=== PATIENT | female | born 1995 | race Caucasian/White ===

== ENCOUNTER 2017-10-11 19:17 | Emergency (ER) | payer OTHER, SELFPAY ==
[2017-10-11] MEDS ORDERED: FENTANYL CITR 100 MCG/2 ML ONE (20:07)
[2017-10-11] MEDS ORDERED: ONDANSETRON 4 MG/2 ML VIAL ONE (20:07)
[2017-10-11 20:23] LABS: Basophils % 0.4 % (0-1.3); Eosinophils % 0.2 % (0-4.4)
[2017-10-11 20:27] LABS: Absolute Lymphocytes (CBC) 1.9 K/uL (0.7-4.9); Absolute Monocytes 1.2 K/uL (0.1-1.3); Absolute Neutrophil 12.8 K/uL (1.8-8.0); Hematocrit 38.1 % (36.0-45.0); MCH 27.5 pg (27.0-35.0); MCV 82.4 fL (80-100); Monocytes % 7.3 % (3.3-12.3); RBC Red Blood Cell Count 4.62 M/uL (3.86-4.86)
--- NOTE | 2017-10-11 20:41 | RAD REPORT ---
EXAM DESCRIPTION: US - Transvaginal Study Probe - 10/11/2017 8:29 pm CLINICAL HISTORY: Vaginal pain, pelvic pain COMPARISON: None. TECHNIQUE: Endovaginal sonography was performed. FINDINGS: Endometrium is 3 mm with no focal endometrial mass, polyp or other suspicious finding. No myometrial mass. Uterus is 6.5 x 3.7 x 5.0 cm. Right ovary is 2.9 x 2.0 x 2.9 cm. Left ovary is 2.7 x 1.7 x 2.0 cm. Small cysts and follicles are seen in each ovary. Doppler evaluation shows normal bloo d flow within the ovarian stroma. No dominant solid or cystic ovarian or adnexal finding. No free flu id or blood in the cul-de-sac. No fallopian tube dilatation. IMPRESSION: Endovaginal ultrasound shows no significant or suspicious finding.
[2017-10-11 21:00] LABS: Albumin 4.1 g/dL (3.4-5.0); Bilirubin Direct 0.1 mg/dL (0-0.2); Bilirubin Total 0.4 mg/dL (0.2-1.0); Potassium 3.9 mmol/L (3.5-5.1); Protein, Total 8.3 g/dL (6.4-8.2)
[2017-10-11 21:31] LABS: Urine Blood NEGATIVE (NEG); Urine Glucose NEGATIVE (NEG); Urine Protein 1+ (NEG); Urine Specific Gravity 1.025 (1.005-1.030)
[2017-10-11] MEDS ORDERED: KETOROLAC 30 MG/ML INJ ONE (21:34)
[2017-10-11 21:39] LABS: Urine Bacteria <20 /HPF (<20); Urine Culture Reflex Order REFLEXED; Urine RBC <5 /HPF (NONE SEEN)
--- NOTE | 2017-10-11 22:12 | RAD REPORT ---
EXAM DESCRIPTION: CT - Abdomen Pelvis W Contrast - 10/11/2017 9:38 pm CLINICAL HISTORY: Vaginal pain, pelvic pain COMPARISON: June 2016 TECHNIQUE: Biphasic, helical CT imaging of the abdomen and pelvis was performed following 100 ml non -ionic IV contrast. Oral contrast was given. All CT scans are performed using dose optimization technique as appropriate and may include automated exposure control or mA/KV adjustment according to patient size. FINDINGS: No suspicious findings in the lung bases. The liver, spleen, and pancreas show no suspicious findings. Gallbladder and biliary tree are also wi thout suspicious finding. Symmetric renal function is seen with no hydronephrosis or suspicious renal mass. No pyelonephritis o r acute renal parenchymal process. Urinary bladder is fully contracted limiting assessment. No suspic ious uterine finding. Ovaries within normal limits. No gastric dilatation or gastric wall thickening. No dilated small bowel loops. Appendix is not clear ly defined. No indirect evidence for appendicitis. Fluid-filled rectum is seen with mild prominence o f the krause. Overall colon krause are mildly prominent. Colon is mostly decompressed and this limits a ssessment. No free air, free fluid or inflammatory stranding. No hernia, mass or bulky lymphadenopathy. No adre nal abnormality. No suspicious bony findings. IMPRESSION: Appendix is not well visualized. No indirect evidence for appendicitis or other surgical ly emergent finding. Suspected mild proctitis/colitis. Correlation is needed with any exam findings. No fallopian tube dilatation or [employer] acute finding seen.
[2017-10-11] MEDS ORDERED: METRONIDAZOLE 500mg IVPB 500 MG/100 ML BAG IV ONE (22:34)
[2017-10-11] MEDS ORDERED: FLUCONAZOLE 100 MG TAB ONE (22:41)
[2017-10-11] MEDS ORDERED: levoFLOXacin 750 MG TAB ONE (22:41)
--- NOTE | 2017-10-11 22:49 | EDPHYS ---
Physician Documentation [facility] Name: Orin Jackman Age: 21 yrs Sex: Female : 1995 Arrival Date: 10/11/2017 Time: 19:21 Bed 27 Private MD: ED Physician Lebron Ordaz HPI: 10/11 19:50 This 21 yrs old Female presents to ER via Wheelchair with complaints of wa Pelvic Pain, Vaginal Pain. 19:50 The patient presents with pelvic pain, that is located in/on the pelvis, the pain does wa not radiate, the pain is described as severe, constant, sharp, urinary symptoms, denies urinary symptoms, denies vag discharge. Onset: The symptoms/episode began/occurred just prior to arrival. Modifying factors: The symptoms are alleviated by nothing, the symptoms are aggravated by nothing. Associated signs and symptoms: Pertinent positives: vomiting, Pertinent negatives: diarrhea, dyspareunia, dysuria, fever, hematuria, urinary frequency, vaginal bleeding, vaginal discharge. Severity of symptoms: At their worst the symptoms were severe, in the emergency department the symptoms are unchanged. The patient has experienced similar episodes in the past, a few times, but not this severe. ovarian cysts were the reason. The patient has not recently seen a physician. 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 - Social history:: Smoking status: Patient uses tobacco products, smokes one-half pack cigarettes per day. - Ebola Screening: : Patient negative for fever greater than or equal to 101.5 degrees Fahrenheit, and additional compatible Ebola Virus Disease symptoms Patient denies exposure to infectious person Patient denies travel to an Ebola-affected area in the 21 days before illness onset No symptoms or risks identified at this time. - Family history:: not pertinent. - Hospitalizations: : No recent hospitalization is reported. ROS: 19:53 Positive for pelvic pain, Negative for urinary symptoms, vaginal bleeding, vaginal wa discharge. 19:53 Constitutional: Negative for fever, chills, and weight loss, Eyes: Negative for injury, pain, redness, and discharge, ENT: Negative for injury, pain, and discharge, Neck: Negative for injury, pain, and swelling, Cardiovascular: Negative for chest pain, palpitations, and edema, Respiratory: Negative for shortness of breath, cough, wheezing, and pleuritic chest pain, Abdomen/GI: Negative for abdominal pain, nausea, vomiting, diarrhea, and constipation, Back: Negative for injury and pain, MS/Extremity: Negative for injury and deformity, Skin: Negative for injury, rash, and discoloration, Neuro: Negative for headache, weakness, numbness, tingling, and seizure, Psych: Negative for depression, anxiety, suicide ideation, homicidal ideation, and hallucinations. 19:53 : Positive for pelvic pain, Negative for urinary symptoms, foul smelling urine, vaginal bleeding, vaginal discharge. Exam: 19:54 Head/Face: Normocephalic, atraumatic. Eyes: Pupils equal round and reactive to light, wa extra-ocular motions intact. Lids and lashes normal. Conjunctiva and sclera are non-icteric and not injected. Cornea within normal limits. Periorbital areas with no swelling, redness, or edema. ENT: Nares patent. No nasal discharge, no septal abnormalities noted. Tympanic membranes are normal and external auditory canals are clear. Oropharynx with no redness, swelling, or masses, exudates, or evidence of obstruction, uvula midline. Mucous membranes moist. Neck: Trachea midline, no thyromegaly or masses palpated, and no cervical lymphadenopathy. Supple, full range of motion without nuchal rigidity, or vertebral point tenderness. No Meningismus. Chest/axilla: Normal chest wall appearance and motion. Nontender with no deformity. No lesions are appreciated. Cardiovascular: Regular rate and rhythm with a normal S1 and S2. No gallops, murmurs, or rubs. Normal PMI, no JVD. No pulse deficits. Respiratory: Lungs have equal breath sounds bilaterally, clear to auscultation and percussion. No rales, rhonchi or wheezes noted. No increased work of breathing, no retractions or nasal flaring. Back: No spinal tenderness. No costovertebral tenderness. Full range of motion. Skin: Warm, dry with normal turgor. Normal color with no rashes, no lesions, and no evidence of cellulitis. MS/ Extremity: Pulses equal, no cyanosis. Neurovascular intact. Full, normal range of motion. Neuro: Awake and alert, GCS 15, oriented to person, place, time, and situation. Cranial nerves II-XII grossly intact. Motor strength 5/5 in all extremities. Sensory grossly intact. Cerebellar exam normal. Normal gait. Psych: Awake, alert, with orientation to person, place and time. Behavior, mood, and affect are within normal limits. 19:54 Constitutional: The patient appears alert, pale. appears in discomfort due to pain. legs curled up 19:54 Abdomen/GI: Exam negative for Inspection: abdomen appears normal, Bowel sounds: normal, Palpation: soft, in all quadrants, moderate abdominal tenderness, in the pelvis. 22:20 : CVA tenderness, is absent, Pelvic Exam: External exam: is normal, Speculum exam: no wa bleeding is noted, os that is closed, no tissue in vagina is seen, bimanual exam reveals no cervical motion tenderness, the nurse was present for the exam, noted yeast-like discharge in vag vault. mild cervicitis noted at os. Vital Signs: 19:36 BP 131 / 88; Pulse 90; Resp 18; Temp 97.6; Pulse Ox 100% on R/A; Weight 49.9 kg; Height aj 5 ft. 3 in. (160.02 cm); 21:06 BP 101 / 60; Pulse 60; Resp 16; Pulse Ox 100% on R/A; kr2 22:24 BP 121 / 68; Pulse 70; Resp 15; Pulse Ox 100% on R/A; kr2 19:36 Body Mass Index 19.49 (49.90 kg, 160.02 cm) MDM: 19:35 Patient medically screened. ne 19:55 Differential diagnosis: ectopic , endometriosis, ovarian cyst, ruptured ne ectopic . 22:45 Data reviewed: vital signs, nurses notes, lab test result(s). Test interpretation: by ne ED physician or midlevel provider: elevated wbc. UA noted for 20-30 wbc's. pelvic US wnl. CT abd/pelvis: proctitis and colitis. Response to treatment: the patient's symptoms have markedly improved after treatment. ED course: on further discussion, pt admits to diarrhea. desired to go home as no one to take care of her kids. will d/c with abx and close GI f/u. . 10/11 19:49 Order name: Basic Metabolic Panel; Complete Time: 21:21 ne 10/11 19:49 Order name: CBC with Diff; Complete Time: 21:21 ne 10/11 19:49 Order name: Hepatic Function; Complete Time: 21:22 ne 10/11 19:49 Order name: Urine Microscopic Only; Complete Time: 22:22 ne 10/11 21:23 Order name: Wet Prep; Complete Time: 22:44 ne 10/11 21:23 Order name: GC (GONORR/CHLAMYDIA) Probe ne 10/11 20:08 Order name: Transvaginal Study Probe; Complete Time: 21:21 [facility] 10/11 20:30 Order name: CT Abd/Pelvis - W/Contrast; Complete Time: 22:22 ne 10/11 21:29 Order name: Urine Dipstick--Ancillary (enter results); Complete Time: 22:22 nc 10/11 21:29 Order name: Urine --Ancillary (enter results); Complete Time: 22:22 nc 10/11 21:40 Order name: Urine Culture [facility] 10/11 19:49 Order name: Urine Test (obtain specimen); Complete Time: 21:41 ne 10/11 19:49 Order name: IV Saline Lock; Complete Time: 21:02 ne 10/11 19:49 Order name: Labs collected and sent; Complete Time: 21:03 ne 10/11 19:49 Order name: Urine Dipstick-Ancillary (obtain specimen); Complete Time: 21:41 ne 10/11 21:22 Order name: Pelvic Exam Setup; Complete Time: 21:41 ne Administered Medications: 20:05 Drug: Zofran 4 mg Route: IVP; Site: right antecubital; kr2 21:09 Follow up: Response: No adverse reaction kr2 20:05 Drug: fentaNYL (PF) 50 mcg Route: IVP; Site: right antecubital; kr2 21:08 Follow up: Response: No adverse reaction; Pain is decreased kr2 21:38 Drug: TORadol 30 mg Route: IVP; Site: right forearm; kr2 22:13 Follow up: Response: No adverse reaction; Pain is decreased kr2 22:28 CANCELLED (Physician Discretion): Zosyn 3.375 grams IVPB once over 60 mins; (mix in NS ne 100 mL) 22:34 Drug: Flagyl 500 mg Volume: 100 ml; Route: IVPB; Rate: 200 ml/hr; Infused Over: 30 mg2 mins; Site: right forearm; 22:43 Drug: DiFLUcan 150 mg Route: PO; mg2 22:44 Drug: LevaQUIN 750 mg Route: PO; mg2 Disposition: 10/11/17 22:48 Discharged to Home. Impression: Acute colitis, Acute proctitis. - Condition is Stable. - Discharge Instructions: Proctitis, Colitis. - Prescriptions for Flagyl 500 mg Oral Tablet - take 1 tablet by ORAL route every 8 hours for 7 days; 21 tablet. Cipro 500 mg Oral Tablet - take 1 tablet by ORAL route every 12 hours for 7 days; 14 tablet. Zofran 4 mg Oral Tablet - take 1 tablet by ORAL route every 12 hours As needed; 20 tablet. Tramadol 50 mg Oral Tablet - take 1 tablet by ORAL route every 8 hours as needed; 12 tablet. - Medication Reconciliation Form, Thank You Letter, Antibiotic Education, Prescription Opioid Use form. - Follow up: Lebron Barcenas MD; When: 1 - 2 days; Reason: Recheck today's complaints. - Problem is new. - Symptoms have improved. - Notes: take antibiotics as prescribed. you need to follow up with the gastro doctor to be checked for inflammatory bowel disease Signatures: Dispatcher [employer] EDMS Valerie Cruz RN RN aj Lebron Ordaz MD MD ne Whit Jensen RN RN kr2 Alirio Sandhu RN RN mg2 Corrections: (The following items were deleted from the chart) 20:29 20:15 Pelvis Complete+US.RAD.BRZ ordered. EDPA EDMS 22:28 22:27 Zosyn 3.375 grams IVPB once over 60 mins; (mix in NS 100 mL) ordered. [facility] 23:06 22:48 10/11/2017 22:48 Discharged to Home. Impression: Acute colitis; Acute proctitis. mg2 Condition is Stable. Forms are Medication Reconciliation Form, Thank You Letter, Antibiotic Education, Prescription Opioid Use. Follow up: Lebron Barcenas; When: 1 - 2 days; Reason: Recheck today's complaints. Problem is new. Symptoms have improved. wa
--- NOTE | 2017-10-11 22:49 | ER ---
Nurse's Notes [facility] Name: Orin Jackman Age: 21 yrs Sex: Female : 1995 Arrival Date: 10/11/2017 Time: 19:21 Bed 27 Private MD: Diagnosis: Acute colitis;Acute proctitis Presentation: 10/11 19:34 Presenting complaint: Patient states: Vaginal and pelvic pain since this AM. Denies aj vaginal bleeding, reports normal period. Denies burning with urination. Transition of care: patient was not received from another setting of care. Onset of symptoms was October 11, 2017. Risk Assessment: Do you want to hurt yourself or someone else? Patient reports no desire to harm self or others. Initial Sepsis Screen: Does the patient meet any 2 criteria? No. Patient's initial sepsis screen is negative. Does the patient have a suspected source of infection? No. Patient's initial sepsis screen is negative. Care prior to arrival: None. 19:34 Method Of Arrival: Wheelchair aj 19:34 Acuity: ROB 3 aj Triage Assessment: 19:36 General: Appears in no apparent distress. uncomfortable, Behavior is calm, cooperative, aj appropriate for age. Pain: Complains of pain in pelvis. Neuro: Level of Consciousness is awake, alert, obeys commands, Oriented to person, place, time, situation, Appropriate for age. Respiratory: Airway is patent Respiratory effort is even, unlabored, Respiratory pattern is regular, symmetrical. Derm: Skin is intact, is healthy with good turgor, Skin is pink, warm \\T\\ dry. normal. 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 - Social history:: Smoking status: Patient uses tobacco products, smokes one-half pack cigarettes per day. - Ebola Screening: : Patient negative for fever greater than or equal to 101.5 degrees Fahrenheit, and additional compatible Ebola Virus Disease symptoms Patient denies exposure to infectious person Patient denies travel to an Ebola-affected area in the 21 days before illness onset No symptoms or risks identified at this time. - Family history:: not pertinent. - Hospitalizations: : No recent hospitalization is reported. Screenin:30 Abuse screen: Denies threats or abuse. Denies injuries from another. Nutritional kr2 screening: No deficits noted. Tuberculosis screening: No symptoms or risk factors identified. Fall Risk None identified. Assessment: 19:30 General: Appears in no apparent distress. uncomfortable, slender, Behavior is kr2 cooperative, anxious, restless. Pain: Complains of pain in pelvis Pain currently is 10 out of 10 on a pain scale. Quality of pain is described as aching, sharp, Is continuous, Alleviated by nothing. Aggravated by increased activity. Neuro: Level of Consciousness is awake, alert, obeys commands, Oriented to person, place, time, situation. Cardiovascular: Capillary refill < 3 seconds in bilateral fingers Patient's skin is warm and dry. Respiratory: Airway is patent Respiratory effort is even, unlabored, Respiratory pattern is regular, symmetrical. GI: Abdomen is flat, non-distended. : Denies burning with urination. EENT: Oral mucosa is dry. Derm: Skin is intact, is healthy with good turgor, Skin is pale, pink. Musculoskeletal: Circulation, motion, and sensation intact. 21:06 Reassessment: Patient appears in no apparent distress at this time. Patient and/or kr2 family updated on plan of care and expected duration. Pain level reassessed. Patient is alert, oriented x 3, equal unlabored respirations, skin warm/dry/pink. Patient states symptoms have improved. 21:30 Reassessment: Patient states she is starting to have pain again, 10/21. Dr. Sushma rivero notified, see MAY. 22:24 Reassessment: Patient appears in no apparent distress at this time. Patient and/or kr2 family updated on plan of care and expected duration. Pain level reassessed. Patient is alert, oriented x 3, equal unlabored respirations, skin warm/dry/pink. Patient states feeling better. Patient states symptoms have improved. Vital Signs: 19:36 BP 131 / 88; Pulse 90; Resp 18; Temp 97.6; Pulse Ox 100% on R/A; Weight 49.9 kg; Height aj 5 ft. 3 in. (160.02 cm); 21:06 BP 101 / 60; Pulse 60; Resp 16; Pulse Ox 100% on R/A; kr2 22:24 BP 121 / 68; Pulse 70; Resp 15; Pulse Ox 100% on R/A; kr2 19:36 Body Mass Index 19.49 (49.90 kg, 160.02 cm) ED Course: 19:21 Patient arrived in ED. es 19:30 Patient has correct armband on for positive identification. Bed in low position. Call kr2 light in reach. Side rails up X 1. Adult w/ patient. Pulse ox on. NIBP on. Door closed. Noise minimized. Warm blanket given. Head of bed elevated. 19:35 Lebron Ordaz MD is Attending Physician. wa 19:35 Triage completed. aj 19:36 Arm band placed on left wrist. aj 19:55 Whit Jensen, RN is Primary Nurse. kr2 20:00 Inserted saline lock: 20 gauge in right antecubital area, using aseptic technique. kr2 Blood collected. 20:30 Transvaginal Study Probe In Process Unspecified. EDMS 20:31 Radiology exam delayed due to lab results not completed at this time. test sj not completed at this time. 21:04 Radiology exam delayed due to test not completed at this time. sj 21:16 Radiology exam delayed due to test not completed at this time. sj 21:[address] nj 21:39 CT completed. Patient tolerated procedure well. Patient moved back from CT. nj 21:39 CT Abd/Pelvis - W/Contrast In Process Unspecified. EDMS 22:10 Assist provider with pelvic exam: Set up pelvic tray. Performed by Lebron Ordaz MD kr2 Specimens sent to lab. Patient tolerated well. 22:47 Lebron Barcenas MD is Referral Physician. wa 23:06 IV discontinued, intact, bleeding controlled, No redness/swelling at site. Pressure mg2 dressing applied. Administered Medications: 20:05 Drug: Zofran 4 mg Route: IVP; Site: right antecubital; kr2 21:09 Follow up: Response: No adverse reaction kr2 20:05 Drug: fentaNYL (PF) 50 mcg Route: IVP; Site: right antecubital; kr2 21:08 Follow up: Response: No adverse reaction; Pain is decreased kr2 21:38 Drug: TORadol 30 mg Route: IVP; Site: right forearm; kr2 22:13 Follow up: Response: No adverse reaction; Pain is decreased kr2 22:28 CANCELLED (Physician Discretion): Zosyn 3.375 grams IVPB once over 60 mins; (mix in NS wa 100 mL) 22:34 Drug: Flagyl 500 mg Volume: 100 ml; Route: IVPB; Rate: 200 ml/hr; Infused Over: 30 mg2 mins; Site: right forearm; 22:43 Drug: DiFLUcan 150 mg Route: PO; mg2 22:44 Drug: LevaQUIN 750 mg Route: PO; mg2 Outcome: 22:48 Discharge ordered by . wa 23:06 Discharged to home ambulatory, with family. mg2 23:06 Condition: stable 23:06 Discharge instructions given to patient, family, Instructed on discharge instructions, follow up and referral plans. medication usage, Demonstrated understanding of instructions, follow-up care, medications, Prescriptions given X 4. 23:06 Patient left the ED. mg2 Signatures: Dispatcher [employer] Valerie Blanco, RN RN Marcella Almeida Susan sj Jordan, Nathan nj Appiah, William, MD MD wa Reaves, Karey, RN RN kr2 Alirio Sandhu RN RN mg2
[2017-10-11 23:12] VITALS: TEMP 97.6; O2SAT 100
[2017-10-11 23:14] VITALS: BP 121/68
[2017-10-12] MEDS ORDERED: NA CHLORIDE 0.9% 1,000 ML ONE (18:58)
[2017-10-12] MEDS ORDERED: PROMETHAZINE 25 MG TABLET ONE (19:21)
[2017-10-12] MEDS ORDERED: DICYCLOMINE HCL 10 MG CAP ONE (20:02)
[2017-10-12] MEDS ORDERED: DEXAMETHASONE 4 MG TAB ONE (20:02)
[2017-10-14 09:30] LABS: C.trachomatis RNA,TMA Not Detected (Not Detected)
== END 2017-10-11 23:06 | disposition home or self-care (01) ==
LOC: ER 19:17
DX: K52.89 Other specified noninfective gastroenteritis and colitis (principal); F17.210 Nicotine dependence, cigarettes, uncomplicated; K62.89 Other specified diseases of anus and rectum
CPT/HCPCS: 36415; 74177; 76830; 80048; 80076; 81003; 81015; 81025; 85025; 87086; 87088; 87210; 87490; 87590; 99285; J2405; J3010; J7030; Q9967

== ENCOUNTER 2017-10-12 18:14 | Emergency (ER) | payer SELFPAY ==
[2017-10-12 19:12] LABS: Absolute Lymphocytes (CBC) 2.7 K/uL (0.7-4.9); Absolute Monocytes 0.7 K/uL (0.1-1.3); Absolute Neutrophil 7.4 K/uL (1.8-8.0); Basophils % 0.5 % (0-1.3); Eosinophils % 0.2 % (0-4.4); Hematocrit 36.3 % (36.0-45.0); Lymphocytes % 25.2 % (15.3-44.8); MCH 27.2 pg (27.0-35.0); MPV 7.6 fL (7.6-11.3); Monocytes % 6.7 % (3.3-12.3); RBC Red Blood Cell Count 4.43 M/uL (3.86-4.86)
[2017-10-12 19:30] LABS: Albumin 3.8 g/dL (3.4-5.0); Bilirubin Direct 0.2 mg/dL (0-0.2); Bilirubin Total 0.5 mg/dL (0.2-1.0); Potassium 3.9 mmol/L (3.5-5.1); Protein, Total 8.1 g/dL (6.4-8.2)
[2017-10-12 19:37] LABS: Urine Blood NEGATIVE (NEG); Urine Glucose NEGATIVE (NEG); Urine Protein 1+ (NEG); Urine Specific Gravity 1.025 (1.005-1.030)
--- NOTE | 2017-10-12 19:45 | ER ---
Nurse's Notes [facility] Name: Orin Jackman Age: 21 yrs Sex: Female : 1995 Arrival Date: 10/12/2017 Time: 18:17 Bed 25 Private MD: None, None Diagnosis: Other and unspecified noninfective gastroenteritis and colitis Presentation: 10/12 18:42 Presenting complaint: Patient states: I was seen here last night and tests were done, sg dc to home with medications, today i have had blood in my stool since about 0600 this morning, its just been getting worse all day, i have not been able to get in to the hospital d/t not having childcare for my son today. reports taking a tramadol but no relief in the pain, abd cramping that is sharp and intermittent, upper and lower abd, reports blood in stool that is bright red. Transition of care: patient was not received from another setting of care. Onset of symptoms was October 12, 2017. Risk Assessment: Do you want to hurt yourself or someone else? Patient reports no desire to harm self or others. Initial Sepsis Screen: Does the patient meet any 2 criteria? No. Patient's initial sepsis screen is negative. Does the patient have a suspected source of infection? No. Patient's initial sepsis screen is negative. Care prior to arrival: None. 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 - Social history:: Smoking status: Patient/guardian denies using tobacco. - Ebola Screening: : Patient negative for fever greater than or equal to 101.5 degrees Fahrenheit, and additional compatible Ebola Virus Disease symptoms Patient denies exposure to infectious person Patient denies travel to an Ebola-affected area in the 21 days before illness onset No symptoms or risks identified at this time. Screenin:44 Abuse screen: Denies threats or abuse. Nutritional screening: No deficits noted. tw2 Tuberculosis screening: No symptoms or risk factors identified. Fall Risk None identified. Assessment: 18:49 General: Appears in no apparent distress. slender, well groomed, Behavior is calm, tw2 cooperative, appropriate for age. Pain: Denies pain. Neuro: Level of Consciousness is awake, alert, obeys commands, Oriented to person, place, time, situation. Cardiovascular: Denies chest pain, shortness of breath, Heart tones S1 S2 Capillary refill < 3 seconds. Respiratory: Airway is patent Respiratory effort is even, unlabored, Respiratory pattern is regular, symmetrical, Breath sounds are clear bilaterally. GI: Abdomen is flat, Bowel sounds present X 4 quads. Reports bloody stool. GI: Reports bloody stool, "noticed it this morning". : No signs and/or symptoms were reported regarding the genitourinary system. EENT: No signs and/or symptoms were reported regarding the EENT system. Derm: Skin is intact, is healthy with good turgor, Skin is pale, Skin temperature is warm. Musculoskeletal: No signs and/or symptoms reported regarding the musculoskeletal system. Range of motion: intact in all extremities. 19:30 Reassessment: Patient appears in no apparent distress at this time. Patient is alert, lp1 oriented x 3, equal unlabored respirations, skin warm/dry/pink. Vital Signs: 18:44 BP 134 / 88; Pulse 75; Resp 16 S; Temp 97.7; Pulse Ox 100% on R/A; Weight 48.53 kg (R); sg Pain 10/10; 19:10 BP 115 / 80 Supine; Pulse 91; tw2 19:10 BP 126 / 90 Sitting; Pulse 87; tw2 19:10 BP 120 / 81 Standing; Pulse 89; tw2 19:45 BP 121 / 75; Pulse 77; Resp 16; Pulse Ox 100% on R/A; lp1 ED Course: 18:17 Patient arrived in ED. sb2 18:17 None, None is Private Physician. sb2 18:27 Arm band placed on. sg 18:41 [facility]-C [facility]. snw 18:41 Norbert Cobb MD is Attending Physician. snw 18:44 Triage completed. sg 18:45 Bed in low position. Call light in reach. Pulse ox on. NIBP on. tw2 18:45 Urine collected: clean catch specimen, clear, ritesh colored. jp3 19:00 Report given to Jamila<RN. tw2 19:00 Missed attempt(s): 22 gauge in left antecubital area. blood collected and sent, pt tw2 requests to wait 15 minutes prior to another stick, CELIO Marino notified.. 19:53 Jamila Quezada, RN is Primary Nurse. lp1 20:12 No provider procedures requiring assistance completed. Patient did not have IV access lp1 during this emergency room visit. Administered Medications: 19:19 Drug: Phenergan 25 mg Route: PO; tw2 20:11 Follow up: Response: No adverse reaction; Nausea is decreased lp1 20:00 Drug: Decadron 8 mg Route: PO; lp1 20:11 Follow up: Response: Medication administered at discharge. lp1 20:00 Drug: Bentyl 20 mg Route: PO; lp1 20:11 Follow up: Response: Medication administered at discharge. lp1 20:11 Not Given (Patient refused IV access, Provider aware): NS 0.9% 1000 ml IV at 125 ml/hr lp1 continuous Outcome: 19:45 Discharge ordered by MD. snw 20:12 Discharged to home ambulatory. lp1 20:12 Condition: good 20:12 Discharge instructions given to patient, Instructed on discharge instructions, follow up and referral plans. medication usage, Demonstrated understanding of instructions, follow-up care, medications, Prescriptions given X 2. 20:13 Patient left the ED. lp1 Signatures: Sridhar Gray, RN CELIO sg Arianna Arenas, TECHNICAL PROPOSAL WRITER-C TECHNICAL PROPOSAL WRITER-Csnw Jamila Quezada RN RN lp1 Sandy Bella RN RN tw2 Dariela Mishra Jacob jp3
--- NOTE | 2017-10-12 19:45 | EDPHYS ---
Physician Documentation [facility] Name: Orin Jackman Age: 21 yrs Sex: Female : 1995 Arrival Date: 10/12/2017 Time: 18:17 Bed 25 Private MD: None, None ED Physician Norbert Cobb HPI: 10/12 20:02 This 21 yrs old Female presents to ER via Ambulatory with complaints of snw Bloody Stools. 20:02 The patient presents with abdominal pain crampy, wave like abdominal pain with snw gelatinous, bloody stools. Onset: The symptoms/episode began/occurred suddenly, 4 month(s) ago, and became persistent. The symptoms do not radiate. Associated signs and symptoms: none. The symptoms are described as crampy. Severity of pain: At its worst the pain was moderate. The patient has experienced similar episodes in the past, multiple times, with the last episode occurring last night. The patient has been recently seen at the [facility] Emergency Department, yesterday, for similar complaints labs were performed, an ultrasound was performed, CT scan was performed, was given IV fluids, was given a prescription for antibiotics, was given a prescription for pain medications, was given a prescription for an antiemetic. 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 - Social history:: Smoking status: Patient/guardian denies using tobacco. - Ebola Screening: : Patient negative for fever greater than or equal to 101.5 degrees Fahrenheit, and additional compatible Ebola Virus Disease symptoms Patient denies exposure to infectious person Patient denies travel to an Ebola-affected area in the 21 days before illness onset No symptoms or risks identified at this time. ROS: 19:58 Constitutional: Negative for fever, chills, and weight loss, Eyes: Negative for injury, snw pain, redness, and discharge, ENT: Negative for injury, pain, and discharge, Neck: Negative for injury, pain, and swelling, Cardiovascular: Negative for chest pain, palpitations, and edema, Respiratory: Negative for shortness of breath, cough, wheezing, and pleuritic chest pain, Back: Negative for injury and pain, : Negative for injury, bleeding, discharge, and swelling, MS/Extremity: Negative for injury and deformity, Skin: Negative for injury, rash, and discoloration, Neuro: Negative for headache, weakness, numbness, tingling, and seizure. 19:58 Abdomen/GI: Positive for abdominal pain, abdominal cramps, rectal bleeding, gelatinous stool with blood. Exam: 19:58 Constitutional: This is a well developed, well nourished patient who is awake, alert, snw and in no acute distress. Head/Face: Normocephalic, atraumatic. Eyes: Pupils equal round and reactive to light, extra-ocular motions intact. Lids and lashes normal. Conjunctiva and sclera are non-icteric and not injected. Cornea within normal limits. Periorbital areas with no swelling, redness, or edema. ENT: Nares patent. No nasal discharge, no septal abnormalities noted. Tympanic membranes are normal and external auditory canals are clear. Oropharynx with no redness, swelling, or masses, exudates, or evidence of obstruction, uvula midline. Mucous membranes moist. Neck: Trachea midline, no thyromegaly or masses palpated, and no cervical lymphadenopathy. Supple, full range of motion without nuchal rigidity, or vertebral point tenderness. No Meningismus. Chest/axilla: Normal chest wall appearance and motion. Nontender with no deformity. No lesions are appreciated. Cardiovascular: Regular rate and rhythm with a normal S1 and S2. No gallops, murmurs, or rubs. Normal PMI, no JVD. No pulse deficits. Respiratory: Lungs have equal breath sounds bilaterally, clear to auscultation and percussion. No rales, rhonchi or wheezes noted. No increased work of breathing, no retractions or nasal flaring. Abdomen/GI: Soft, non-tender, with normal bowel sounds. No distension or tympany. No guarding or rebound. No evidence of tenderness throughout. Back: No spinal tenderness. No costovertebral tenderness. Full range of motion. MS/ Extremity: Pulses equal, no cyanosis. Neurovascular intact. Full, normal range of motion. Neuro: Awake and alert, GCS 15, oriented to person, place, time, and situation. Cranial nerves II-XII grossly intact. Motor strength 5/5 in all extremities. Sensory grossly intact. Cerebellar exam normal. Normal gait. 19:58 Skin: Appearance: Color: pale. 19:58 Abdomen/GI: stool gelatinous, guaiac +. snw Vital Signs: 18:44 BP 134 / 88; Pulse 75; Resp 16 S; Temp 97.7; Pulse Ox 100% on R/A; Weight 48.53 kg (R); sg Pain 10/10; 19:10 BP 115 / 80 Supine; Pulse 91; tw2 19:10 BP 126 / 90 Sitting; Pulse 87; tw2 19:10 BP 120 / 81 Standing; Pulse 89; tw2 19:45 BP 121 / 75; Pulse 77; Resp 16; Pulse Ox 100% on R/A; lp1 MDM: 18:41 Patient medically screened. snw 20:00 Data reviewed: vital signs, nurses notes. Data interpreted: Pulse oximetry: on room air snw is 100 %. Interpretation: normal. Counseling: I had a detailed discussion with the patient and/or guardian regarding: the historical points, exam findings, and any diagnostic results supporting the discharge/admit diagnosis, the presence of at least one elevated blood pressure reading (>120/80) during this emergency department visit, lab results, the need for outpatient follow up, to return to the emergency department if symptoms worsen or persist or if there are any questions or concerns that arise at home. Special discussion: Based on the patient's Hx, exam, and Dx evaluation, there is no indication for emergent surgery or inpatient Tx. It is understood by the patient/guardian that if the Sx's persist or worsen they need to return immediately for re-evaluation. I have referred the patient to see his PCP for further evaluation of high blood pressure. Based on the history and exam findings, there is no indication for further emergent testing or inpatient evaluation. 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 I discussed with the patient/guardian the need to see the primary care provider for further evaluation of the symptoms. 10/12 18:50 Order name: Basic Metabolic Panel; Complete Time: 19:41 snw 10/12 18:50 Order name: CBC with Diff; Complete Time: 19:41 snw 10/12 18:50 Order name: Creatinine for Radiology; Complete Time: 19:41 snw 10/12 18:50 Order name: Hepatic Function; Complete Time: 19:41 snw 10/12 18:50 Order name: Lipase; Complete Time: 19:41 snw 10/12 19:15 Order name: Urine Dipstick--Ancillary (enter results); Complete Time: 19:41 eb 10/12 18:50 Order name: Labs collected and sent; Complete Time: 19:13 snw 10/12 18:50 Order name: Urine Dipstick-Ancillary (obtain specimen); Complete Time: 18:52 snw 10/12 19:15 Order name: Urine --Ancillary (enter results); Complete Time: 19:41 eb 10/12 18:50 Order name: Orthostatics; Complete Time: 19:13 snw Administered Medications: 19:19 Drug: Phenergan 25 mg Route: PO; tw2 20:11 Follow up: Response: No adverse reaction; Nausea is decreased lp1 20:00 Drug: Decadron 8 mg Route: PO; lp1 20:11 Follow up: Response: Medication administered at discharge. lp1 20:00 Drug: Bentyl 20 mg Route: PO; lp1 20:11 Follow up: Response: Medication administered at discharge. lp1 20:11 Not Given (Patient refused IV access, Provider aware): NS 0.9% 1000 ml IV at 125 ml/hr lp1 continuous Disposition: 10/13 06:50 Co-signature as Attending Physician, Norbert Cobb MD I agree with the assessment and gavino plan of care. Disposition: 10/12/17 19:45 Discharged to Home. Impression: Other and unspecified noninfective gastroenteritis and colitis. - Condition is Stable. - Discharge Instructions: Crohn Disease, Clear Liquid Diet, Adult, Diet for Lactose Intolerance, Adult, Colitis. - Prescriptions for Bentyl 20 mg Oral Tablet - take 1 tablet by ORAL route every 6 hours As needed; 20 tablet. promethazine 25 mg Oral Tablet - take 1 tablet by ORAL route every 6 hours As needed; 20 tablet. - Medication Reconciliation Form, Thank You Letter, Antibiotic Education, Prescription Opioid Use form. - Follow up: Private Physician; When: 1 - 2 days; Reason: Recheck today's complaints, Continuance of care, Re-evaluation by your physician. Signatures: Dispatcher [employer] Sridhar Thomas, RN RN Norbert Callejas MD MD cha Therrien, Shelly, IUSS ANALYST-C IUSS ANALYST-Csnw Jamila Quezada, RN RN lp1 Sandy Bella RN RN tw2 Corrections: (The following items were deleted from the chart) 10/12 20:10 18:50 IV Saline Lock ordered. snw lp1 20:13 19:45 10/12/2017 19:45 Discharged to Home. Impression: Other and unspecified lp1 noninfective gastroenteritis and colitis. Condition is Stable. Forms are Medication Reconciliation Form, Thank You Letter, Antibiotic Education, Prescription Opioid Use. Follow up: Private Physician; When: 1 - 2 days; Reason: Recheck today's complaints, Continuance of care, Re-evaluation by your physician. vlad
[2017-10-12 20:32] VITALS: TEMP 97.7; O2SAT 100
[2017-10-12 20:34] VITALS: BP 121/75
== END 2017-10-12 20:13 | disposition home or self-care (01) ==
LOC: ER 18:14
DX: K52.89 Other specified noninfective gastroenteritis and colitis (principal)
CPT/HCPCS: 36415; 80048; 80076; 81003; 81025; 83690; 85025; 99284

== ENCOUNTER 2019-01-19 21:49 | Emergency (ER) | payer SELFPAY ==
[2019-01-19] MEDS ORDERED: IPRATROPIUM BROM 0.5MG/2.5ML ONE (23:10)
[2019-01-19] MEDS ORDERED: ALBUTEROL 2.5 MG/3 ML NEB SOL ONE (23:10)
[2019-01-19] MEDS ORDERED: BENZONATATE 100 MG CAP PO ONE (23:10)
[2019-01-19] MEDS ORDERED: ACETAMINOPHEN 500 MG TAB ONE (23:39)
[2019-01-20 00:11] LABS: Urine Blood NEGATIVE (NEG); Urine Glucose NEGATIVE (NEG); Urine Protein NEGATIVE (NEG); Urine pH 8.5 (5.0-7.0)
--- NOTE | 2019-01-20 00:23 | EDPHYS ---
Physician Documentation [facility] Name: Orin Jackman Age: 23 yrs Sex: Female : 1995 Arrival Date: 01/19/2019 Time: 22:03 Bed 8 Private MD: ED Physician Lebron Ordaz HPI: 01/19 22:15 This 23 yrs old Female presents to ER via Ambulatory with complaints of cp Contusion, Feels faint. 22:15 The patient or guardian reports cough, that is intermittent, with productive sputum, cp that is yellow. Onset: The symptoms/episode began/occurred 1 week(s) ago. Associated signs and symptoms: Pertinent positives: sore throat, Pertinent negatives: chest pain, diarrhea, fever, vomiting. Severity of symptoms: in the emergency department the symptoms are unchanged despite home interventions. Patient reports having to leave work today because she felt confused and lightheaded. 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 - Social history:: Smoking status: Patient/guardian denies using tobacco, Patient uses vapes. - Ebola Screening: : No symptoms or risks identified at this time. ROS: 22:20 Constitutional: Negative for body aches, chills, fever, poor PO intake. cp 22:20 Eyes: Negative for injury, pain, redness, and discharge. cp 22:20 ENT: Positive for sore throat, Negative for drainage from ear(s), ear pain, difficulty cp swallowing, difficulty handling secretions. 22:20 Neck: Negative for pain with movement, pain at rest, stiffness, swollen nodes, bony tenderness. 22:20 Cardiovascular: Negative for chest pain, edema, palpitations. 22:20 Respiratory: Positive for cough, Negative for shortness of breath, wheezing. 22:20 Abdomen/GI: Negative for abdominal pain, nausea, vomiting, and diarrhea. 22:20 Skin: Negative for rash. 22:20 Neuro: Positive for lightheaded, Negative for altered mental status, headache, syncope, weakness. 22:20 All other systems are negative. Exam: 22:30 Constitutional: The patient appears in no acute distress, alert, awake, non-toxic, well cp developed, well nourished. 22:30 Head/Face: Normocephalic, atraumatic. cp 22:30 Eyes: Periorbital structures: appear normal, Conjunctiva: normal, no exudate, no injection, Lids and lashes: appear normal, bilaterally. 22:30 ENT: External ear(s): are unremarkable, Ear canal(s): are normal, clear, TM's: bulging, is not appreciated, bilaterally, dullness, bilaterally, erythema, is not appreciated, bilaterally, Nose: is normal, Mouth: Lips: moist, Oral mucosa: moist, Posterior pharynx: Airway: no evidence of obstruction, patent, Tonsils: no enlargement, no exudate, swelling, is not appreciated, erythema, that is mild, exudate, is not appreciated. 22:30 Neck: ROM/movement: is normal, is supple, without pain, no range of motions limitations, no meningismus, no nuchal rigidity. 22:30 Chest/axilla: Inspection: normal, Palpation: is normal, no crepitus, no tenderness. 22:30 Cardiovascular: Rate: normal, Rhythm: regular, Edema: is not appreciated, JVD: is not appreciated. 22:30 Respiratory: the patient does not display signs of respiratory distress, Respirations: normal, no use of accessory muscles, no retractions, no splinting, no tachypnea, labored breathing, is not present, Breath sounds: bronchial sounds, that are mild, are heard diffusely, decreased breath sounds, are not appreciated, stridor, is not appreciated, wheezing: is not appreciated. 22:30 Abdomen/GI: Inspection: abdomen appears normal, Bowel sounds: active, all quadrants, Palpation: abdomen is soft and non-tender, in all quadrants. 22:30 Back: pain, is absent, ROM is normal. 22:30 Skin: no rash present. 22:30 Neuro: Orientation: to person, place \\T\\ time. Mentation: is normal, Cerebellar function: is grossly normal, Motor: moves all fours, strength is normal, Sensation: is normal, Gait: is steady. Vital Signs: 22:18 BP 117 / 78; Pulse 81; Resp 16 S; Temp 98.8(O); Pulse Ox 97% on R/A; Weight 49.9 kg bb (R); Height 5 ft. 3 in. (160.02 cm) (R); Pain 2/10; 22:52 BP 108 / 62 Supine; Pulse 72; oe 22:54 BP 99 / 66 Sitting; Pulse 69; oe 22:56 BP 88 / 68 Standing; Pulse 69; oe 23:16 BP 105 / 69; Pulse 64; Resp 16; Pulse Ox 100% on R/A; aa1 01/20 00:14 BP 103 / 56; Pulse 67; Resp 16; Temp 98.5; Pulse Ox 99% on R/A; Pain 0/10; aa1 01/19 22:18 Body Mass Index 19.49 (49.90 kg, 160.02 cm) bb MDM: 01/19 22:24 Patient medically screened. cp 23:00 Differential diagnosis: bronchitis, flu, URI, pneumonia, strep throat. cp 01/20 00:21 Data reviewed: vital signs, nurses notes, lab test result(s), radiologic studies, plain cp films. 00:21 Antibiotic administration: Not indicated, the patient does not have an appreciated cp infiltrate. Test interpretation: by ED physician or midlevel provider: plain radiologic studies, chest xray negative for infiltrates. Counseling: I had a detailed discussion with the patient and/or guardian regarding: the historical points, exam findings, and any diagnostic results supporting the discharge/admit diagnosis, lab results, radiology results, the need for outpatient follow up, a family practitioner, to return to the emergency department if symptoms worsen or persist or if there are any questions or concerns that arise at home. 00:21 Response to treatment: the patient's symptoms have mildly improved after treatment, and cp as a result, I will discharge patient. 01/19 22:25 Order name: Influenza Screen (a \\T\\ B); Complete Time: 23:57 cp 01/19 22:38 Order name: Strep; Complete Time: 23:57 cp 01/19 23:57 Interpretation: Reviewed. cp 01/19 23:50 Order name: Throat Culture EDIA 01/19 23:55 Order name: Urine Dipstick--Ancillary (enter results); Complete Time: 00:23 ar5 01/19 22:10 Order name: Orthostatics; Complete Time: 23:15 cp 01/19 22:10 Order name: Urine Dipstick-Ancillary (obtain specimen); Complete Time: 23:51 cp 01/19 22:28 Order name: XRAY Chest Pa And Lat (2 Views) cp 01/19 22:10 Order name: Urine Test (obtain specimen); Complete Time: 23:51 cp Administered Medications: 01/19 23:15 Drug: Albuterol 2.5 mg Route: Inhalation; aa1 23:15 Drug: AtroVENT Aerosol 0.5 mg Route: Inhalation; aa1 23:50 Drug: Tessalon Perle 200 mg Route: PO; aa1 23:50 Drug: Tylenol 1000 mg Route: PO; aa1 01/20 00:13 CANCELLED (Patient Refused): NS 0.9% 1000 ml IV at 1 bolus Per protocol; 1000 mL bolus aa1 Disposition: 01/20/19 00:22 Discharged to Home. Impression: Acute bronchitis. - Condition is Stable. - Discharge Instructions: Acute Bronchitis, Adult. - Prescriptions for Ibuprofen 600 mg Oral Tablet - take 1 tablet by ORAL route every 6 hours As needed take with food; 30 tablet. Tessalon Perles 100 mg Oral Capsule - take 2 capsule by ORAL route every 8 hours As needed; 30 capsule. Albuterol Sulfate 90 mcg/actuation - inhale 1-2 puff by INHALATION route every 4-6 hours; 1 Inhaler. - Medication Reconciliation Form, Thank You Letter, Antibiotic Education, Prescription Opioid Use form. - Work release form (01/20/19 00:42). ar5 - Follow up: Private Physician; When: 2 - 3 days; Reason: Worsening of condition. - Problem is new. - Symptoms have improved. Signatures: Dispatcher [employer] EDIA Nicole Pack RN RN aa1 Willow Matthews RN RN Norbert Giron PA PA cp Robles, Autumn ar5 Corrections: (The following items were deleted from the chart) 00:13 01/19 23:59 NS 0.9% 1000 ml IV at 1 bolus Per protocol; 1000 mL bolus ordered. cp aa1 01/20 00:13 00:00 IV Saline Lock ordered. cp aa1 00:26 01/19 23:59 CBC+H.LAB.BRZ ordered. EDMS EDMS 01/20 00:26 01/19 23:59 BASIC METABOLIC PANEL+C.LAB.BRZ ordered. EDMS EDMS 01/20 00:41 00:22 01/20/2019 00:22 Discharged to Home. Impression: Acute bronchitis. Condition is aa1 Stable. Forms are Medication Reconciliation Form, Thank You Letter, Antibiotic Education, Prescription Opioid Use. Follow up: Private Physician; When: 2 - 3 days; Reason: Worsening of condition. Problem is new. Symptoms have improved. cp
--- NOTE | 2019-01-20 00:23 | ER ---
Nurse's Notes [facility] Name: Orin Jackman Age: 23 yrs Sex: Female : 1995 Arrival Date: 01/19/2019 Time: 22:03 Bed 8 Private MD: Diagnosis: Acute bronchitis Presentation: 01/19 22:15 Presenting complaint: Patient states: she has been feeling ill for approx one week has bb a cough and congestion states several family members at home have bronchitis pt states she was sent home from work today because she was confused, she has a headache, and a sore throat with some neck pain as well. Transition of care: patient was not received from another setting of care. Onset of symptoms was January 13, 2019. Risk Assessment: Do you want to hurt yourself or someone else? Patient reports no desire to harm self or others. Initial Sepsis Screen: Does the patient meet any 2 criteria? No. Patient's initial sepsis screen is negative. Does the patient have a suspected source of infection? No. Patient's initial sepsis screen is negative. Care prior to arrival: None. 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 - Social history:: Smoking status: Patient/guardian denies using tobacco, Patient uses vapes. - Ebola Screening: : No symptoms or risks identified at this time. Screenin:30 Abuse screen: Denies threats or abuse. Denies injuries from another. Nutritional aa1 screening: No deficits noted. Tuberculosis screening: No symptoms or risk factors identified. Fall Risk None identified. Assessment: 23:30 General: Appears in no apparent distress. comfortable, Behavior is calm, cooperative, aa1 appropriate for age. Pain: Denies pain. Neuro: Level of Consciousness is awake, alert, obeys commands, Oriented to person, place, time, situation, Moves all extremities. Full function Speech is normal. Cardiovascular: Heart tones S1 S2 present Rhythm is regular. Cardiovascular: Reports fatigue. Respiratory: Reports cough that is Airway is patent Respiratory effort is even, unlabored, Respiratory pattern is regular, symmetrical. GI: No signs and/or symptoms were reported involving the gastrointestinal system. : No signs and/or symptoms were reported regarding the genitourinary system. EENT: Reports nasal congestion. Derm: Skin is intact, is healthy with good turgor, Skin is pink, warm \\T\\ dry. Musculoskeletal: Circulation, motion, and sensation intact. Capillary refill < 3 seconds. 01/20 00:14 Reassessment: Patient appears in no apparent distress at this time. Patient and/or aa1 family updated on plan of care and expected duration. Pain level reassessed. Patient is alert, oriented x 3, equal unlabored respirations, skin warm/dry/pink. PA at bedside discussing results with pt. Recommended IVF bolus and blood work but pt states she does not wish to have that done. 00:39 Reassessment: Patient appears in no apparent distress at this time. Patient is alert, aa1 oriented x 3, equal unlabored respirations, skin warm/dry/pink. Discussed d/c 7 f/u instructions with pt; denies questions or concerns at this time. Ambulatory to lobby with steady gait Patient denies pain at this time. Patient states feeling better. Vital Signs: 01/19 22:18 BP 117 / 78; Pulse 81; Resp 16 S; Temp 98.8(O); Pulse Ox 97% on R/A; Weight 49.9 kg bb (R); Height 5 ft. 3 in. (160.02 cm) (R); Pain 2/10; 22:52 BP 108 / 62 Supine; Pulse 72; oe 22:54 BP 99 / 66 Sitting; Pulse 69; oe 22:56 BP 88 / 68 Standing; Pulse 69; oe 23:16 BP 105 / 69; Pulse 64; Resp 16; Pulse Ox 100% on R/A; aa1 01/20 00:14 BP 103 / 56; Pulse 67; Resp 16; Temp 98.5; Pulse Ox 99% on R/A; Pain 0/10; aa1 01/19 22:18 Body Mass Index 19.49 (49.90 kg, 160.02 cm) bb ED Course: 01/19 22:03 Patient arrived in ED. cf2 22:09 Norbert Talavera PA is PHCP. cp 22:09 Lebron Ordaz MD is Attending Physician. cp 22:17 Triage completed. bb 22:17 Ryan Rodriguez, RN is Primary Nurse. jb4 22:18 Arm band placed on Patient placed in an exam room, on a stretcher, on pulse oximetry. bb Family accompanied patient. 22:48 XRAY Chest Pa And Lat (2 Views) In Process Unspecified. EDMS 23:30 Patient has correct armband on for positive identification. Bed in low position. Call aa1 light in reach. Pulse ox on. NIBP on. 01/20 00:39 No provider procedures requiring assistance completed. Patient did not have IV access aa1 during this emergency room visit. Administered Medications: 01/19 23:15 Drug: Albuterol 2.5 mg Route: Inhalation; aa1 23:15 Drug: AtroVENT Aerosol 0.5 mg Route: Inhalation; aa1 23:50 Drug: Tessalon Perle 200 mg Route: PO; aa1 23:50 Drug: Tylenol 1000 mg Route: PO; aa1 01/20 00:13 CANCELLED (Patient Refused): NS 0.9% 1000 ml IV at 1 bolus Per protocol; 1000 mL bolus aa1 Outcome: 00:22 Discharge ordered by MD. cp 00:39 Discharged to home ambulatory, with significant other. aa1 00:39 Condition: good 00:39 Discharge instructions given to patient, significant other, Instructed on discharge instructions, follow up and referral plans. medication usage, Demonstrated understanding of instructions, follow-up care, medications, Prescriptions given X 3. 00:41 Patient left the ED. aa1 Signatures: Dispatcher [employer] EDMD Nicole Pack, RN RN aa1 Willow Matthews, RN RN Norbert Giron PA PA cp Bryson, James, RN RN jb4 Joseph Ponce Celesta cf2
[2019-01-20 00:53] VITALS: BP 103/56; TEMP 98.5; O2SAT 99
--- NOTE | 2019-01-20 08:58 | RAD REPORT ---
EXAM DESCRIPTION: RAD - Chest Pa And Lat (2 Views) - 01/19/2019 10:51 pm CLINICAL HISTORY: COUGH COMPARISON: May 2014 single-view chest TECHNIQUE: PA and lateral views of the chest were obtained. FINDINGS: The lungs are clear. Heart size is normal and central vasculature is within normal limit s. No pleural effusion or pneumothorax seen. No acute bony finding noted. No aortic abnormality. No significant change comparison. IMPRESSION: No acute cardiopulmonary process.
== END 2019-01-20 00:41 | disposition home or self-care (01) ==
LOC: ER 21:49
DX: J20.9 Acute bronchitis, unspecified (principal); F17.290 Nicotine dependence, other tobacco product, uncomplicated
CPT/HCPCS: 71046; 81003; 87070; 87081; 87804; 99284

== ENCOUNTER 2019-06-06 03:14 | Emergency (ER) | payer SELFPAY ==
[2019-06-06] MEDS ORDERED: IBUPROFEN 400 MG TAB ONE (03:45)
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
[2019-06-06 04:35] VITALS: BP 113/70; TEMP 98.7; O2SAT 100
--- NOTE | 2019-06-06 06:15 | RAD REPORT ---
EXAM DESCRIPTION: RAD - Hand Right 3 View - 06/06/2019 3:40 am CLINICAL HISTORY: Right hand pain status post injury FINDINGS: A mildly displaced fracture involves the proximal diaphysis of the fifth metacarpal with a ngulation at the fracture site. No dislocation
== END 2019-06-06 04:24 | disposition home or self-care (01) ==
LOC: ER 03:14
PROC: 2W3JX1Z Immobilization of Right Finger using Splint (ICD-10-PCS; principal; 2019-06-06)
DX: S62.336A Displaced fracture of neck of fifth metacarpal bone, right hand, initial encounter for closed fracture (principal); W22.8XXA Striking against or struck by other objects, initial encounter; Y93.89 Activity, other specified; Y92.009 Unspecified place in unspecified non-institutional (private) residence as the place of occurrence of the external cause; F17.210 Nicotine dependence, cigarettes, uncomplicated
CPT/HCPCS: 99284

== ENCOUNTER 2019-06-19 11:46 | Inpatient (IN) | payer SELFPAY ==
[2019-06-19] MEDS ORDERED: MORPHINE 2 MG/ML SYR ONE ×2 (12:38→14:40)
[2019-06-19] MEDS ORDERED: ONDANSETRON 4 MG/2 ML VIAL ONE ×2 (12:38→14:40)
[2019-06-19 12:55] LABS: Basophils % 0.6 % (0-1.3); Hematocrit 37.6 % (36.0-45.0); Lymphocytes % 51.2 % (15.3-44.8); MPV 7.6 fL (7.6-11.3); RBC Red Blood Cell Count 4.68 M/uL (3.86-4.86)
[2019-06-19 13:16] LABS: BUN Blood Urea Nitrogen 6 mg/dL (7-18); Bicarbonate 27 mmol/L (21-32); Glucose Level 96 mg/dL (74-106); Potassium 3.7 mmol/L (3.5-5.1); Sodium Level 140 mmol/L (136-145)
[2019-06-19 13:17] LABS: ALT/SGPT 230 U/L (12-78); AST/SGOT 143 U/L (15-37); Alkaline Phosphatase 107 U/L (45-117); Bilirubin Direct 0.2 mg/dL (0-0.2); Bilirubin Total 0.6 mg/dL (0.2-1.0); Lipase 63 U/L (73-393); Protein, Total 7.7 g/dL (6.4-8.2)
[2019-06-19 13:19] LABS: Blood Morphology Comment NOT SEEN (NOT SEEN); Platelet Estimate ADEQ; Urine White Blood Cell Casts OK
[2019-06-19] MEDS ORDERED: NA CHLORIDE 0.9% 2,000 ML ONE (14:04)
--- NOTE | 2019-06-19 14:47 | RAD REPORT ---
EXAM DESCRIPTION: US - Abdomen Exam Limited - 06/19/2019 2:33 pm CLINICAL HISTORY: Abdominal pain. COMPARISON: None. FINDINGS: The gallbladder wall is not thickened. A gallstone is not seen. The biliary tree is normal caliber. IMPRESSION: Unremarkable gallbladder ultrasound.
--- NOTE | 2019-06-19 15:14 | RAD REPORT ---
EXAM DESCRIPTION: CT - Abdomen Pelvis W Contrast - 06/19/2019 3:00 pm CLINICAL HISTORY: Abdominal pain. COMPARISON: 2017 TECHNIQUE: Computed axial tomography of the abdomen and pelvis was obtained. 100 cc Isovue-300 is ad ministered intravenously. Oral contrast was given. All CT scans are performed using dose optimization technique as appropriate and may include automated exposure control or mA/KV adjustment according to patient size. FINDINGS: The liver, pancreas, adrenals and left kidney appear unremarkable. A 25 millimeter right renal cyst . Borderline enlargement of the spleen There is no evidence of diverticulitis 4.5 centimeter left ovarian cyst with a small amount of free fluid The appendix is borderline enlarged containing fluid. No stranding within adjacent fat seen. The appe ndix extends posteriorly and inferiorly from the cecum. It lies within the lower right pelvis IMPRESSION: 4.5 centimeter left ovarian cyst with a small amount of free fluid Borderline enlargement of the appendix is equivocal for early appendicitis
--- NOTE | 2019-06-19 16:24 | ER ---
Nurse's Notes [facility] Name: Orin Jackman Age: 23 yrs Sex: Female : 1995 Arrival Date: 06/19/2019 Time: 11:49 Bed 13 Private MD: Diagnosis: Abdominal tenderness-borderline dilated appendix ;Vomiting;Urinary tract infection, site not specified;Unspecified ovarian cysts Presentation: 06/18 11:50 Chief complaint: Lower abdominal pain and N/V x 3 days. Tolerating fluids. Last BM was hb yesterday. Coronavirus screen: Proceed with normal triage. Ebola Screen: No symptoms or risks identified at this time. Initial Sepsis Screen: Does the patient meet any 2 criteria? HR > 90 bpm. No. Patient's initial sepsis screen is negative. Does the patient have a suspected source of infection? No. Patient's initial sepsis screen is negative. Risk Assessment: Do you want to hurt yourself or someone else? Patient reports no desire to harm self or others. Onset of symptoms was June 15, 2019. 11:50 Method Of Arrival: Ambulatory 11:50 Acuity: ROB 3 hb Triage Assessment: 18:51 General: Appears uncomfortable, Behavior is calm, cooperative. 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 - Social history:: Smoking status: Patient reports the use of cigarette tobacco products, smokes one-half pack cigarettes per day. - Family history:: not pertinent. Screenin:51 Abuse screen: Denies threats or abuse. Nutritional screening: No deficits noted. Tuberculosis screening: No symptoms or risk factors identified. Fall Risk None identified. Assessment: 12:30 General: Appears uncomfortable, Behavior is calm, cooperative, appropriate for age. Pain: Complains of pain in right lower quadrant and left lower quadrant Pain does not radiate. Pain currently is 7 out of 10 on a pain scale. Quality of pain is described as tender, gnawing, Pain began gradually. Neuro: Level of Consciousness is awake, alert, Oriented to person, place, time. Cardiovascular: Heart tones S1 S2 Capillary refill < 3 seconds Patient's skin is warm and dry. Respiratory: Breath sounds are clear bilaterally. GI: Abdomen is distended, Last BM was June 18, 2019. Bowel sounds present X 4 quads. Abdomen is tender to palpation in right lower quadrant and left lower quadrant Guarding noted Reports constipation, nausea, vomiting, since 3 days. : No signs and/or symptoms were reported regarding the genitourinary system. EENT: No signs and/or symptoms were reported regarding the EENT system. Derm: No signs and/or symptoms reported regarding the dermatologic system. Musculoskeletal: Reports fracture to right wrist/arm. Arm is splinted. She states that she has not been able to get an appt with an ortho MD yet at this time. 13:30 Reassessment: Patient appears in no apparent distress at this time. Patient and/or family updated on plan of care and expected duration. Pain level reassessed. Patient is alert, oriented x 3, equal unlabored respirations, skin warm/dry/pink. Patient states symptoms have improved. 14:40 Reassessment: Pt with c/o pain and nausea at this time. MD notified and received order to repeat prior medication. administered Morphine and zofran. No other needs voiced at this time. 15:40 Reassessment: Medication effective. Pt resting at this time. No needs voiced. 17:00 Reassessment: Pt states that she is having increased nausea. Notfied MD and received order for phenergan. Phenergan administered IVP. Pt tolerated well. No other needs voiced. 18:00 Reassessment: Patient and/or family updated on plan of care and expected duration. Pain ah level reassessed. Phenergan effective. Pt states that nausea has subsided and she is able to rest at this time. Awaiting room assignment. 19:37 Reassessment: Attempted to call report to 2nd floor. 19:54 Reassessment: Report called to [facility] on 2nd floor. Vital Signs: 11:50 BP 132 / 95; Pulse 119; Resp 16; Temp 98.1; Pulse Ox 100% on R/A; Weight 49.9 kg; hb Height 5 ft. 3 in. (160.02 cm); Pain 7/10; 11:50 Body Mass Index 19.49 (49.90 kg, 160.02 cm) hb ED Course: 11:49 Patient arrived in ED. as 11:51 Triage completed. hb 11:52 Arm band placed on. hb 11:56 Norbert Cobb MD is Attending Physician. gavino 12:02 Cara Stout, RN is Primary Nurse. ah 12:30 Inserted saline lock: 20 gauge in left antecubital area, using aseptic technique. ah 14:17 pt cousins phone number when pt needs a ride home. [phone]. bd 14:18 Abdomen In Process Unspecified. EDMS 14:34 US Abdomen Limited In Process Unspecified. EDMS 16:21 Zhane Smith MD is Hospitalizing Provider. gavino 18:57 Patient has correct armband on for positive identification. Placed in gown. Bed in low ah position. Call light in reach. Side rails up X 1. 20:00 Initial lab(s) drawn, by me, sent to lab. a SST and Green top have been sent to lab sg prior to admission as ordered. 20:00 No provider procedures requiring assistance completed. Patient admitted, IV remains in ah place. Administered Medications: 12:51 Drug: morphine 2 mg Route: IVP; Site: left antecubital; ah 13:51 Follow up: Response: No adverse reaction ah 12:51 Drug: Zofran (Ondansetron) 4 mg Route: IVP; Site: left antecubital; ah 13:51 Follow up: Response: No adverse reaction ah 14:30 Drug: NS 0.9% 1000 ml Route: IV; Rate: 1 bolus; Site: left antecubital; ah 14:40 Drug: Zofran (Ondansetron) 4 mg Route: IVP; Site: left antecubital; ah 15:40 Follow up: Response: No adverse reaction; Nausea is decreased ah 14:40 Drug: morphine 2 mg Route: IVP; Site: left antecubital; ah 15:45 Follow up: Response: No adverse reaction ah 16:45 Drug: NS 0.9% 1000 ml Route: IV; Rate: 125 ml/hr; Site: left antecubital; ah 16:50 Drug: Flagyl 500 mg Volume: 100 ml; Route: IVPB; Rate: 200 ml/hr; Infused Over: 30 ah mins; Site: left antecubital; 17:20 Follow up: Response: No adverse reaction; IV Status: Completed infusion 17:00 Drug: Phenergan 12.5 mg Route: IVP; Site: left antecubital; 18:00 Follow up: Response: No adverse reaction; Nausea is decreased 18:04 Drug: Cipro 400 mg Volume: 200 ml; Route: IVPB; Infused Over: 60 mins; Site: left antecubital; Outcome: 16:24 Decision to Hospitalize by Provider. [facility] 20:00 Admitted to Med/surg accompanied by [facility], via wheelchair, room 229, with chart, Report called to [facility] on 2nd floor 20:00 Condition: stable 20:00 Discharge instructions given to patient, Instructed on the need for admit, Demonstrated understanding of instructions. 20:18 Patient left the ED. sg Signatures: Dispatcher [employer] EDMS Elvira Marshall Steven, RN RN sg Anderson, Corey, MD MD cha Martinez, Amelia as Baxter, Heather, RN RN Cara Stout RN RN Baljinder Thomas RN RN ll1 Corrections: (The following items were deleted from the chart) 12:41 12:35 BP 125 / 82; Pulse 61bpm; Resp 17bpm; Pulse Ox 97%; Pain 7/10; ll1 ll1 12:41 12:10 General: Appears uncomfortable, Behavior is calm, cooperative, ll1 ll1 12:41 12:10 Pain: Complains of pain in Upper abdomen Pain currently is 9 out of 10 on a pain ll1 scale. Quality of pain is described as aching, ll1 12:41 12:10 Neuro: No deficits noted. ll1 ll1 12:41 12:10 Cardiovascular: No deficits noted. ll1 ll1 12:41 12:10 Respiratory: No deficits noted. ll1 ll1 12:41 12:10 GI: Abdomen is flat, Bowel sounds present X 4 quads. Abd is soft Abdomen is ll1 tender to palpation in right upper quadrant and left upper quadrant Reports upper abdominal pain, nausea, vomiting, ll1 12:41 12:37 Abuse screen: Denies threats or abuse. ll1 ll1 12:41 12:37 Nutritional screening: No deficits noted. ll1 ll1 12:41 12:37 Tuberculosis screening: No symptoms or risk factors identified. ll1 ll1 12:41 12:37 Fall Risk IV access (20 points). Ambulatory Aid- None/Bed Rest/Nurse Assist (0 ll1 pts). Gait- Weak (10 pts.). Total Aragon Fall Scale indicates High Risk Score (45 or more points). Fall prevention measures have been instituted. Side Rails Up X 2 Frequent Obs/Assessments Occuring As available patient and family educated on Fall Prevention Program and Strategies. [facility] 12:42 12:10 Patient has correct armband on for positive identification. Bed in low position. [facility] Call light in reach. Side rails up X 1. [facility] 12:42 12:38 No provider procedures requiring assistance completed. [place] [id number] 12:42 12:38 Patient admitted, IV remains in place. [place] [id number] 12:42 12:38 Discharged to day surgery [place] [id number] 12:42 12:38 Condition: stable [place] [id number] 12:42 12:38 Instructed on the need for admit, [place] [id number] 22:05 12:30 Musculoskeletal: No signs and/or symptoms reported regarding the musculoskeletal ah system. 22:09 14:00 Reassessment: Patient appears in no apparent distress at this time. Patient ah and/or family updated on plan of care and expected duration. Pain level reassessed. Patient is alert, oriented x 3, equal unlabored respirations, skin warm/dry/pink. Patient states symptoms have improved.
--- NOTE | 2019-06-19 16:24 | EDPHYS ---
Physician Documentation [facility] Name: Orin Jackman Age: 23 yrs Sex: Female : 1995 Arrival Date: 06/19/2019 Time: 11:49 Bed 13 Private MD: ED Physician Norbert Cobb HPI: 06/18 12:22 This 23 yrs old Female presents to ER via Ambulatory with complaints of gavino Constipation, Vomiting. 12:22 The patient presents to the emergency department with nausea, vomiting, diarrhea, gavino abdominal pain, of the right lower quadrant and left lower quadrant. Onset: The symptoms/episode began/occurred 3 day(s) ago. Possible causes: unknown. The symptoms are aggravated by nothing. The symptoms are alleviated by nothing. Associated signs and symptoms: The patient has no apparent associated signs or symptoms. Severity of symptoms: At their worst the symptoms were moderate in the emergency department the symptoms are unchanged. The patient has not experienced similar symptoms in the past. 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 - Social history:: Smoking status: Patient reports the use of cigarette tobacco products, smokes one-half pack cigarettes per day. - Family history:: not pertinent. ROS: 12:22 Constitutional: Negative for fever, chills, and weight loss, Eyes: Negative for injury, gavino pain, redness, and discharge, ENT: Negative for injury, pain, and discharge, Neck: Negative for injury, pain, and swelling, Cardiovascular: Negative for chest pain, palpitations, and edema, Respiratory: Negative for shortness of breath, cough, wheezing, and pleuritic chest pain, Back: Negative for injury and pain, : Negative for injury, bleeding, discharge, and swelling, MS/Extremity: Negative for injury and deformity, Skin: Negative for injury, rash, and discoloration, Neuro: Negative for headache, weakness, numbness, tingling, and seizure, Psych: Negative for depression, anxiety, suicide ideation, homicidal ideation, and hallucinations, Allergy/Immunology: Negative for hives, rash, and allergies, Endocrine: Negative for neck swelling, polydipsia, polyuria, polyphagia, and marked weight changes, Hematologic/Lymphatic: Negative for swollen nodes, abnormal bleeding, and unusual bruising. 12:22 Abdomen/GI: Positive for abdominal pain, of the right lower quadrant and left lower quadrant. Exam: 12:22 Constitutional: This is a well developed, well nourished patient who is awake, alert, gavino and in no acute distress. Head/Face: Normocephalic, atraumatic. Eyes: Pupils equal round and reactive to light, extra-ocular motions intact. Lids and lashes normal. Conjunctiva and sclera are non-icteric and not injected. Cornea within normal limits. Periorbital areas with no swelling, redness, or edema. ENT: Nares patent. No nasal discharge, no septal abnormalities noted. Tympanic membranes are normal and external auditory canals are clear. Oropharynx with no redness, swelling, or masses, exudates, or evidence of obstruction, uvula midline. Mucous membranes moist. Neck: Trachea midline, no thyromegaly or masses palpated, and no cervical lymphadenopathy. Supple, full range of motion without nuchal rigidity, or vertebral point tenderness. No Meningismus. Chest/axilla: Normal chest wall appearance and motion. Nontender with no deformity. No lesions are appreciated. Cardiovascular: Regular rate and rhythm with a normal S1 and S2. No gallops, murmurs, or rubs. Normal PMI, no JVD. No pulse deficits. Respiratory: Lungs have equal breath sounds bilaterally, clear to auscultation and percussion. No rales, rhonchi or wheezes noted. No increased work of breathing, no retractions or nasal flaring. Back: No spinal tenderness. No costovertebral tenderness. Full range of motion. Female : Normal external genitalia. Skin: Warm, dry with normal turgor. Normal color with no rashes, no lesions, and no evidence of cellulitis. MS/ Extremity: Pulses equal, no cyanosis. Neurovascular intact. Full, normal range of motion. Neuro: Awake and alert, GCS 15, oriented to person, place, time, and situation. Cranial nerves II-XII grossly intact. Motor strength 5/5 in all extremities. Sensory grossly intact. Cerebellar exam normal. Normal gait. Psych: Awake, alert, with orientation to person, place and time. Behavior, mood, and affect are within normal limits. 12:22 Abdomen/GI: Inspection: abdomen appears normal, Bowel sounds: normal, Palpation: moderate abdominal tenderness, in the right lower quadrant and left lower quadrant, Liver: no appreciated palpable abnormalities, Hernia: not appreciated. Vital Signs: 11:50 BP 132 / 95; Pulse 119; Resp 16; Temp 98.1; Pulse Ox 100% on R/A; Weight 49.9 kg; hb Height 5 ft. 3 in. (160.02 cm); Pain 7/10; 11:50 Body Mass Index 19.49 (49.90 kg, 160.02 cm) hb MDM: 11:56 Patient medically screened. [facility] 13:10 Data reviewed: vital signs, nurses notes, lab test result(s), radiologic studies, CT gavino scan. 06/18 12:21 Order name: Basic Metabolic Panel; Complete Time: 13:55 [facility] 06/18 12:21 Order name: CBC with Diff; Complete Time: 13:55 [facility] 06/18 12:21 Order name: Creatinine for Radiology; Complete Time: 13:55 [facility] 06/18 12:21 Order name: Hepatic Function; Complete Time: 13:55 [facility] 06/18 12:21 Order name: Lipase; Complete Time: 13:55 [facility] 06/18 12:57 Order name: CBC Smear Scan; Complete Time: 13:55 [facility] 06/18 16:24 Order name: Urine Dipstick--Ancillary (enter results) 06/18 16:25 Order name: Test, Serum [facility] 06/18 16:25 Order name: Urine Culture [facility] 06/18 17:42 Order name: CBC with Automated Diff [facility] 06/18 17:42 Order name: Comprehensive Metabolic Panel [facility] 06/18 17:42 Order name: Comprehensive Metabolic Panel [facility] 06/18 17:42 Order name: Magnesium [facility] 06/18 17:42 Order name: Magnesium [facility] 06/18 13:53 Order name: Abdomen ; Complete Time: 16:18 [facility] 06/18 13:56 Order name: US Abdomen Limited; Complete Time: 16:18 [facility] 06/18 15:18 Order name: EKG Electrocardiogram; Complete Time: 17:38 [facility] 06/18 17:42 Order name: Magnesium [facility] 06/18 17:42 Order name: Magnesium [facility] 06/18 12:21 Order name: IV Saline Lock; Complete Time: 17:38 [facility] 06/18 12:21 Order name: Labs collected and sent; Complete Time: 17:38 [facility] 06/18 12:21 Order name: Urine Dipstick-Ancillary (obtain specimen); Complete Time: 17:38 [facility] 06/18 12:21 Order name: Urine Test (obtain specimen); Complete Time: 22:14 [facility] 06/18 17:42 Order name: CONS Pharmacy Consult [facility] 06/18 17:42 Order name: CONS Physician Consult [facility] 06/18 17:42 Order name: NPO [facility] Administered Medications: 12:51 Drug: morphine 2 mg Route: IVP; Site: left antecubital; 13:51 Follow up: Response: No adverse reaction ah 12:51 Drug: Zofran (Ondansetron) 4 mg Route: IVP; Site: left antecubital; 13:51 Follow up: Response: No adverse reaction ah 14:30 Drug: NS 0.9% 1000 ml Route: IV; Rate: 1 bolus; Site: left antecubital; ah 14:40 Drug: Zofran (Ondansetron) 4 mg Route: IVP; Site: left antecubital; ah 15:40 Follow up: Response: No adverse reaction; Nausea is decreased ah 14:40 Drug: morphine 2 mg Route: IVP; Site: left antecubital; ah 15:45 Follow up: Response: No adverse reaction ah 16:45 Drug: NS 0.9% 1000 ml Route: IV; Rate: 125 ml/hr; Site: left antecubital; ah 16:50 Drug: Flagyl 500 mg Volume: 100 ml; Route: IVPB; Rate: 200 ml/hr; Infused Over: 30 ah mins; Site: left antecubital; 17:20 Follow up: Response: No adverse reaction; IV Status: Completed infusion ah 17:00 Drug: Phenergan 12.5 mg Route: IVP; Site: left antecubital; 18:00 Follow up: Response: No adverse reaction; Nausea is decreased 18:04 Drug: Cipro 400 mg Volume: 200 ml; Route: IVPB; Infused Over: 60 mins; Site: left ah antecubital; Disposition: 06/19/19 16:24 Hospitalization ordered by Zhane Smith for Observation. Preliminary diagnosis are Abdominal tenderness - borderline dilated appendix , Vomiting, Urinary tract infection, site not specified, Unspecified ovarian cysts. - Bed requested for Telemetry/MedSurg (observation). - Status is Observation. sg - Condition is Stable. - Problem is new. - Symptoms have improved. Signatures: Dispatcher [employer] EDMS Elvira Marshall bd Sridhar Gray RN RN Norbert Callejas MD MD cha Baxter, Heather, CELIO PICKENS Cara Stout RN RN Corrections: (The following items were deleted from the chart) 13:52 12:22 Abdomen Pelvis W Con+CT.RAD.BRZ ordered. EDMS EDMS 13:53 13:53 Abdomen ordered. [facility] EDMS 19:02 16:24 Hospitalization Ordered by Zhane Smith MD for Observation. Preliminary bd diagnosis is Abdominal tenderness - borderline dilated appendix ; Vomiting; Urinary tract infection, site not specified; Unspecified ovarian cysts. Bed requested for Telemetry/MedSurg (observation). Status is Observation. Condition is Stable. Problem is new. Symptoms have improved. [facility] 20:18 19:02 06/19/2019 16:24 Hospitalization Ordered by Zhane Smith MD for Observation. sg Preliminary diagnosis is Abdominal tenderness - borderline dilated appendix ; Vomiting; Urinary tract infection, site not specified; Unspecified ovarian cysts. Bed requested for Telemetry/MedSurg (observation). Status is Observation. Condition is Stable. Problem is new. Symptoms have improved. bd
[2019-06-19] MEDS ORDERED: CIPROFLOXACIN 400mg IV 400 MG/200 ML BAG IV ONE (16:40)
[2019-06-19] MEDS ORDERED: METRONIDAZOLE 500mg IVPB 500 MG/100 ML BAG IV ONE (16:40)
[2019-06-19] MEDS ORDERED: PROMETHAZINE INJ 25 MG/ML AMP ONE (16:58)
[2019-06-19] MEDS ORDERED: HYDRALAZINE HCL 20 MG/ML VIAL IV PRN (17:36)
[2019-06-19] MEDS: PIPER/TAZO/NS 3.375gm 3.375 GM/100 ML BAG IVPB SCH (18:00)
[2019-06-19] MEDS: ENOXAPARIN 40 MG/0.4 ML SQ SCH (18:30)
[2019-06-19] MEDS: MORPHINE 2 MG/ML SYR IV PRN (20:39)
[2019-06-19] MEDS: ONDANSETRON 4 MG/2 ML VIAL IV PRN (20:40)
[2019-06-19] MEDS: FAMOTIDINE 20 MG/2 ML VIAL IV SCH (20:41)
[2019-06-19] MEDS: D5 0.9 NS 1,000 ML with POTASSIUM CL 10 MEQ IV SCH ×2 (20:42)
[2019-06-19 21:00] LABS: Urine Blood NEGATIVE (NEG); Urine Glucose NEGATIVE (NEG); Urine Protein NEGATIVE (NEG); Urine Specific Gravity <1.005 (1.005-1.030); Urine pH 5.5 (5.0-7.0)
--- NOTE | 2019-06-19 21:27 | HP ---
Date of Admission: 06/19/2019 Presenting Complaint: Low abdominal pain, nausea and vomiting. History Of Present Illness: rody Ozuna 23-year-old female with past medical histo ry of recurrent lower abdominal cramps, she states she be told she may have vessels, irrit able bowel syndrome. Patient has not been able to see GI. She has been having recurrent lower abdom inal cramps since the last 1 year. She describes a family history of irritable bowel disease in the father and grandparents. She presented today because of recurrent symptoms since the last 1 week, bu t worse in the last 3 days, became associated with nausea and vomiting. She takes an jukf-kls-rovvyh r anti-inflammatory medication from her step-mom, which did not relieve the symptoms. She states she had a bowel movement yesterday, but denies any diarrhea. Today, she developed onset of nausea. She denies any fever or chills. She denies any dysuria or flank pain or nocturia. Her pain is more in the lower abdominal quadrant, and nonradiating. She rates pain at about 8 to 10/10. Past Medical History: Significant for chronic lower abdominal pain of unworked up etiology. Home Medications: None, but occasional [id number] tramadol and [id number]-jww-[id number] anti-inflammat ory medication, she is unsure of name. Allergies: NO KNOWN DRUG ALLERGY. Family History: Significant for irritable bowel disease in the father, maternal, her mom young from a motor vehicle accident. She denies any family history of abdominal cancer or ulcerative colit is. Social History: Patient resides in the community. She is unemployed, . Admits to tobVibeSec o use. Smokes about a pack per day. Denies any alcohol or illicit drug use. Review of Systems: All systems reviewed x14 were negative except as mentioned above. Physical Examination: Current vitals: Blood pressure of 132/95, pulse of 119, improved down to 96, respiratory rate of 17, temperature 98.1, O2 saturation 100 on room air. General: Small built young female, not in any distress. HEENT: Head is atraumatic, normocephalic. Pupils equal, reactive to light. Anicteric. [place] conjun ctivae. Moist oral mucosa. Neck: No JVD. No carotid bruit. Respiratory: Good air entry. No crepitation. Cardiovascular: S1, S2. Rate and rhythm regular. GI: Abdomen full, soft. Bowel sounds positive in all 4 quadrants. Tenderness over the suprapubic, extending to the left lower quadrant with equivocal rebound on the left lower quadrant, but no tender ness or rebound on the right lower quadrant. No suprapubic distention. RECTAL: Deferred. EXTREMITIES: No pedal edema. No calf tenderness. NEURO: Patient is alert, oriented. Cranial nerves 2 through 12 grossly intact. Laboratory Data: WBC 5.8, platelets 228, neutrophils 36. Sodium 140, potassium 3.7, bicarb 27, crea tinine 0.7, T-bilirubin of 0.6, alkaline phosphatase 107, AST/ALT elevated at 143/220. Serum pregnan cy pending. Lipase 63. Urinalysis is pending. Abdominal ultrasound shows unremarkable gallbladder. CT of the abdomen and pelvis is consistent with 4.5 cm left ovarian cyst with small amount of free fluid, borderline enlargement of the appendix, equivocal for early appendicitis. Impression: 1.Possible early appendicitis. 2.Unclear lower abdominal pain. Plan: We will admit patient to observation. We will start patient on empirical antibiotics with Zos yn and Flagyl. Present area of abdominal pain does not seem to be consistent with appendicitis, but we will consult Surgery, who has been consulted by the ED to come and evaluate the patient. We do p. r.n. pain medication for now. We will start patient on gentle IV fluid hydration and follow. If pat ient's symptoms improving in a.m., then we will consider a plan for discharge. We will obtain urinal ysis and follow for possible rule out urinary tract infection, which seems more consistent with patie nt's pain. We will do subcutaneous heparin for DVT prophylaxis. Disposition: Possible hospital stay for 24-48 hours. We will keep the patient n.p.o. for now. EO/MODL Voice ID: [id number]
[2019-06-19 22:12] VITALS: BMI 18.3
[2019-06-19] MEDS ORDERED: PIPERACIL/TAZO 3.375 GM VIAL IV ONE (22:43)
[2019-06-19] MEDS ORDERED: NA CHLORIDE 0.9% 200 ML ONE (23:48)
[2019-06-20] MEDS: MORPHINE 2 MG/ML SYR IV PRN ×2 (00:49→06:25)
[2019-06-20 05:59] LABS: Bilirubin Total 0.7 mg/dL (0.2-1.0); Potassium 3.5 mmol/L (3.5-5.1); Protein, Total 5.7 g/dL (6.4-8.2)
[2019-06-20] MEDS: PIPER/TAZO/NS 3.375gm 3.375 GM/100 ML BAG IVPB SCH ×4 (06:00→18:02)
[2019-06-20 06:03] LABS: Absolute Lymphocytes (CBC) 3.6 K/uL (0.7-4.9); Basophils % 0.4 % (0-1.3); Hematocrit 28.9 % (36.0-45.0); Lymphocytes % 60.5 % (15.3-44.8); MPV 7.6 fL (7.6-11.3); RBC Red Blood Cell Count 3.58 M/uL (3.86-4.86)
[2019-06-20] MEDS: D5 0.9 NS 1,000 ML with POTASSIUM CL 10 MEQ IV SCH ×4 (08:24→16:05)
[2019-06-20 08:26] LABS: Blood Morphology Comment NOT SEEN (NOT SEEN); Platelet Estimate ADEQ
[2019-06-20] MEDS: ENOXAPARIN 40 MG/0.4 ML SQ SCH (08:50)
[2019-06-20] MEDS ORDERED: INFLUENZA VACCINE (for 3y+) 0.5 ML DOSE IMVAC ONE (09:00)
[2019-06-20] MEDS: NICOTINE 21 MG/PAT TD SCH (09:00)
[2019-06-20] MEDS: FAMOTIDINE 20 MG/2 ML VIAL IV SCH ×2 (09:07→20:17)
[2019-06-20] MEDS ORDERED: MORPHINE 4 MG/ML SYR IV PRN (10:35)
--- NOTE | 2019-06-20 11:28 | PREOPCON ---
Date of Consultation: 06/19/2019 Reason For Consultation: Abdominal pain. History Of Present Illness: Patient is a 23-year-old female who comes in with diffuse abdominal rosmery n mostly in the lower abdomen worsening over the last 3 days. She has had this pain off and on for a long time but she states that the pain is both in the right lower quadrant and the left lower quadra nt. She has some issue of constipation but occasional bright red blood secondary to hemorrhoids. No dysuria or hematuria. No sore throat, runny nose, cough, headaches, or dizziness. Menstrual cycle i s within normal limits. No fever or chills. Does have some anorexia. Review of Systems: Otherwise unremarkable. Past Medical History: Possible history of IBS and broken coccyx. Surgical History: Negative. Allergies: NO ALLERGIES. Social History: She does smoke. Occasional alcohol. Physical Examination: Vital Signs: Stable. She is afebrile. She is awake, alert, oriented x3. Head and Neck: Cranial nerves 2 through 12 are grossly within normal limits. No neck masses. No JV D. Throat clear. Neck is supple. Chest: Clear. Heart: S1 and S2. Abdomen: Soft, nondistended. Positive bowel sounds. Positive Rovsing sign. There is tenderness pr esent with rebound in the right lower quadrant. There is tenderness in the left lower quadrant as we ll. Extremities: Adequately perfused. Nontender. Neuro: Nonfocal. Laboratory Data: White count is reviewed and essentially within normal limits. H and H were 12.4 an d 37.6 yesterday, this morning are 9.7 and 28.9. Chemistry reviewed. Her AST and ALT are elevated a t 143 and 230 yesterday, today are [address] of the abdomen and pelvis and ultrasound reviewed with the radiologist. Ultrasound is unremarkable. There is no gallstone. CT of the abdomen and pel vis showed a 4.5 cm left ovarian cyst with a small amount of free fluid and borderline enlargement of the appendix is equivocal for early appendicitis. However, I have seen the radiologist morning, he feels that most likely it is early appendicitis. Assessment: Early acute appendicitis and left ovarian cyst, symptomatic. Recommendations: We will proceed with diagnostic laparoscopy, lap appy, possible left ovarian cystec gildardo. Patient understands the risks, benefits, and alternatives and agrees to procedure. Discussed the case with Dr. Robin who will be consulted to assist regarding the ovarian cyst issues, she purnima l be on IV antibiotics. Patient understands the risks, benefits, and alternatives and agrees to proc edure. Plan of care discussed with Dr. Lazar. CARMEN/LAMONT Voice ID: [id number] Report ID: [id number]
[2019-06-20] MEDS ORDERED: Ringers Lactate 1,000 ML IV ONE (12:21)
[2019-06-20] MEDS ORDERED: ONDANSETRON 4 MG/2 ML VIAL ONE ×2 (12:32→13:20)
--- NOTE | 2019-06-20 12:44 | CON ---
Patient is scheduled to have an appendectomy today. She also is noted to have a left ovarian cyst ab out 4 cm. She has not used any control so it is probably a hemorrhagic corpus luteum cyst or s imple cyst. We discussed that when Dr. Brownlee does her appendectomy I will be there advising him and if the ovary on the left, the cyst looks like it is on the way to draining itself, we would just leav e it alone otherwise we will probably make a small fenestration and drain the cyst. She knows that i f there was any bleeding though that became unmanageable we would have to remove the ovary and russ ervin she would rather not have her ovary removed but I told her that the chance for that even if we ma ke a small fenestration in the cyst wall, is very unlikely. We will not do anything major such as vince ahmadi the major window, would just make the smallest aperture possible to drain the cyst since she is actually having more discomfort on her left side where the cyst is and on the right where the appendi x is. Full discussion. HARLEY/LAMONT Voice ID: [id number] Report ID: [id number]
--- NOTE | 2019-06-20 12:45 | P.PN ---
Subjective Date of Service: 06/20/19 Patient is complaining of persistent lower abdominal pain. She has not vomited. She has been afebrile. She denies diarrhea. Physical Examination - Vital Signs Temperature: 98.5 F Blood Pressure: 100/58 Pulse: 61 Respirations: 16 Pulse Ox (%): 97 - Physical Exam General: Alert, In no apparent distress, Oriented x3 HEENT: Mucous membr. moist/pink Neck: Supple Respiratory: Clear to auscultation bilaterally, Normal air movement Cardiovascular: No edema, Normal S1 S2 Gastrointestinal: Normal bowel sounds, Non-distended, Tenderness (Moderate tenderness in the lower abdomen.) Musculoskeletal: No swelling Integumentary: No rashes - Studies Laboratory Data (last 24 hrs) 06/19/19 12:40: Creatinine 0.77 06/19/19 12:40: WBC 5.8, Hgb 12.4, Hct 37.6, Plt Count 228 06/19/19 12:40: Sodium 140, Potassium 3.7, BUN 6 L, Creatinine 0.77, Glucose 96, Total Bilirubin 0.6, AST 143 H, ALT 230 H, Alkaline Phosphatase 107, Lipase 63 L Assessment And Plan - Current Problems (Diagnosis) (1) Abdominal pain Current Visit: Yes Status: Acute (2) Ovarian cyst Current Visit: Yes Status: Acute (3) Elevated LFTs Current Visit: Yes Status: Acute (4) Anemia Current Visit: Yes Status: Acute - Plan Patient seen by surgery-Dr. Brownlee. Dr. Brownlee is planning diagnostic laparoscopy and appendectomy based on findings . Gynecology -Dr. Robin to be involved for recommendation regarding the ovarian cyst. Continue IV antibiotics NPO Pain management and supportive care as needed. IV hydration. Screen for hepatitis. Cause of anemia is unknown. This could be dilutional given accompanying decrease in platelet count, total protein and albumin. Monitor CBC and LFT.
[2019-06-20] MEDS ORDERED: MIDAZOLAM HCL 2 MG/2 ML INJ ONE (12:59)
[2019-06-20] MEDS ORDERED: FENTANYL CITR 100 MCG/2 ML ONE ×2 (13:19→13:55)
[2019-06-20] MEDS ORDERED: dexAMETHasone 10 MG/ML VIAL ONE (13:20)
[2019-06-20] MEDS ORDERED: propofoL 200 MG/20 ML VIAL IV ONE (13:20)
[2019-06-20] MEDS ORDERED: ROCURONIUM 50 MG/5 ML VIAL IV ONE (13:20)
[2019-06-20] MEDS ORDERED: LIDOCAINE 2% MPF 5 ML VIAL ONE (13:20)
[2019-06-20] MEDS ORDERED: GLYCOPYRROLATE 0.2 MG/ML SYR ONE (14:19)
[2019-06-20] MEDS ORDERED: NEOSTIGMINE 1 MG/ML -5 ML ONE (14:19)
[2019-06-20] MEDS ORDERED: KETOROLAC 30 MG/ML INJ ONE (14:19)
--- NOTE | 2019-06-20 14:19 | P.OP ---
Hydraulic Riveter: Dr. Tamela Soto Preoperative diagnosis: Acute Appy, Abdominal pain, Left ovarian cyst Postoperative diagnosis: same Primary procedure: Diag Lap, Lap Appy, Left Ovarian Cyst Aspiration (DR. Rapp) Anesthesia: General Estimated blood loss: min Specimen: Appy Findings: as above Complications: None Transferred to: Recovery Room Condition: Good
[2019-06-20] MEDS ORDERED: HYDROMORPHONE HCL 1 MG/ML INJ IV PRN (14:52)
[2019-06-20] MEDS: HYDROMORPHONE HCL 2 MG/ML inj ONE ×4 (15:00→15:20)
[2019-06-20] MEDS: HYDROMORPHONE HCL 1 MG/ML INJ ONE ×2 (15:25→15:30)
--- NOTE | 2019-06-20 15:54 | EKG ---
Test Date: 2019-06-19 Test Time: 13:05:38 [place] Floor: JADEN MEASUREMENT RESULTS: Intervals: Rate: 83 IA: 124 QRSD: 72 QT: 366 QTc: 430 Callaway: P: 47 IA: 124 QRS: 73 T: 43 INTERPRETIVE STATEMENTS: Normal sinus rhythm Normal ECG No previous ECG available for comparison Electronically Signed On 06-20-19 15:50:41 CDT by Angel Green
[2019-06-20] MEDS: ONDANSETRON 4 MG/2 ML VIAL IV PRN ×2 (16:23→21:15)
[2019-06-20] MEDS: HYDROCODONE/APAP 7.5/325 MG TAB PO PRN (20:17)
--- NOTE | 2019-06-20 21:39 | OP ---
Surgeon: Tyrone Rapp MD Patient had appendectomy by Dr. Brownlee, I was called for surgical consultation. She had what appeared to be a hemorrhagic corpus luteum cyst on the left, was intact, very thin wall, a small thin-walled nonvascular area was selected and a small window was created at that point. Serosanguineous fluid wa s evacuated. No bleeding was seen. I think that is all that needs to be done. We will put her on b irth control in the future to try to reduce the chance for ovulation and cyst formation. She was nahed re of this before surgery. She wanted minimal intervention on this ovarian cyst and I think that a s mall little window that was created should be enough to resolve this current situation. HARLEY/LAMONT Voice ID: [id number] Report ID: [id number]
--- NOTE | 2019-06-20 23:24 | OP ---
Date of Procedure: 06/20/2019 Surgeon: Harsh Brownlee MD Photograph Enlarger: LUDA Galloway. Preoperative Diagnoses: Abdominal pain, acute appendicitis, left ovarian cyst. Postoperative Diagnoses: Abdominal pain, acute appendicitis, left ovarian cyst. Procedure: Diagnostic laparoscopy, laparoscopic appendectomy by me, and cyst aspiration of the left ovary by Dr. Rapp. Co-surgeon: Tyrone Rapp M.D. Estimated Blood Loss: Minimal. Specimen: Appendix. Findings: As above. Anesthesia: General. Complications: None. Disposition: Patient tolerated the procedure in stable condition, taken to Recovery in good general condition. Procedure In Detail: Patient was brought to the OR and placed in supine position. General anesthesi a was begun. Patient was prepped and draped in usual sterile fashion. Marcaine 0.5% was infiltrated locally. A #15 blade was used to make a 1 cm infraumbilical midline incision. Subcutaneous tissue was divided. Fascia was identified and divided. A #1 Vicryl stay suture was placed. Peritoneal cav ity was entered with sharp and blunt dissection. 12 mm trocar was placed into the peritoneal cavity under direct vision. Pneumoperitoneum was established and two 5 trocars were placed, 1 in the suprap ubic region and 1 in the left lower quadrant. Laparoscopy revealed a very long appendix of the dista l half of it dilated and injected consistent with early acute appendicitis. Base of the appendix and mesoappendix were clearly identified. Endo-VANESSA stapling device was used to divide and retrieved via EndoCatch bag through the umbilicus and pneumoperitoneum reestablished and diagnostic laparoscopy re vealed normal right ovary and tube and normal uterus; normal intestine; normal liver, gallbladder and peritoneal surface. The left ovary however was enlarged. Dr. Rapp aspirated this cyst fluid and t his was suctioned out and there was no evidence of bleeding or bowel injury was seen. Subsequently, all trocars were removed under direct vision. Stay sutures were tied to each other across the fascia l defect. Subcutaneous wounds were irrigated. Bleeding controlled with cautery. 3-0 chromic was us ed to approximate the subcutaneous tissue and close the skin. Sterile dressing was applied. Patient was awakened and taken to Recovery in good general condition. /MODL Voice ID: [id number] Report ID: [id number]
[2019-06-21] MEDS: PIPER/TAZO/NS 3.375gm 3.375 GM/100 ML BAG IVPB SCH ×2 (01:02→09:25)
[2019-06-21] MEDS: HYDROCODONE/APAP 7.5/325 MG TAB PO PRN ×2 (01:21→09:20)
[2019-06-21] MEDS: ONDANSETRON 4 MG/2 ML VIAL IV PRN ×2 (02:26→10:15)
[2019-06-21 05:11] LABS: Absolute Lymphocytes (CBC) 2.4 K/uL (0.7-4.9); Basophils % 0.2 % (0-1.3); Hematocrit 28.6 % (36.0-45.0); MPV 7.8 fL (7.6-11.3); RBC Red Blood Cell Count 3.55 M/uL (3.86-4.86)
[2019-06-21 05:12] LABS: Lymphocytes % 34.9 % (15.3-44.8)
[2019-06-21 05:24] LABS: ALT/SGPT 124 U/L (12-78); AST/SGOT 52 U/L (15-37); Alkaline Phosphatase 76 U/L (45-117); BUN Blood Urea Nitrogen 6 mg/dL (7-18); Bicarbonate 24 mmol/L (21-32); Bilirubin Total 0.5 mg/dL (0.2-1.0); Glucose Level 185 mg/dL (74-106); Magnesium 2.1 mg/dL (1.8-2.4); Protein, Total 6.2 g/dL (6.4-8.2); Sodium Level 141 mmol/L (136-145)
[2019-06-21 08:43] VITALS: O2SAT 95
--- NOTE | 2019-06-21 08:47 | PN ---
Eating breakfast this morning. Says she feels good. Discussion about the cyst on her left ovary, pr obably hemorrhagic corpus luteum. In any event, she feels much better. She wants to start on vagina l ring for contraception. She knows this was should help prevent ovulation and therefore possibly pr event cyst formation in the future, although that is not a certainty. She will call the office in a week or so. We will wait until she has good week or more postop, before we begin any hormonal control that could cause increased chance for blood clots in the legs. Full discussion with the mason ent. HARLEY/LAMONT Voice ID: [id number] Report ID: [id number]
[2019-06-21] MEDS: FAMOTIDINE 20 MG/2 ML VIAL IV SCH (09:21)
[2019-06-21] MEDS: NICOTINE 21 MG/PAT TD SCH (09:21)
--- NOTE | 2019-06-21 09:50 | PN ---
Date of Progress Note: 06/21/2019 Subjective: Patient is awake, alert, no complaint. Objective: Vital Signs: Stable, afebrile. Abdomen: Benign. Laboratory Data: Reviewed. Assessment: Status post diagnostic laparoscopy, laparoscopic appendectomy, and drainage of left ovar shaan cyst. Recommendation: Cleared by Surgery for discharge. Discharge instructions given. Follow up in my of [facility] in 1 week. /MODL Voice ID: [id number] Report ID: [id number]
[2019-06-21 10:26] VITALS: BP 100/62
[2019-06-21 10:30] VITALS: TEMP 97.8
--- NOTE | 2019-06-21 19:05 | P.DS ---
Admission Date: 06/19/19 Discharge Date: 06/21/19 Disposition: ROUTINE DISCHARGE Discharge Condition: GOOD Reason for Admission: Abdominal pain Consultations: General Surgery Dr. Brownlee Gynecology-Dr. Rapp - Problems (1) Abdominal pain Status: Acute (2) Ovarian cyst Status: Acute (3) Elevated LFTs Status: Acute (4) Anemia Status: Acute Brief History of Present Illness: 23-year-old woman with a history of recurrent abdominal pain in the past presented to the ED with a complaint of another episode of abdominal pain of severe intensity. CT abdomen and pelvis done in the ED report possible early appendicitis and left ovarian cyst. General surgery was consult and patient admitted for further management. Hospital Course: Patient admitted to the medical floor and started on empiric IV antibiotics. She was seen and evaluated by Dr. Brownlee. Patient underwent diagnostic laparoscopy and found to have evidence of early appendicitis and left ovarian cysts. Appendectomy was performed. Gynecology-Dr. Rapp also aspirated fluid from the ovarian cyst. Patient was monitored overnight with no event. Noted elevated LFT which trended down during the hospital stay. CT abdomen and pelvis reported unremarkable liver. Hepatitis profile has been obtained and the result is pending to be followed. Patient is deemed clinically stable for discharge today by Surgery. Her hepatitis profile need to be followed. Vital Signs/Physical Exam: Temp Pulse Resp BP Pulse Ox 97.8 F 66 15 100/62 98 06/21/19 08:00 06/21/19 09:18 06/21/19 09:20 06/21/19 09:18 06/21/19 09:20 Laboratory Data at Discharge: WBC 6.9 K/uL (4.3-10.9) D 06/21/19 04:50 Hgb 9.5 g/dL (12.0-15.0) L 06/21/19 04:50 Hct 28.6 % (36.0-45.0) L 06/21/19 04:50 Plt Count 193 K/uL (152-406) 06/21/19 04:50 Sodium 141 mmol/L (136-145) 06/21/19 04:50 Potassium 4.0 mmol/L (3.5-5.1) 06/21/19 04:50 BUN 6 mg/dL (7-18) L 06/21/19 04:50 Creatinine 0.72 mg/dL (0.55-1.3) 06/21/19 04:50 Glucose 185 mg/dL (74-106) H 06/21/19 04:50 Magnesium Cancelled 06/21/19 17:45 Total Bilirubin 0.5 mg/dL (0.2-1.0) 06/21/19 04:50 AST 52 U/L (15-37) H 06/21/19 04:50 ALT 124 U/L (12-78) H 06/21/19 04:50 Alkaline Phosphatase 76 U/L (45-117) 06/21/19 04:50 Lipase 63 U/L (73-393) L 06/19/19 12:40 Home Medications: NK [No Home Meds] 06/19/19 Patient Discharge Instructions: Remove outer dressing in am and shower. Keep steri-strips on at all times Diet: Regular Activity: No lifting more than 10 lbs Followup: Oj Rapp MD [ACTIVE - CAN ADMIT] - 1-2 Weeks (Please call to make an appointment. ) Harsh Brownlee MD [ACTIVE - CAN ADMIT] - 1 Week (Please call to make an appointment. ) Time spent managing pt's care (in minutes): 35
[2019-06-24 20:34] LABS: HBsAG Nonreactive (Nonreactive)
== END 2019-06-21 10:59 | disposition home or self-care (01) | DRG 343 ==
LOC: ER 11:46 → ERHOLD 17:40 → OBSVTOIN 17:40 → 2ND 20:00
PROVIDERS: ADMIT Internal Medicine; ATTEND Internal Medicine
PROC: 0DTJ4ZZ Resection of Appendix, Percutaneous Endoscopic Approach (ICD-10-PCS; principal; 2019-06-20 10:30)
PROC: 0U914ZX Drainage of Left Ovary, Percutaneous Endoscopic Approach, Diagnostic (ICD-10-PCS; 2019-06-20 10:30)
DX: K35.80 Unspecified acute appendicitis (principal); D64.9 Anemia, unspecified; F17.200 Nicotine dependence, unspecified, uncomplicated; N83.202 Unspecified ovarian cyst, left side; R79.89 Other specified abnormal findings of blood chemistry; Z56.0 Unemployment, unspecified
CPT/HCPCS: 36415; 74177; 76705; 80048; 80053; 80074; 80076; 81003; 83690; 83735; 84703; 85025; 86706; 87086; 87088; 88304; 93005; 96365; 96375; 99285; J0744; J1100; J1170; J2250; J2270; J2405; J2543; J2550; J2704; J2710; J3010; J7030; J7042; J7120; Q9967

== ENCOUNTER 2019-09-11 03:32 | Emergency (ER) | payer OTHER, SELFPAY ==
[2019-09-11 04:21] LABS: Protime INR 1.03
[2019-09-11 04:33] LABS: Absolute Lymphocytes (CBC) 2.2 K/uL (0.7-4.9); Basophils % 0.5 % (0-1.3); Hematocrit 34.5 % (36.0-45.0); Lymphocytes % 42.5 % (15.3-44.8); MPV 7.8 fL (7.6-11.3); RBC Red Blood Cell Count 4.19 M/uL (3.86-4.86)
[2019-09-11 04:38] LABS: ALT/SGPT 18 U/L (12-78); AST/SGOT 18 U/L (15-37); Albumin 3.8 g/dL (3.4-5.0); Alkaline Phosphatase 49 U/L (45-117); BUN Blood Urea Nitrogen 5 mg/dL (7-18); Bicarbonate 23 mmol/L (21-32); Bilirubin Direct < 0.1 mg/dL (0-0.2); Bilirubin Total 0.2 mg/dL (0.2-1.0); Glucose Level 95 mg/dL (74-106); Potassium 3.4 mmol/L (3.5-5.1); Protein, Total 7.1 g/dL (6.4-8.2); Sodium Level 144 mmol/L (136-145)
[2019-09-11 05:53] LABS: Urine Blood NEGATIVE (NEG); Urine Glucose NEGATIVE (NEG); Urine Protein NEGATIVE (NEG); Urine Specific Gravity 1.025 (1.005-1.030)
[2019-09-11 06:03] LABS: Barbiturates NEGATIVE (NEGATIVE); Benzodiazepines NEGATIVE (NEGATIVE); Cocaine NEGATIVE (NEGATIVE); METHAMPHETAM NEGATIVE (NEGATIVE); Methadone NEGATIVE (NEGATIVE); Opiates NEGATIVE (NEGATIVE); Phencyclidine NEGATIVE (NEGATIVE); THC Cannibis NEGATIVE (NEGATIVE)
--- NOTE | 2019-09-11 06:52 | EDPHYS ---
Physician Documentation [facility] Name: Orin Jackman Age: 23 yrs Sex: Female : 1995 Arrival Date: 09/11/2019 Time: 03:33 Bed 15 Private MD: ED Physician Lawrence Cannon HPI: 09/10 03:57 This 23 yrs old Female presents to ER via EMS with complaints of Suicidal mh7 Ideation. 03:57 The patient presents to the emergency department with depression, over unknown mh7 circumstances. Onset: The symptoms/episode began/occurred last night. Past psychiatric history: Prior diagnosis: depression, Psychiatric medications include: none, Primary psychiatric physician: the patient does not have a primary psychiatric physician, the patient has not had a prior suicide gesture, the patient does not have a previous inpatient psychiatric history, the patient's last psychiatric treatment was 6 year(s) ago. Associated signs and symptoms: Pertinent negatives: abdominal pain, anxiety, chest pain, chills, delusions, fever, hallucinations, headache, homicidal ideation, nausea, night sweats, palpitations, paranoia, shortness of breath, substance abuse, suicide ideation, tremor, vomiting. Patient states that she has been feeling depressed. States that she called a hot line today then police came to her home and she was brought to the ED. She states that she took Ecstasy and Suboxone tonight. She denies any suicidal or homicidal ideation, auditory or visual hallucinations.. CLEAT FEEDER: 03:48 LMP 08/21/2019 lp1 Historical: - Allergies: 03:47 No Known Allergies; lp1 - Home Meds: 03:47 None [Active]; lp1 - PMHx: 03:47 "Family HX of IBS"; broken coccyx; Depression; lp1 - PSHx: 03:47 Appendectomy; lp1 - Immunization history:: Adult Immunizations up to date. - Social history:: Smoking status: Patient reports the use of cigarette tobacco products, smokes one-half pack cigarettes per day, Patient uses street drugs, methylenedioxymethamphetamine. ROS: 03:57 Constitutional: Negative for fever, chills, and weight loss, Eyes: Negative for injury, mh7 pain, redness, and discharge, ENT: Negative for injury, pain, and discharge, Neck: Negative for injury, pain, and swelling, Cardiovascular: Negative for chest pain, palpitations, and edema, Respiratory: Negative for shortness of breath, cough, wheezing, and pleuritic chest pain, Abdomen/GI: Negative for abdominal pain, nausea, vomiting, diarrhea, and constipation, Back: Negative for injury and pain, : Negative for injury, bleeding, discharge, and swelling, MS/Extremity: Negative for injury and deformity, Skin: Negative for injury, rash, and discoloration, Neuro: Negative for headache, weakness, numbness, tingling, and seizure, Allergy/Immunology: Negative for hives, rash, and allergies, Endocrine: Negative for neck swelling, polydipsia, polyuria, polyphagia, and marked weight changes, Hematologic/Lymphatic: Negative for swollen nodes, abnormal bleeding, and unusual bruising. Exam: 03:57 Constitutional: This is a well developed, well nourished patient who is awake, alert, mh7 and in no acute distress. Head/Face: Normocephalic, atraumatic. Eyes: Pupils equal round and reactive to light, extra-ocular motions intact. Lids and lashes normal. Conjunctiva and sclera are non-icteric and not injected. Cornea within normal limits. Periorbital areas with no swelling, redness, or edema. Neck: Trachea midline, no thyromegaly or masses palpated, and no cervical lymphadenopathy. Supple, full range of motion without nuchal rigidity, or vertebral point tenderness. No Meningismus. Chest/axilla: Normal chest wall appearance and motion. Nontender with no deformity. No lesions are appreciated. Cardiovascular: Regular rate and rhythm with a normal S1 and S2. No gallops, murmurs, or rubs. Normal PMI, no JVD. No pulse deficits. Respiratory: Lungs have equal breath sounds bilaterally, clear to auscultation and percussion. No rales, rhonchi or wheezes noted. No increased work of breathing, no retractions or nasal flaring. Abdomen/GI: Soft, non-tender, with normal bowel sounds. No distension or tympany. No guarding or rebound. No evidence of tenderness throughout. Back: No spinal tenderness. No costovertebral tenderness. Full range of motion. Skin: Warm, dry with normal turgor. Normal color with no rashes, no lesions, and no evidence of cellulitis. MS/ Extremity: Pulses equal, no cyanosis. Neurovascular intact. Full, normal range of motion. Neuro: Awake and alert, GCS 15, oriented to person, place, time, and situation. Cranial nerves II-XII grossly intact. Motor strength 5/5 in all extremities. Sensory grossly intact. Cerebellar exam normal. Normal gait. 03:57 Psych: Behavior/mood is depressed, Affect is flat, Oriented to person, place, time, Patient has no thoughts/intents to harm self or others. Judgement / Insight is normal. Memory is normal. Delusions/hallucinations are not present. 05:01 ECG was reviewed by the Attending Physician. [facility] Vital Signs: 03:45 BP 127 / 79; Pulse 93; Resp 16; Temp 98.5(O); Pulse Ox 100% on R/A; Weight 47.63 kg lp1 (R); Height 5 ft. 3 in. (160.02 cm); Pain 0/10; 08:34 BP 117 / 74; Pulse 62; Resp 15; Temp 97.9(O); Pulse Ox 100% on R/A; mh5 03:45 Body Mass Index 18.60 (47.63 kg, 160.02 cm) lp1 MDM: 03:56 Patient medically screened. [facility] 06:37 Differential diagnosis: drug withdrawal. depression, Suicidal ideation. Data reviewed: [facility] vital signs, nurses notes, EMS record, lab test result(s), CBC, drug level(s), electrolytes, urinalysis, urine drug screen, UPT: EKG. Data interpreted: field producer: rate is 90 beats/min, rhythm is normal sinus rhythm, regular, Interpretation: normal rate, normal rhythm, Pulse oximetry: on room air is 100 %. Interpretation: normal. Counseling: I had a detailed discussion with the patient and/or guardian regarding:. 09/10 03:42 Order name: Acetaminophen; Complete Time: 09/10 03:42 Order name: Basic Metabolic Panel; Complete Time: 09/10 03:42 Order name: CBC with Diff; Complete Time: 09/10 03:42 Order name: ETOH Level; Complete Time: 09/10 03:42 Order name: Hepatic Function; Complete Time: 09/10 03:42 Order name: PT-INR; Complete Time: wh 09/10 03:42 Order name: Ptt, Activated; Complete Time: wh 09/10 03:42 Order name: Salicylate; Complete Time: 09/10 03:42 Order name: Urine Drug Screen; Complete Time: 06:24 wh 09/10 03:42 Order name: EKG; Complete Time: 03:43 09/10 03:42 Order name: EKG - Nurse/Tech; Complete Time: :50 wh 09/10 05:47 Order name: Urine --Ancillary (enter results); Complete Time: 06:24 tt3 09/10 05:47 Order name: Urine Dipstick--Ancillary (enter results); Complete Time: 06:24 tt3 09/10 07:26 Order name: Diet Finger Food; Complete Time: 07:27 mh5 09/10 03:42 Order name: IV Saline Lock; Complete Time: :09/10 03:42 Order name: Labs collected and sent; Complete Time: 09/10 03:42 Order name: Urine Dipstick-Ancillary (obtain specimen); Complete Time: 05:37 wh 09/10 05:23 Order name: Urine Test (obtain specimen); Complete Time: 05:37 mh7 EC:01 Rate is 90 beats/min. Rhythm is regular, Normal Sinus Rhythm. QRS [place] is Normal. [place] mh7 interval is normal. QRS interval is normal. QT interval is normal. No Q waves. T waves are Normal. No ST changes noted. Clinical impression: Normal ECG. Administered Medications: No medications were administered Disposition: 09/11/19 06:52 Transfer ordered to [facility]. Diagnosis are Depression, Suicidal Ideation. - Reason for transfer: Higher level of care. - Accepting physician is Dr. Freed. - Condition is Stable. - Problem is an acute exacerbation. - Symptoms are unchanged. Signatures: Dispatcher [employer] EDDE Lawrence Cannon MD MD kdr Pena, Laura, RN RN lp1 Gabe Alfaro Brian, RN RN bp Beto Matt MD MD 7 Corrections: (The following items were deleted from the chart) 09:59 06:52 09/11/2019 06:52 Transfer ordered to [facility]. Diagnosis is Depression; kdr Suicidal Ideation. Reason for transfer: Higher level of care. Accepting physician is Psychiatry. Condition is Stable. Problem is an acute exacerbation. Symptoms are unchanged. mh7 11:14 09:59 09/11/2019 06:52 Transfer ordered to [facility]. Diagnosis is Depression; bp Suicidal Ideation. Reason for transfer: Higher level of care. Accepting physician is Dr. Freed. Condition is Stable. Problem is an acute exacerbation. Symptoms are unchanged. kdr
--- NOTE | 2019-09-11 06:52 | ER ---
Nurse's Notes [facility] Name: Orin Jackman Age: 23 yrs Sex: Female : 1995 Arrival Date: 09/11/2019 Time: 03:33 Bed 15 Private MD: Diagnosis: Depression;Suicidal Ideation Presentation: 09/10 03:45 Chief complaint: EMS states: Called for patient with suicidal ideations; patient lp1 reports taking Ecstasy x1 pill, Suboxone x1 pill, and drinking whiskey tonight;. Coronavirus screen: Proceed with normal triage. Ebola Screen: No symptoms or risks identified at this time. Initial Sepsis Screen: Does the patient meet any 2 criteria? No. Patient's initial sepsis screen is negative. Does the patient have a suspected source of infection? No. Patient's initial sepsis screen is negative. Risk Assessment: Do you want to hurt yourself or someone else? Patient reports desire/thoughts of hurting themselves or someone else. Provider notified. Onset of symptoms was September 11, 2019. Care prior to arrival: Medication(s) given: Normal saline infusion, 250 ml IV initiated. 20 GA, in the right antecubital area. 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 - Social history:: Smoking status: Patient reports the use of cigarette tobacco products, smokes one-half pack cigarettes per day, Patient uses street drugs, methylenedioxymethamphetamine. Screenin:48 Abuse screen: Denies threats or abuse. Denies injuries from another. Nutritional lp1 screening: No deficits noted. Tuberculosis screening: No symptoms or risk factors identified. 04:00 Fall Risk None identified. wh Assessment: 04:00 General: Appears in no apparent distress. Behavior is calm, cooperative. Pain: Denies wh pain. Neuro: Level of Consciousness is awake, alert, obeys commands, Oriented to person, place, time, situation, Appropriate for age. Cardiovascular: Rhythm is regular. Respiratory: Airway is patent Respiratory effort is even, unlabored, Respiratory pattern is regular, symmetrical. GI: Abdomen is flat, non-distended. : No signs and/or symptoms were reported regarding the genitourinary system. EENT: No signs and/or symptoms were reported regarding the EENT system. Derm: Skin is intact, is healthy with good turgor, Skin is pink, warm \\T\\ dry. normal. Musculoskeletal: Circulation, motion, and sensation intact. 05:35 Reassessment: Patient appears in no apparent distress at this time. No changes from wh previously documented assessment. Patient and/or family updated on plan of care and expected duration. Pain level reassessed. Patient is alert, oriented x 3, equal unlabored respirations, skin warm/dry/pink. Pt talking to [facility] for assessment. 05:39 Reassessment: Patient using [employer] to talk with Joel [facility]. lp1 07:00 Reassessment: RECD REPORT FROM GABE PICKENS. 23YO CALLED 911 WITH SI AND SUICIDAL bp GESTURE. PT INGESTED ETOH, SUBOXONE AND MDMA SUICIDAL GESTURE. [facility] C/S COMPLETED, INPATIENT RECOMMENDED. TRANSFER INITIATED, BUT NO PLACEMENT AVAILABLE AT THIS TIME. 10:40 Reassessment: REPORT TO OTILIA PICKENS FOR [facility]. bp 11:00 Reassessment: [facility] TRANSFER SIGNED AND WITNESSED. bp 11:12 Reassessment: EMS AT B/S FOR TRANSPORT. BELONGINGS SENT WITH PT. bp Psych: 03:45 Subjective: Patient's mood is sad, Delusions are denied, Hallucinations are denied lp1 Having thoughts of suicide. Objective: Patient is using poor eye contact, Speech is normal, Affect is appropriate. Interventions: Removed personal items and placed in bag. Patient placed in hospital gown. Searched person for dangerous items. Suicide Risk Assessment: Sad Person Scale: Sex of patient: Female: Score 0 points. Age of patient: Score 1 point if patient 15-34. Depression: Score 1 point if signs of depression are present. Previous Attempt: Score 0 point if patient has not previously attempted suicide. Substance Abuse: Score 1 point if patient abuses alcohol or drugs. Rational Thinking: Score 1 point if patient is lacking rational thinking. Social Support: Score 1 point if social support is lacking and/or unavailable. Organized Plan: Score 0 if patient did not have an organized plan in place. Relationship: Score 1 point if patient is , , , or for a single male Chronic Sickness: Score 0 point if patient does not have a chronic illness, debilitating, or severe disorder. TOTAL POINTS: If total points are 5-6, proposed clinical action is to strongly consider hospitalization, depending upon confidence in the follow-up arrangement. Implement suicide precautions. Safety Checks: Personal items have been removed. Door is open. No visitors are present at this time. 03:45 Patient uses of Whiskey. lp1 04:00 Commitment: Patient will be a voluntary commitment. Vital Signs: 03:45 BP 127 / 79; Pulse 93; Resp 16; Temp 98.5(O); Pulse Ox 100% on R/A; Weight 47.63 kg lp1 (R); Height 5 ft. 3 in. (160.02 cm); Pain 0/10; 08:34 BP 117 / 74; Pulse 62; Resp 15; Temp 97.9(O); Pulse Ox 100% on R/A; mh5 03:45 Body Mass Index 18.60 (47.63 kg, 160.02 cm) lp1 ED Course: 03:33 Patient arrived in ED. cl3 03:35 Beto Matt MD is Attending Physician. mh7 03:42 Gabe Alfaro is Primary Nurse. 03:45 Patient has correct armband on for positive identification. Placed in gown. Valuables lp1 inventory done. Locked in safe. See valuables checklist. Sitter at bedside. 03:47 Triage completed. lp1 03:47 Arm band placed on right wrist. lp1 04:00 Maintain EMS IV. Dressing intact. Good blood return noted. Site clean \\T\\ dry. wh 04:[address] [facility] regarding patients case. Spoke with Yoel and he stated he would tt3 pass the information on to the screener. 05:29 Joel from [facility] called regarding pt case. tt3 05:36 Joel from [facility] was connected via iPad to talk to the patient. Jamila Quezada RN, tt3 connected the call and walked over to the patients room. 06:36 Face sheet and patient chart was faxed to [facility] per Joel' directions using fax tt3 number . Joel spoke with Dr. Matt as well after speaking with the patient. 07:11 Attending Physician role handed off by Beto Matt MD [facility] 07:11 Lawrence Cannon MD is Attending Physician. kdr 08:35 Diet: Patient given a regular meal tray. [facility] 08:36 Primary Nurse role handed off by Gabe Alfaro bp 08:36 Juancarlos Rojas, RN is Primary Nurse. bp 11:08 IV discontinued, Pressure dressing applied. mh5 11:14 No provider procedures requiring assistance completed. bp Administered Medications: No medications were administered Outcome: 06:52 ER care complete, transfer ordered by MD. [facility] 11:13 Transferred by ground EMS to [facility], Transfer form completed. bp 11:13 Condition: stable 11:13 Instructed on the need for transfer. 11:14 Patient left the ED. bp Signatures: Lawrence Cannon MD MD [facility] Jamila Quezada RN RN lp1 Cleopatra Wiggins 5 Gabe Alfaro Juancarlos Rojas, RN RN Lavelle Thomas cl3 Beto Matt MD MD [facility] Jono Campos tt3
[2019-09-11 11:21] VITALS: O2SAT 100
[2019-09-11 11:22] VITALS: BP 117/74; TEMP 97.9
--- NOTE | 2019-09-12 07:19 | EKG ---
Test Date: 2019-09-11 Test Time: 03:46:30 Invoice Classification Clerk: PHILL MEASUREMENT RESULTS: Intervals: Rate: 90 AL: 130 QRSD: 74 QT: 358 QTc: 437 Crawford: P: 51 AL: 130 QRS: 68 T: 38 INTERPRETIVE STATEMENTS: Normal sinus rhythm Normal ECG Compared to ECG 06/19/2019 13:05:38 No significant changes Electronically Signed On 09-12-19 07:15:57 CDT by Angel Green
== END 2019-09-11 11:14 | disposition short-term general hospital (02) ==
LOC: ER 03:32
DX: R45.851 Suicidal ideations (principal); F17.210 Nicotine dependence, cigarettes, uncomplicated
CPT/HCPCS: 36415; 80048; 80076; 80307; 80320; 80329; 81003; 81025; 85025; 85610; 85730; 93005; 99285

== ENCOUNTER 2021-03-15 05:33 | Emergency (ER) | payer OTHER ==
--- OUTSIDE RECORDS SUMMARY | 2021-03-15 05:36 | XMS REPORT | Continuity of Care Document ---
:1995 Author Organization [facility] t Address [address] [place] [address] Care Team Providers Name Role Phone Marciano Rodriguez Primary Care Physician Jhoana Regalado MD Attending Clinician Marciano DUKE Attending Clinician Unavailable Jhoana REGALADO Attending Clinician Unavailable Moshe Sumner Attending Clinician Unavailable Visit, Nurse Attending Clinician Unavailable Marciano Rodriguez Attending Clinician Marciano CARY Attending Clinician Unavailable Lab, Fam Pob I Attending Clinician Unavailable Brandi Arevalo Attending Clinician Doctor Unassigned, Name Attending Clinician Unavailable LAURY Attending Clinician Unavailable DO TAYLOR Attending Clinician Unavailable Physician, Primary or Family Admitting Clinician Unavailcris VAZQUEZ Admitting Clinician Unavailable MD JUAN C ZUNIGA Admitting Clinician Unavailable KAYLA Admitting Clinician Unavailable Payers Payer Name Policy Type Policy Number Effective Date Expiration Date S fabien W-[id number] 2020 00:00:00 [place] [id number] 2016 00:00:00 Advance Directives Directive Decision Effective Termination Comments Source Date Date Healthcare Agents on N/A Univ ersity FileNameRelationshipHealthcare of [place] Agent Medical RelationshipCommunicationBeach[facility] StakitGrandparentHealth Care [phone] (Mobile)Jessica ChildressFirst Alternate Health Care [phone] (Mobile) Problems Condition Condition Condition Status Onset Resolution Last Treating Co mments Source Name Details Category Date Date Treatment Clinician Date Screen for Screen for Disease Active 2019-03 U nivers STD STD 1-10 ity of ([place]ually [place] transmit[place] 00 Me dical d disease) d disease) Br anch Maternal Maternal Disease Active Unive rs varicella, varicella, 7-13 [place] [address] [place] [address] Tobacco Tobacco Disease Active Univers use in use in 7-12 [place]y of , , [place] antepartum antepartum 00 Me dical , first , first Branch trimester trimester Disease Active Uni vers with with 7-12 ity of history of history of [place] , , 00 Medi bharati unspecifie unspecifie Br anch d d trimester trimester High risk High risk Disease Active Uni vers , , 7-12 it y of ante[place] History of History of Disease Active U nivers marijuana marijuana 7-12 ity of use use 00:00: [address] Allergies, Adverse Reactions, Alerts Allergy Allergy Status Severity Reaction(s) Onset Inactive Treating Comm ents Source Name Type Date Date Clinician No Known DA Active U 2020-03 [facility]ie 04-05 [place] [facility] NO KNOWN Drug Active Univers ALLERGIE Class ity of S [facility] Social History Social Habit Start Date Stop Date Quantity Comments Source History SDOH University o f Alcohol Comment [place] Med ical Branch Exposure to Not sure University of SARS-CoV-2 (event) [facility] Alcohol intake 2020-02-05 2020-02-05 .57 /d University of 00:00:00 00:00:00 [facility] Tobacco use and 2020-01-22 2020-01-22 Never used Universit y of exposure 00:00:00 00:00:00 [facility] Cigarettes smoked 2020-01-22 2020-01-22 Univers ity of current (pack per 00:00:00 00:00:00 [facility] day) - Reported Branch Cigarette 2020-01-22 2020-01-22 University of pack-years 00:00:00 00:00:00 [facility] Branch History SDOH 2020-01-22 2020-01-22 4 University o f Alcohol [facility] 2020-01-22 2020-01-22 2 University o f Alcohol Std Drinks 00:00:00 00:00:00 [facility] Branch History SDOH 2020-01-22 2020-01-22 99 University o f Alcohol Binge 00:00:00 00:00:00 [facility] [place] Branch Tobacco Comment 2016-09-22 2016-09-22 pack per day Univers ity of 00:00:00 00:00:00 [facility] History of tobacco 2013-09-08 2016-09-08 Cigarette Smoker University of use 00:00:00 00:00:00 [facility] Sex Ass[birth year] At [birth year] Universit y of 00:00:00 00:00:00 [facility] Smoking Status Start Date Stop Date Source Current every day 2020-01-22 00:00:00 [facility] smoker [facility] Former smoker 2018-08-13 00:00:00 2018-08-13 00:00:00 [facility] Medications Ordered Filled Start Stop Current Ordering Indication Dosage Frequency Signature Comments Components Source Medication Medication Date Date Medication? Clinician (SIG) Name Name medroxyPROG 2019-03- No [id number] 150mg Univers ESTERone 03-24 ity of (DEPO-PROVE 06:00: 04:59 [place] RA) 00 :00 Medical injection Branch 150 mg medroxyPROG 2019-2020- No [id number] 150mg Univers ESTERone 03-24- ity of (DEPO-PROVE 06:00: 04:59 [place] RA) 00 :00 Medical injection Branch 150 mg medroxyPROG 2019-2020- No [id number] 150mg Univers ESTERone 03-24- ity of (DEPO-PROVE 06:00: 04:59 [place] RA) 00 :00 Medical injection Branch 150 mg medroxyPROG 2019-03- No [id number] 150mg Univers ESTERone - 10-13 ity of (DEPO-PROVE 06:00: 04:59 [place] RA) 00 :00 Medical injection Branch 150 mg medroxyPROG 2019-03- No [id number] 150mg 150 mg, Univers ESTERone - 10-13 Intramuscu ity of (DEPO-PROVE 06:00: 04:59 lar, [place] RA) 00 :00 [id number], Medical injection 4 doses, Branch 150 mg First dose on Tue01/23/20 at 0000, Last dose on Tue10/01/20 at 0000, Routine medroxyPROG 2019-03- No [id number] 150mg Univers ESTERone -01 21-13 ity of (DEPO-PROVE 06:00: 04:59 [place] RA) 00 :00 Medical injection Branch 150 mg medroxyPROG 2019-03- No [id number] 150mg Univers ESTERone - 10-13 ity of (DEPO-PROVE 06:00: 04:59 [place] RA) 00 :00 Medical injection Branch 150 mg medroxyPROG 2019-03- No [id number] 150mg Univers ESTERone - 10-13 ity of (DEPO-PROVE 06:00: 04:59 [place] RA) 00 :00 Medical injection Branch 150 mg medroxyPROG 2019-03- No [id number] 150mg 150 mg, Univers ESTERone - 10-13 Intramuscu ity of (DEPO-PROVE 06:00: 04:59 [place], [place] RA) 00 :00 [id number], Medical injection 4 doses, Branch 150 mg First dose on Tue01/23/20 at 0000, Last dose on Tue10/01/20 at 0000, Routine ONDANSETRON 2019-03 Yes Take by Un ashley HCL (ZOFRAN 1-10 mouth. ity of ORAL) 16:47: [place] [address] Medical Branch ONDANSETRON 2019- Yes Take by Un ashley HCL (ZOFRAN 1-10 mouth. ity of ORAL) 16:47: [place] [address] Medical Branch ONDANSETRON 2019- Yes Take by Un ashley HCL (ZOFRAN 1-10 mouth. ity of ORAL) 16:47: [address] ONDANSETRON 2019- Yes Take by Un ashley HCL (ZOFRAN 1-10 mouth. ity of ORAL) 16:47: [address] ONDANSETRON 2019- Yes Take by Un ashley HCL (ZOFRAN 1-10 mouth. ity of ORAL) 16:47: [address] ONDANSETRON 2019-03 Yes Take by Un ashley HCL (ZOFRAN 1-10 mouth. ity of ORAL) 16:47: [address] ONDANSETRON 2019- Yes Take by Un ashley HCL (ZOFRAN 1-10 mouth. ity of ORAL) 16:47: [address] ONDANSETRON 2019- Yes Take by Un ashley HCL (ZOFRAN 1-10 mouth. ity of ORAL) 10:47: [address] ONDANSETRON 2017-0 Yes Take by Un ashley HCL (ZOFRAN 7-12 mouth. ity of ORAL) 20:24: [address] Vital Signs Vital Name Observation Time Observation Value Comments Source Body temperature 2020-05-08 20:34:00 36.56 Bernice [facility] Respiratory rate 2020-05-08 20:34:00 16 /min [facility] Body height 2020-05-08 20:34:00 160 cm [facility] Body weight 2020-05-08 20:34:00 42.547 kg [facility] BMI 2020-05-08 20:34:00 16.62 kg/m2 [facility] Systolic blood 2020-05-08 20:34:00 117 mm[Hg] Univer sity of pressure [facility] Diastolic blood 2020-05-08 20:34:00 79 mm[Hg] Unive rsity of pressure [facility] Heart rate 2020-05-08 20:34:00 87 /min [facility] Systolic blood 2020-02-05 21:08:00 101 mm[Hg] Univer sity of pressure [facility] Diastolic blood 2020-02-05 21:08:00 84 mm[Hg] Unive rsity of pressure [facility] Heart rate 2020-02-05 21:08:00 64 /min Universi ty of [facility] Body temperature 2020-02-05 21:08:00 36.17 Bernice [facility] ersity [facility] Respiratory rate 2020-02-05 21:08:00 16 /min [facility] ersity of [facility] Body height 2020-02-05 21:08:00 160 cm Universi ty of [facility] Body weight 2020-02-05 21:08:00 48.223 kg Universi ty of [facility] BMI 2020-02-05 21:08:00 18.83 kg/m2 Universi ty of [facility] Systolic blood 2020-01-22 16:39:00 104 mm[facility]Hg] [facility] Diastolic blood 2020-01-22 16:39:00 71 mm[Hg] Unive rsity of [facility] Heart rate 2020-01-22 16:39:00 83 /min Universi ty of [facility] Body temperature 2020-01-22 16:39:00 36.56 Bernice [facility] 2020-01-22 16:39:00 16 /min [facility] ersity [facility] Body height 2020-01-22 16:39:00 160 cm Universi ty of [facility] Body weight 2020-01-22 16:39:00 49.442 kg Universi ty of [facility] BMI 2020-01-22 16:39:00 19.31 kg/m2 Universi ty of [facility] Procedures Procedure Date / Time Performed Performing Clinician Sourmaria g e POCT TEST 2020-02-05 21:11:00 Maxine Cadet [facility] ASSIGNMENT OF BENEFITS 2020-01-22 16:15:55 Doctor Unassigned, No [facility] Encounters Start End Encounter Admission Attending Care Care Encounter Source Date/Time Date/Time Type Type Clinicians Facility Department ID 2021-02-05 2021-02-05 [place] [id number] [facility] 09:45:00 23:59:00 Encounter Juan C CORREIA'S [id number] ity MEDICAL [id number] [facility] [id number] [place] [address] Branch 2021-02-03 2021-02-05 Emergency E JESSICA DUKE [id number] [facility] 12:58:00 03:53:00 [place] 2021-02-05 2021-02-05 Outpatient R JUAN LUIS [facility] NUT [id number] Univers 00:00:00 00:00:00 JUAN C [facility] 2021-02-03 2021-02-03 Emergency EM Taisha, HCAKW MOISES [id number] [facility] 00:21:00 09:51:00 Camron [id number] [facility] 2021-02-03 2021-02-03 Emergency EM Taisha, HCAKW HCAKW [id number] [facility] 00:21:00 00:21:00 Camron 44 [facility] 2020-08-13 2020-08-13 Outpatient R [facility] [id number] Univers 08:00:00 08:00:00 [id number] [facility] 2020-07-31 2020-07-31 Outpatient R [facility] [id number] Univers 10:30:00 10:30:00 [id number] [facility] 2020-07-31 2020-07-31 Outpatient R [facility] [id number] Univers 10:30:00 10:30:00 [facility] 2020-06-18 2020-06-18 Outpatient R [facility] [id number] Univers 15:30:00 15:30:00 [id number] [facility] 2020-05-08 2020-05-08 Nurse Visit, Ang-Rmchp Nurse [facility] [id number] Univers 14:23:44 14:44:19 Visit Aundrea Cary [employer] GENERAL[id number] [id number] David as MATERNAL [id number] Med ical & CHILD [address] [place] [address] 2020-05-08 2020-05-08 Outpatient R [facility] [id number] Univers 14:30:00 14:30:00 [id number] [facility] 2020-05-08 2020-05-08 Outpatient [facility] [id number] Univers 14:30:00 14:30:00 ROSHUNDA ity o f [facility] 2020-05-06 2020-05-06 Outpatient R [facility] [id number] Univers 13:30:00 13:30:00 [id number] ity of [facility] 2020-05-06 2020-05-06 Outpatient R [facility] [id number] Univers 13:30:00 13:30:00 ity of [facility] 2020-04-29 2020-04-29 Outpatient R [facility] [id number] Univers 13:00:00 13:00:00 [id number] ity of [facility] 2020-04-29 2020-04-29 Outpatient R [facility] [id number] Univers 13:00:00 13:00:00 ity [facility] 2020-04-19 2020-04-19 Outpatient R [facility] [id number] Univers 17:20:00 17:20:00 [id number] ity [facility] 2020-04-19 2020-04-19 Outpatient R [facility] [id number] Univers 17:20:00 17:20:00 ity [facility] 2020-03-19 2020-03-19 Laboratory Lab, Adc Fam Pob I [facility] [id number]. [id number] Univers 09:20:08 09:40:08 Only Mira Eugene [facility] [id number] ity [facility] [id number] David as Professio [id number] Id dical [facility] [address] 2020-03-19 2020-03-19 Outpatient R [facility] [id number] Univers 09:15:00 09:15:00 ity of [facility] 2020-03-19 2020-03-19 Outpatient R HRASHA [facility] [id number] Univers 08:30:00 08:30:00 ROSSAGRARIONDA ity o f [facility] 2020-03-19 2020-03-19 Outpatient [facility] [id number] Univers 08:00:00 08:00:00 [id number] ity [facility] 2020-03-19 2020-03-19 Letter Doctor HOLGUIN [id number] Univers 00:00:00 00:00:00 (Out) Unassigned, ITA [id number] ity of [facility] [id number] David as [id number] [address] 2020-02-05 2020-02-05 Nurse Visit, Kirill-Rmchp Nurse [facility] [id number] .[id number] Univers 14:53:03 15:32:51 Visit CaryAundrea R [employer] GENERALIST [id number] ity of [facility] [id number] David as MATERNAL [id number] [facility] ical & CHILD [address] [place] [address] 2020-02-05 2020-02-05 Outpatient R [facility] [id number] Univers 15:00:00 15:00:00 [id number] ity [facility] 2020-02-05 2020-02-05 Outpatient R [facility] [id number] Univers 15:00:00 15:00:00 ity of [facility] 2020-01-22 2020-01-22 [facility] [id number] Univers 10:21:10 11:37:03 Visit Kerriedmond Tariq [employer] CH[employer] GENERALIST [id number] ity of [facility] [id number] David as MATERNAL [id number] [facility] & CHILD [address] [place] [address] 2020-01-22 2020-01-22 Outpatient [facility] [id number] Univers 10:15:00 10:15:00 AUNDREA ity o f [facility] 2020-01-22 2020-01-22 Outpatient [facility] [id number] Univers 10:15:00 10:15:00 KERRIHUNDA ity o f [facility] 2020-01-22 2020-01-22 Orders Doctor HOLGUIN [id number] Univers 00:00:00 00:00:00 Only Unassigned, ITA [id number] ity of [facility] [id number] David as [id number] [facility] 009 Branch 2019-09-20 2019-09-24 Inpatient [facility] [id number] [place] 00:00:00 00:00:00 REGINE [address] 2019-09-19 2019-09-19 Outpatient [facility] [id number] [place] 00:00:00 00:00:[address] 2019-09-11 2019-09-15 Inpatient [facility] [id number] [place] 00:00:00 00:00:00 REG[facility] [address] Results Test Description Test Time Test Comments Results Result Comments Source DRUGS OF ABUSE SCREEN 2021-02-03 01:37:00 Test Item Value Reference Range Interpretation Comme nts UR COCAINE (test code = COCAU) NEGATIVE NEGATIVE CUTOFF >/= 300 NG/ML UR THC CANABINOIDS QL SQN (test POSITIVE NEGATIVE A CUTOFF >/= 20 NG/ML code = CANU) UR AMPHETAMINE QL SQN (test code = POSITIVE NEGATIVE A CUTOFF >/= 500 NG/ML AMPHU) UR BARBITURATE QUAL (test code = NEGATIVE NEGATIVE CUTOFF >/= 200 NG/ML BARBQLU) UR BENZODIAZEPINE (test code = NEGATIVE NEGATIVE CUTOFF >/= 200 NG/ML BENZU) UR OPIATES QUAL (test code = NEGATIVE NEGATIVE CUTOFF >/= 300 NG/ML OPIAQLU) UR PHENCYCLIDINE (PCP) (test code NEGATIVE NEGATIVE CUTOFF >/= 25 NG/ML A Positive = PHENCU) drug screen res ult provides only a "Prelimi naryPositive" test result.If a confirmation of positive res ult is necessary, a mo respecific confirmatory te st must be ordered by the physician. Drug screens are per formed for medical (i.e. treatment)purpo ses only. Unconfirmed scr eening results must not beused for non-medical purposes (e.g e mployment testing). URINALYSIS [id number] 01:22:00 Test Item Value Reference Range Interpretation Comments UA COLOR (test code Colorless Yellow = COLU) UA APPEARANCE (test HAZY Clear code = APPU) UA GLUCOSE DIPSTICK Negative MG/DL Negative (test code = DGLUU) UA BILIRUBIN Negative Negative DIPSTICK (test code = BILU) UA KETONE DIPSTICK Negative mg/dL Negative (test code = KETU) UA SPECIFIC GRAVITY 1.001 <1.030 (test code = SGU) UA BLOOD DIPSTICK Negative Negative (test code = ZACH) UA PH DIPSTICK (test 7.0 5.0-8.0 code = DOM) UA PROTEIN DIPSTICK NEGATIVE mg/dL Negative (test code = PROU) UA UROBILINOGEN Negative mg/dL Negative [Automate d DIPSTICK (test code message] The = URO) system which generated this result transmit rocky reference range : <=1.0. The reference range was not used to interpret this result as normal/abnormal . UA NITRITE DIPSTICK Negative Negative (test code = DUTCH) UA LEUKOCYTE NEGATIVE Negative ESTERASE DIPSTICK (test code = LEUU) UA WBC (test code = 0-3 /HPF See_Comment [Automa rocky WBCU) message] The system which generated this result transmit rocky reference range : <4-5. The reference range was not used to interpret this result as normal/abnormal . UA RBC (test code = 0-3 /HPF See_Comment [Automa rocky RBCU) message] The system which generated this result transmit rocky reference range : <4-5. The reference range was not used to interpret this result as normal/abnormal . UA BACTERIA (test None /HPF None-Rare code = BACU) UA SQUAMOUS CELLS 0-5 (RARE) /HPF See_Comment [Autom ated (test code = SQU) message] T he system which generated this result transmit rocky reference range : 0-5 (RARE). The reference range was not used to interpret this result as normal/abnormal . UR HCG [id number] 01:22:00 Test Item Value Reference Range Interpretation Comments UR HCG QUAL (test code = HCGQLU) NEGATIVE NEGATIVE [id number] 01:21:00 Test Item Value Reference Range Interpretation Comments ALCOHOL (test code = 76 mg/dL <10 H ALC) ~~~~~~~~~~~~~~~ ~~~~~~~~ ~~~~~~~~~~~~~~~ ~~~~~~~~ ~~~~ RESULT S ARE TO BE USED FOR MED ICAL PURPOSES ONLY.F OR LEGAL PURPOSES THE SP ECIMEN MUST BE COLLECT ED BY A CHAINOF CUSTODY . LEGAL TESTING IS NOT PERFORMED BY [facility]. ~~~~~~~~~~~~~~~ ~~~~~~~~ ~~~~~~~~~~~~~~~ ~~~~~~~~ ~~~~ BASIC METABOLIC [id number] 01:21:00 Test Item Value Reference Range Interpretation Comments SODIUM (test code = 143 mmol/L 137-145 N NA) POTASSIUM (test code 3.6 mmol/L 3.4-5.0 N = K) CHLORIDE (test code = 104 mmol/L 98-107 N CL) CARBON DIOXIDE (test 29 mmol/L 22-30 N code = CO2) GLUCOSE (test code = 53 mg/dL 74-106 L GLU) BLOOD UREA NITROGEN 5 mg/dL 7-17 L (test code = BUN) GLOMERULAR FILTRATION 108 >60 The es timated RATE (test code = glomerular filtration GFR) rate is compute d usingpatient ra ce, age (>18), sex, and serum creatinine. If anyof the needed data elements are mi ssing the Laboratory cannot compute an mahesh mation of the glomerul ar filtration rate . CREATININE (test code 0.7 mg/dL 0.5-1.0 N = CREAT) CALCIUM (test code = 9.7 mg/dL 8.4-10.2 N CA) LIVER FUNCTION [id number] 01:21:00 Test Item Value Reference Range Interpretation Comments TOTAL PROTEIN (test 8.2 g/dL 6.3-8.2 N code = PROT) "A positive bias may occur for patients taking Eltrombopag(a b one marrow stimulan t used to treat thrombocy topenia andaplastic anemia)." ALBUMIN (test code = 4.7 g/dL 3.5-5.0 N ALB) BILIRUBIN TOTAL 0.3 mg/dL 0.2-1.3 N "A positive bias may (test code = BILT) occur for patients taking Eltrombo pag(a bone marrow sti mulant used to treat thrombocytopeni a andaplastic ane doroteo)." BILIRUBIN CONJUGATED 0 mg/dL 0-0.3 N "A posi tive bias may (test code = BILCON) occur f or patients taking Eltrombo pag(a bone marrow sti mulant used to treat thrombocytopeni a andaplastic ane doroteo)." CON JUGATED BILIRUBIN IS TH E REPLACEMENT ASS AY FOR DIRECTBILIRUBIN . BILIRUBIN 0 mg/dL 0-1.1 N UNCONJUGATED (test code = BILUNC) SGOT/AST (test code 32 U/L 15-46 N = AST) SGPT/ALT (test code 15 U/L 0-34 N = ALT) ALKALINE PHOSPHATASE 70 U/L 38-126 N (test code = ALKP) CBC W/AUTO [id number] 01:08:00 Test Item Value Reference Range Interpretation Comments WHITE BLOOD CELL (test code = 7.3 x10 3/uL 5.0-12.0 N WBC) RED BLOOD CELL (test code = 4.88 x10 6/uL 4.20-5.40 N RBC) HEMOGLOBIN (test code = HGB) 12.9 g/dL 12.0-16.0 N HEMATOCRIT (test code = HCT) 40.4 % 36.0-46.0 N MEAN CELL VOLUME (test code = 83 fL 81-99 N MCV) MEAN CELL HGB (test code = MCH) 26.4 pg 27-31 L MEAN CELL HGB CONCENTRATION 31.9 g/dL 33-37 L (test code = MCHC) RED CELL DISTRIBUTION WIDTH 14.3 % 11.5-15.5 N (test code = RDW) PLATELET COUNT (test code = 476 x10 3/uL 130-400 H PLT) MEAN PLATELET VOLUME (test code 8.6 fL 9.4-16.4 L = MPV) NEUTROPHIL % (test code = NT%) 46.3 % 43-65 N IMMATURE GRANULOCYTE % (test 0.3 % 0.0-2.0 N code = IG%) LYMPHOCYTE % (test code = LY%) 41.8 % 20.5-45.5 N MONOCYTE % (test code = MO%) 9.0 % 5.5-11.7 N EOSINOPHIL % (test code = EO%) 1.9 % 0.9-2.9 N BASOPHIL % (test code = BA%) 0.7 % 0.2-1.0 N NUCLEATED RBC % (test code = 0.0 % 0-1.0 N NRBC%) NEUTROPHIL # (test code = NT#) 3.38 x10 3/uL 2.2-4.8 N IMMATURE GRANULOCYTE # (test 0.02 x10 3/uL 0-0.03 N code = IG#) LYMPHOCYTE # (test code = LY#) 3.05 x10 3/uL 1.3-2.9 H MONOCYTE # (test code = MO#) 0.66 x10 3/uL 0.3-0.8 N EOSINOPHIL # (test code = EO#) 0.14 x10 3/uL 0.0-0.2 N BASOPHIL # (test code = BA#) 0.05 x10 3/uL 0.0-0.1 N POCT [id number] 21:11:00 Test Item Value Reference Range Interpretation Comments POCT PREG (test code = 1605) Negative On board controls acceptable with C Yes Line (test code = 3574) POCT PREG LOT # (test code = 3575) POCT PREG TEST DATE (test code = 3576) [facility] [Presence] in Respiratory specimen by CANDI with probe [id number] 02:01:53 Test Item Value Reference Range Interpretation Comments SARS-CoV-2 (COVID-19) RNA Not detected Not-Detected [Presence] in Respiratory specimen by CANDI with probe detection (test code = 34681-5)
--- NOTE | 2021-03-15 06:58 | ER ---
Nurse's Notes [facility] Name: Orin Jackman Age: 25 yrs Sex: Female : 1995 Arrival Date: 03/15/2021 Time: 05:35 Bed Waiting Private MD: Diagnosis: Presentation: 03/15 06:11 Chief complaint: Patient states: she started having severe lower left abdominal pain at bb approx 0430 denies vomiting or diarrhea has had an appy and ovarian cystectomy. Coronavirus screen: At this time, the client does not indicate any symptoms associated with coronavirus-19. Ebola Screen: No symptoms or risks identified at this time. Initial Sepsis Screen: Does the patient meet any 2 criteria? No. Patient's initial sepsis screen is negative. Does the patient have a suspected source of infection? No. Patient's initial sepsis screen is negative. Risk Assessment: Do you want to hurt yourself or someone else? Patient reports no desire to harm self or others. Onset of symptoms was March 15, 2021. 06:11 Method Of Arrival: EMS: [facility] 06:11 Acuity: ROB 3 06:57 Note notified by registration that pt left the ED. Triage Assessment: 06:13 General: Appears uncomfortable, slender, Behavior is cooperative, listless. Pain: bb Complains of pain in abdomen Pain currently is 6 out of 10 on a pain scale. Neuro: Level of Consciousness is awake, obeys commands, Oriented to person, place, time, situation. Cardiovascular: Capillary refill < 3 seconds Patient's skin is warm and dry. Respiratory: Respiratory effort is even, unlabored, Respiratory pattern is regular. GI: Reports lower abdominal pain, Patient currently denies diarrhea, vomiting. Derm: Skin is pink, warm \\T\\ dry. Musculoskeletal: Circulation, motion, and sensation intact. [employer] TENDER: 06:13 does not know bb Historical: - Allergies: 06:13 No Known Allergies; bb - Home Meds: 06:13 gabapentin oral [Active]; Atarax Oral [Active]; bb - PMHx: 06:13 broken coccyx; Depression; Crohn's disease; Anxiety; bb - PSHx: 06:13 Appendectomy; ovarian cystectomy; bb - Immunization history:: Client reports having NOT received the Covid vaccine. - Social history:: Smoking status: Patient reports the use of cigarette tobacco products, smokes one-half pack cigarettes per day. Vital Signs: 06:11 BP 106 / 76; Pulse 62; Resp 18 S; Temp 97.5(O); Pulse Ox 100% on R/A; Weight 47.63 kg bb (R); Height 5 ft. 3 in. (160.02 cm) (R); Pain 6/10; 06:11 Body Mass Index 18.60 (47.63 kg, 160.02 cm) hilario ED Course: 05:35 Patient arrived in ED. wm 06:13 Triage completed. bb 06:13 Arm band placed on Patient placed in waiting room, Patient notified of wait time. bb Administered Medications: No medications were administered Outcome: 06:58 Patient left the ED. hilario Signatures: Willow Matthews RN RN Amber Barlow Corrections: (The following items were deleted from the chart) 06:14 06:13 PMHx: "Family HX of IBS"; hilario rich
[2021-03-15 07:02] VITALS: BP 106/76; TEMP 97.5; O2SAT 100
== END 2021-03-15 06:58 | disposition left against medical advice (07) ==
LOC: ER 05:33
DX: Z53.21 Procedure and treatment not carried out due to patient leaving prior to being seen by health care provider (principal)
CPT/HCPCS: 99282

== ENCOUNTER 2022-04-29 02:03 | Emergency (ER) | payer OTHER ==
--- OUTSIDE RECORDS SUMMARY | 2022-04-29 02:11 | XMS REPORT | Continuity of Care Document ---
:1995 Author Organization [facility] [place] t Address [address] [place] [address] Care Team Providers Name Role Phone KWAKU SANCHES Primary Care Physician Unavailable EZIO AGUILAR Attending Clinician Unavailable KWAKU SANCHES Attending Clinician Unavailable Kwaku Costa Attending Clinician [phone] Willow Yoder CNM Attending Clinician WILLOW YODER Attending Clinician Unavailable Provider, Rachelle Temp Attending Clinician Unavailable Doctor Unassigned, [place] Attending Clinician Unavailable Ashtyn Lynch Attending Clinician Unavailable MASOOD RIZZO Attending Clinician Unavailable AUNDREA MCLEOD Attending Clinician Unavailable Aundrea Rodriguez Attending Clinician EVELIO FATIMA Attending Clinician Unavailable [facility]ician Unavailable Juan C Regalado MD Attending Clinician Ever Duke Attending Clinician EVER DUKE Attending Clinician Unavailable JUAN C REGALADO Attending Clinician Unavailable Camron Sumner Attending Clinician Unavailable Odilon Robbins Attending Clinician [phone] Lab, Adc Fam Pob I Attending Clinician Unavailable Mira Arevalo Attending Clinician REGINE SCHAEFFER Attending Clinician Unavailable DO BERNADINE VAZQUEZ Attending Clinician Unavailable Physician, No Primary or Family Admitting Clinician Unavaila BERNADINE Tolliver Admitting Clinician Unavailable MD VJ ZUNIGA Admitting Clinician Unavailable BILLIE GARZA Admitting Clinician Unavailable Payers Payer Name Policy Type Policy Number Effective Date Expiration Date [facility] [id number] 2021 [facility] 00:00:00 [place]ID [place] [id number] 2016 00:00:00 Problems Condition Condition Condition Status Onset Resolution Last Treating Co mments Source Name Details Category Date Date Treatment Clinician Date Tobacco Tobacco Disease Active [facility] use [place] use [place] 2[place]09 [place] Rubella Rubella Disease Active Univers non-immune non-immune 04-10 it y of status, status, 00:00: [place] antepartum antepartum 00 Me dical Branch Anemia of Anemia of Disease Active Uni vers mother in mother in 1-27 [place] , , [place] ante[place] antepartum 00 Me dical Branch GBS (group GBS (group Disease Active 2021-03 Overview : Univers B B 03-14 Formattin ity of streptococ streptococ 00:00: g of this [place] cus) UTI cus) UTI 00 note Medica l complicati complicati might be Branch ng ng different from the original. Still positive Insufficie Insufficie Disease Active 2021-03 U nivers nt nt 0-29 ity of 00:00: [facility] care 00 Medical Branch Decline Decline Disease Active 2021-03 Univers flu flu 0-29 ity of vaccine vaccine 00:00: [place] Medical Branch Family Family Disease Active 2021-03 Overview: Univer s history of history of 0-29 Formattin ity of autism autism 00:00: g of this [place] 00 note Medical might be Branch different from the original. mother Mass of Mass of Disease Active 2021-03 Univers lower lower 0-29 ity of outer outer 00:00: [place] quadrant quadrant 00 Medica l of right of right Branch breast breast Maternal Maternal Disease Active 2021-03 Unive rs Crohn's Crohn's 0-29 ity of disease disease 00:00: [place] affecting affecting 00 Medi bharati Bran ch PSYCH PSYCH Diagnosis Active 2020-032021-02-11 Mem oria ISSUES ISSUES -23 21:51:00 l Active 00:00: Aditya 02/03/2021 00 [facility] EVALUATION EVALUATIO Diagnosis Active 2020-032020-12-21 Memoria N Active 0- 17:12:00 l 12/21/2020 00:00: [place] thompson 00 [facility] Screen for Screen for Disease Active 2019-03 U nivers STD STD 1-10 ity of (sexually ([place] transmitte transmitte 00 Me dical d disease) d disease) Br anch Adult BMI Adult BMI Disease Recurre Me thodi <19 kg/sq <19 kg/sq nce 7-16 st m m 00:00: Hospita 00 l Alcohol Alcohol Disease Recurre Method i use use nce [address] st disorder, disorder, 00:00: Hosp pita moderate, moderate, 00 l dependence dependence Cluster B Cluster B Disease Recurre Me thodi personalit personalit nce [address] st y disorder y disorder 00:00: Ho spita in adult in adult 00 l Unspecifie Unspecifie Disease Active M ethodi d mood d mood [address] (affective (affective 00:00: Ho spita ) disorder ) disorder 00 l Maternal Maternal Disease Active Unive rs varicella, varicella, 7-13 it y of non-immune non-immune [place] Tobacco Tobacco Disease Active Univers use in use in 7-12 ity of , , [place] antepartum antepartum 00 Me dical , second , second Branch trimester trimester Disease Active Uni vers [...] marijuana 7-12 ity of use use 00:00: [address] Bipolar I Bipolar I Problem Active 2021-02-09 Memoria disorder disorder 08:44:13 l (disorder) (disorder) He rmann Active Problem 02/09/2021 [facility] Chronic Chronic Problem Active 2021-02-09 Me moria anxiety anxiety 08:44:13 l (finding) (finding) Wilber nimco Active Problem 02/09/2021 [facility] History of Past Illness Condition Condition Condition Status Onset Resolution Last Treating Co mments Source Name Details Category Date Date Treatment Clinician Date Hallucinat Hallucina Problem 2020-032021-02-09 2021-02-09 Memoria ions, tions, 04-06 08:44:13 08:44:13 l unspecifie unspecifie 17:46: He rmann d d 00 02/04/2021 02/09/2021 [facility], [facility] Allergies, Adverse Reactions, Alerts Allergy Allergy Status Severity Reaction(s) Onset Inactive Treating Comm ents Source Name Type Date Date Clinician No Known DA Active U 2020-03 [facility]ie 04-05 [place] [facility] NO KNOWN Drug Active Univers ALLERGIE Class ity of S [facility] Family History Family Member Diagnosis Comments Start Date Stop Date Source Cousin Self-Injurious [facility]in [facility] Maternal uncle Alcohol abuse Methodi [facility] Social History Social Habit Start Date Stop Date Quantity Comments Source ASSERTION 2021-08-11 University of 00:00:00 [facility] History SDOH University o f Alcohol Comment [facility] ical Branch Exposure to 2022-04-05 2022-04-15 Not sure University of SARS-CoV-2 (event) 00:00:00 15:28:00 [facility] Alcohol intake 2022-04-15 2022-04-15 .57 /d University of 00:00:00 00:00:00 [facility] Tobacco use and 2022-01-07 2022-01-07 Smokeless Universit y of exposure 00:00:00 00:00:00 tobacco non-user [facility] dical Branch Tobacco Comment 2022-01-07 2022-01-07 pack per day Univers ity of 00:00:00 00:00:00 [facility] Cigarettes smoked 2022-01-07 2022-01-07 Univers ity of current (pack per 00:00:00 00:00:[address] [facility] ) - Reported Branch Cigarette 2022-01-07 2022-01-07 University of pack-years 00:00:00 00:00:00 [place] [facility] History SDOH 2020-01-22 2020-01-22 4 University o f Alcohol Frequency 00:00:00 00:00:[address] [facility] edical Branch History SDCO 2020-01-22 2020-01-22 2 [place] o f Alcohol Std Drinks 00:00:00 00:00:00 [place] [facility] History SDCO 2020-01-22 2020-01-22 99 [place] o Alcohol Binge 00:00:00 00:00:00 [facility] al Branch History of tobacco 2013-09-08 2016-09-08 Cigarette Smoker University of use 00:00:00 00:00:00 [facility] Sex Ass[birth year] At [birth year] [facility] 00:00:00 00:00:00 Hospital Smoking Status Start Date Stop Date Source Tobacco smoking [facility] consumption unknown Smokes tobacco daily 2022-01-07 00:00:00 [facility] ity of [facility] Social History [facility] Former smoker 2018-08-13 00:00:00 2018-08-13 [place] o [facility] 00:00:00 Medical Branch Medications Ordered Filled Start Stop Current Ordering Indication Dosage Frequency Signature Comments Components Source Medication Medication Date Date Medication? Clinician (SIG) Name Name Iron Fum & Yes [id number] 1{capsu Take 1 Univers P-FA-Vit B 1-27 le} capsule by ity of & C No.9 00:00: mouth [place] (INTEGRA 00 daily. Medical PLUS) 125 Branch mg iron- 1 mg Cap Iron Fum & Yes [id number] 1{capsu Take 1 Univers P-FA-Vit B 1-27 le} capsule by ity of & C No.9 00:00: mouth [place] (INTEGRA 00 daily. Medical PLUS) 125 Branch mg iron- 1 mg Cap Iron Fum & 2022-0 Yes [id number] 1{capsu Take 1 Univers P-FA-Vit B 1-27 le} capsule by ity of & C No.9 00:00: mouth [place] (INTEGRA daily. Medical PLUS) 125 Branch mg iron- 1 mg Cap Iron Fum & 2022-0 Yes [id number] 1{capsu Take 1 Univers P-FA-Vit B 1-27 le} capsule by ity of & C No.9 00:00: mouth [place] (INTEGRA daily. Medical PLUS) 125 Branch mg iron- 1 mg Cap Iron Fum & 2022-0 Yes [id number] 1{capsu Take 1 Univers P-FA-Vit B 1-27 le} capsule by ity of & C No.9 00:00: mouth [place] (INTEGRA daily. Medical PLUS) 125 Branch mg iron- 1 mg Cap Iron Fum & 2022-0 Yes [id number] 1{capsu Take 1 Univers P-FA-Vit B 127 le} capsule by ity of & C No.9 00:00: mouth [place] (INTEGRA daily. Medical PLUS) 125 Branch mg iron- 1 mg Cap Iron Fum & 2022-0 Yes [id number] 1{capsu Take 1 Univers P-FA-Vit B 127 le} capsule by ity of & C No.9 00:00: mouth [place] (INTEGRA daily. Medical PLUS) 125 Branch mg iron- 1 mg Cap No known 2022-0 No No known Unive rs medications - medication it y of 13:35: s [place] 07 [facility] Branch No known 2022-0 No No known Unive rs medications -12 medication it y of 12:46: s [place] 29 [facility] Branch ampicillin 2022-0 202- Yes [id number] 500mg Take 1 Univers 500 mg 03-15 capsule by ity of capsule 00:00: 05:59 mouth 4 [place] 00 :00 (four) Medical times Branch daily for 10 days. ampicillin 2022-0 2022- Yes [id number] 500mg Take 1 Univers 500 mg 03-15 capsule by ity of capsule 00:00: 05:59 mouth 4 [place] 00 :00 (four) Medical times Branch daily for 10 days. ampicillin 2022- Yes [id number] 500mg Take 1 Univers 500 mg 03-15 capsule by ity of capsule 00:00: 05:59 mouth 4 [place] 00 :00 (four) Medical times Branch daily for 10 days. ampicillin 2022- Yes [id number] 500mg Take 1 Univers 500 mg 03-15 capsule by ity of capsule 00:00: 05:59 mouth 4 [place] 00 :00 (four) Medical times Branch daily for 10 days. ampicillin 2022- Yes [id number] 500mg Take 1 Univers 500 mg 03-15 capsule by ity of capsule 00:00: 05:59 mouth 4 [place] 00 :00 (four) Medical times Branch daily for 10 days. No known 2021-03 No No known Unive rs medications 2-28 medication it y of 16:37: s [address] Branch No known 2021-03 No No known Unive rs medications 2-28 medication it y of 16:37: s [address] ampicillin 2021-03- No [id number] 500mg Take 1 Univers 500 mg 03-14 capsule by ity of capsule 00:00: 05:59 mouth [place] 00 :00 every 6 Medical (six) Branch hours for 10 days. ONDANSETRON 2021-03- No Take by Un ashley HCL (ZOFRAN 0-27 10-27 mouth. ity o f ORAL) 15:46: 00:00 [place] 24 :00 Medical Branch Seroquel 2020-03 No Notes: Memoria 1-25 (Same as: l 04:10: SEROquel) Aditya 00 Seroquel 2020-03 No Notes: Memoria 1-25 (Same as: l 04:10: SEROquel) Aditya 00 Seroquel 2020-03 No Notes: Memoria 1-25 (Same as: l 04:10: SEROquel) Viola 00 Seroquel 2020-03 No Notes: Memoria 1-25 (Same as: l 04:10: SEROquel) Viola 00 Seroquel 2020-03 No Notes: Memoria 1-25 (Same as: l 04:10: SEROquel) Aditya 00 Seroquel 2020-03 No Notes: Memoria 1-25 (Same as: l 04:10: SEROquel) [place]ola 00 Ativan 2020-03 No 1 mg, Memoria 1-25 Route: PO, l 03:08: Drug form: Aditya 00 TAB, ONCE, Dosing Weight 48.636, kg, Priority: STAT, Start date: 02/04/21 21:08:00 RANCH RIDER, Stop date: 02/04/21 21:08:00 RANCH RIDER Ativan 2020-03 No 1 mg, Memoria 1-25 Route: PO, l 03:08: Drug form: Aditya 00 TAB, ONCE, Dosing Weight 48.636, kg, Priority: STAT, Start date: 02/04/21 21:08:00 RANCH RIDER, Stop date: 02/04/21 21:08:00 RANCH RIDER Ativan 2020-03 No 1 mg, Memoria -25 Route: PO, l 03:08: Drug form: Viola 00 TAB, ONCE, Dosing Weight 48.636, kg, Priority: STAT, Start date: 02/04/21 21:08:00 RANCH RIDER, Stop date: 02/04/21 21:08:00 RANCH RIDER Ativan 2020-03 No 1 mg, Memoria 1-25 Route: PO, l 03:08: Drug form: Aditya 00 TAB, ONCE, Dosing Weight 48.636, kg, Priority: STAT, Start date: 02/04/21 21:08:00 RANCH RIDER, Stop date: 02/04/21 21:08:00 RANCH RIDER Ativan 2020-03 No 1 mg, Memoria -25 Route: PO, l 03:08: Drug form: Aditya 00 TAB, ONCE, Dosing Weight 48.636, kg, Priority: STAT, Start date: 02/04/21 21:08:00 RANCH RIDER, Stop date: 02/04/21 21:08:00 RANCH RIDER Ativan 2020-03 No 1 mg, Memoria 1-25 Route: PO, l 03:08: Drug form: Viola 00 TAB, ONCE, Dosing Weight 48.636, kg, Priority: STAT, Start date: 02/04/21 21:08:00 RANCH RIDER, Stop date: 02/04/21 21:08:00 RANCH RIDER ketOROLAC 2020-03 No 15 mg, Memori a 15 mg/mL 1-25 Route: l injectable 02:47: IVP, Drug He rmann solution 00 form: INJ, ONCE, Dosing Weight 48.636, kg, Priority: STAT, Start date: 02/04/21 20:47:00 RANCH RIDER, Stop date: 02/04/21 20:47:00 RANCH RIDER, 0 ketOROLAC 2021-1 No 15 mg, Memori a 15 mg/mL 1-25 Route: l injectable 02:47: IVP, Drug He rmann solution 00 form: INJ, ONCE, Dosing Weight 48.636, kg, Priority: STAT, Start date: 02/04/21 20:47:00 RANCH RIDER, Stop date: 02/04/21 20:47:00 RANCH RIDER, 0 ketOROLAC 2021-1 No 15 mg, Memori a 15 mg/mL 1-25 Route: l injectable 02:47: IVP, Drug He rmann solution 00 form: INJ, ONCE, Dosing Weight 48.636, kg, Priority: STAT, Start date: 02/04/21 20:47:00 RANCH RIDER, Stop date: 02/04/21 20:47:00 RANCH RIDER, 0 ketOROLAC 2021-1 No 15 mg, Memori a 15 mg/mL 1-25 Route: l injectable 02:47: IVP, Drug He rmann solution 00 form: INJ, ONCE, Dosing Weight 48.636, kg, Priority: STAT, Start date: 02/04/21 20:47:00 RANCH RIDER, Stop date: 02/04/21 20:47:00 RANCH RIDER, 0 ketOROLAC 2021-1 No 15 mg, Memori a 15 mg/mL 1-25 Route: l injectable 02:47: IVP, Drug He rmann solution 00 form: INJ, ONCE, Dosing Weight 48.636, kg, Priority: STAT, Start date: 02/04/21 20:47:00 RANCH RIDER, Stop date: 02/04/21 20:47:00 RANCH RIDER, 0 ketOROLAC 2021-1 No 15 mg, Memori a 15 mg/mL 1-25 Route: l injectable 02:47: IVP, Drug He rmann solution 00 form: INJ, ONCE, Dosing Weight 48.636, kg, Priority: STAT, Start date: 02/04/21 20:47:00 RANCH RIDER, Stop date: 02/04/21 20:47:00 RANCH RIDER, 0 naproxen 2020-03 Yes 500 mg = 1 Mem oria 500 mg oral 1-24 tab, PO, l tablet 19:50: Q12H, PRN Randolph n 00 Pain, X 10 day, # 16 tab, 0 Refill(s) gabapentin 2020-03 Yes See Memoria 300 MG Oral 1-24 Instructio l Capsule 19:50: ns, PO, Viola 00 Take one cap PO at Bedtime x 3 nights, then 1 cap PO BID x 3 days, then 1 cap PO TID thereafter , # 90 cap, 0 Refill(s) quetiapine 2020-03 Yes 50 mg = 1 Me moria 50 MG Oral 1-24 tab, PO, l Tablet 19:50: BID, # 60 Randolph n [Seroquel] 00 tab, 0 Refill(s) naproxen 2020-03 Yes 500 mg = 1 Mem oria 500 mg oral 1-24 tab, PO, l tablet 19:50: Q12H, PRN Randolph n 00 Pain, X 10 day, # 16 tab, 0 Refill(s) gabapentin 2020-03 Yes See Memoria 300 MG Oral 1-24 Instructio l Capsule 19:50: ns, PO, Aditya 00 Take one cap PO at Bedtime x 3 nights, then 1 cap PO BID x 3 days, then 1 cap PO TID thereafter , # 90 cap, 0 Refill(s) quetiapine 2020-03 Yes 50 mg = 1 Me moria 50 MG Oral 1-24 tab, PO, l Tablet 19:50: BID, # 60 Randolph n [Seroquel] 00 tab, 0 Refill(s) naproxen 2020-03 Yes 500 mg = 1 Mem oria 500 mg oral 1-24 tab, PO, l tablet 19:50: Q12H, PRN Randolph n 00 Pain, X 10 day, # 16 tab, 0 Refill(s) gabapentin 2020-03 Yes See Memoria 300 MG Oral 1-24 Instructio l Capsule 19:50: ns, PO, Aditya 00 Take one cap PO at Bedtime x 3 nights, then 1 cap PO BID x 3 days, then 1 cap PO TID thereafter , # 90 cap, 0 Refill(s) quetiapine 2020-03 Yes 50 mg = 1 Me moria 50 MG Oral 1-24 tab, PO, l Tablet 19:50: BID, # 60 Randolph n [Seroquel] 00 tab, 0 Refill(s) naproxen 2020-03 Yes 500 mg = 1 Mem oria 500 mg oral 1-24 tab, PO, l tablet 19:50: Q12H, PRN Randolph n 00 Pain, X 10 day, # 16 tab, 0 Refill(s) gabapentin 2020-03 Yes See Memoria 300 MG Oral 1-24 Instructio l Capsule 19:50: ns, PO, Aditya 00 Take one cap PO at Bedtime x 3 nights, then 1 cap PO BID x 3 days, then 1 cap PO TID thereafter , # 90 cap, 0 Refill(s) quetiapine 2020-03 Yes 50 mg = 1 Me moria 50 MG Oral 1-24 tab, PO, l Tablet 19:50: BID, # 60 Randolph n [Seroquel] 00 tab, 0 Refill(s) naproxen 2020-03 Yes 500 mg = 1 Mem oria 500 mg oral 1-24 tab, PO, l tablet 19:50: Q12H, PRN Randolph n 00 Pain, X 10 day, # 16 tab, 0 Refill(s) gabapentin 2020-03 Yes See Memoria 300 MG Oral 1-24 Instructio l Capsule 19:50: ns, PO, Viola 00 Take one cap PO at Bedtime x 3 nights, then 1 cap PO BID x 3 days, then 1 cap PO TID thereafter , # 90 cap, 0 Refill(s) quetiapine 2020-03 Yes 50 mg = 1 Me moria 50 MG Oral 1-24 tab, PO, l Tablet 19:50: BID, # 60 Randolph n [Seroquel] 00 tab, 0 Refill(s) naproxen 2020-03 Yes 500 mg = 1 Mem oria 500 mg oral 1-24 tab, PO, l tablet 19:50: Q12H, PRN Randolph n 00 Pain, X 10 day, # 16 tab, 0 Refill(s) gabapentin 2020-03 Yes See Memoria 300 MG Oral 1-24 Instructio l Capsule 19:50: ns, PO, Aditya 00 Take one cap PO at Bedtime x 3 nights, then 1 cap PO BID x 3 days, then 1 cap PO TID thereafter , # 90 cap, 0 Refill(s) quetiapine 2020-03 Yes 50 mg = 1 Me moria 50 MG Oral 1-24 tab, PO, l Tablet 19:50: BID, # 60 Randolph n [Seroquel] 00 tab, 0 Refill(s) naproxen 2020-03 No 500 mg = 1 Mem oria 500 mg oral 1-24 tab, PO, l tablet 17:48: Q12H, PRN Randolph n 00 Pain, X 10 day, # 16 tab, 0 Refill(s) naproxen 2020-03 No 500 mg = 1 Mem oria 500 mg oral 1-24 tab, PO, l tablet 17:48: Q12H, PRN Randolph n 00 Pain, X 10 day, # 16 tab, 0 Refill(s) naproxen 2020-03 No 500 mg = 1 Mem oria 500 mg oral 1-24 tab, PO, l tablet 17:48: Q12H, PRN Randolph n 00 Pain, X 10 day, # 16 tab, 0 Refill(s) naproxen 2020-03 No 500 mg = 1 Mem oria 500 mg oral 1-24 tab, PO, l tablet 17:48: Q12H, PRN Randolph n 00 Pain, X 10 day, # 16 tab, 0 Refill(s) naproxen 2020-03 No 500 mg = 1 Mem oria 500 mg oral 1-24 tab, PO, l tablet 17:48: Q12H, PRN Randolph n 00 Pain, X 10 day, # 16 tab, 0 Refill(s) naproxen 2020-03 No 500 mg = 1 Mem oria 500 mg oral 1-24 tab, PO, l tablet 17:48: Q12H, PRN Randolph n 00 Pain, X 10 day, # 16 tab, 0 Refill(s) gabapentin 2020-03 No See Memoria 300 MG Oral 1-24 Instructio l Capsule 17:45: ns, PO, Viola 00 Take one cap PO at Bedtime x 3 nights, then 1 cap PO BID x 3 days, then 1 cap PO TID thereafter , # 90 cap, 0 Refill(s) gabapentin 2020-03 No See Memoria 300 MG Oral 1-24 Instructio l Capsule 17:45: ns, PO, Aditya 00 Take one cap PO at Bedtime x 3 nights, then 1 cap PO BID x 3 days, then 1 cap PO TID thereafter , # 90 cap, 0 Refill(s) gabapentin 2020-03 No See Memoria 300 MG Oral 1-24 Instructio l Capsule 17:45: ns, PO, Viola 00 Take one cap PO at Bedtime x 3 nights, then 1 cap PO BID x 3 days, then 1 cap PO TID thereafter , # 90 cap, 0 Refill(s) gabapentin 2020-03 No See Memoria 300 MG Oral 1-24 Instructio l Capsule 17:45: ns, PO, Aditya 00 Take one cap PO at Bedtime x 3 nights, then 1 cap PO BID x 3 days, then 1 cap PO TID thereafter , # 90 cap, 0 Refill(s) gabapentin 2020-03 No See Memoria 300 MG Oral 1-24 Instructio l Capsule 17:45: ns, PO, Viola 00 Take one cap PO at Bedtime x 3 nights, then 1 cap PO BID x 3 days, then 1 cap PO TID thereafter , # 90 cap, 0 Refill(s) gabapentin 2020-03 No See Memoria 300 MG Oral 1-24 Instructio l Capsule 17:45: ns, PO, Viola 00 Take one cap PO at Bedtime x 3 nights, then 1 cap PO BID x 3 days, then 1 cap PO TID thereafter , # 90 cap, 0 Refill(s) quetiapine 2020-03 No 50 mg = 1 Me moria 50 MG Oral 1-24 tab, PO, l Tablet 17:44: BID, # 60 Randolph n [Seroquel] 00 tab, 0 Refill(s) quetiapine 2020-03 No 50 mg = 1 Me moria 50 MG Oral 1-24 tab, PO, l Tablet 17:44: BID, # 60 Randolph n [Seroquel] 00 tab, 0 Refill(s) quetiapine 2020-03 No 50 mg = 1 Me moria 50 MG Oral 1-24 tab, PO, l Tablet 17:44: BID, # 60 Randolph n [Seroquel] 00 tab, 0 Refill(s) quetiapine 2020-03 No 50 mg = 1 Me moria 50 MG Oral 1-24 tab, PO, l Tablet 17:44: BID, # 60 Randolph n [Seroquel] 00 tab, 0 Refill(s) quetiapine 2020-03 No 50 mg = 1 Me moria 50 MG Oral 1-24 tab, PO, l Tablet 17:44: BID, # 60 Randolph n [Seroquel] 00 tab, 0 Refill(s) quetiapine 2020-03 No 50 mg = 1 Me moria 50 MG Oral 1-24 tab, PO, l Tablet 17:44: BID, # 60 Randolph n [Seroquel] 00 tab, 0 Refill(s) ketOROLAC 2020-03 No 4 days. Fadi xi 15 mg/mL 1-24 l injectable 14:30: Viola solution 00 Seroquel 2020-03 No Notes: Memoria 1-24 (Same as: l 14:30: SEROquel) Aditya 00 ketOROLAC 2020-03 No 4 days. Fadi xi 15 mg/mL 1-24 l injectable 14:30: Aditya solution 00 Seroquel 2020-03 No Notes: Memoria 1-24 (Same as: l 14:30: SEROquel) Viola 00 ketOROLAC 2020-03 No 4 days. Fadi xi 15 mg/mL 1-24 l injectable 14:30: Aditya solution 00 Seroquel 2020-03 No Notes: Memoria 1-24 (Same as: l 14:30: SEROquel) Aditya 00 ketOROLAC 2020-03 No 4 days. Fadi xi 15 mg/mL 1-24 l injectable 14:30: Aditya solution 00 Seroquel 2020-03 No Notes: Memoria 1-24 (Same as: l 14:30: SEROquel) Aditya 00 ketOROLAC 2020-03 No 4 days. Fadi xi 15 mg/mL 1-24 l injectable 14:30: Aditya solution 00 Seroquel 2020-03 No Notes: Memoria 1-24 (Same as: l 14:30: SEROquel) Aditya 00 ketOROLAC 2020-03 No 4 days. Fadi xi 15 mg/mL 1-24 l injectable 14:30: Viola solution 00 Seroquel 2020-03 No Notes: Memoria 04-06 (Same as: l 14:30: SEROquel) Viola 00 Ibuprofen 2020-03 No 600 mg, Memor ia 04-06 Route: PO, l 08:41: Drug form: Aditya 00 TAB, ONCE, Dosing Weight 48.636, kg, Priority: STAT, Start date: 02/04/21 2:41:00 RANCH RIDER, Stop date: 02/04/21 2:41:00 RANCH RIDER Ibuprofen 2020-03 No 600 mg, Memor ia 04-06 Route: PO, l 08:41: Drug form: Viola 00 TAB, ONCE, Dosing Weight 48.636, kg, Priority: STAT, Start date: 02/04/21 2:41:00 RANCH RIDER, Stop date: 02/04/21 2:41:00 RANCH RIDER Ibuprofen 2020-03 No 600 mg, Memor ia 04-06 Route: PO, l 08:41: Drug form: Viola 00 TAB, ONCE, Dosing Weight 48.636, kg, Priority: STAT, Start date: 02/04/21 2:41:00 RANCH RIDER, Stop date: 02/04/21 2:41:00 RANCH RIDER Ibuprofen 2020-03 No 600 mg, Memor ia 04-06 Route: PO, l 08:41: Drug form: Aditya 00 TAB, ONCE, Dosing Weight 48.636, kg, Priority: STAT, Start date: 02/04/21 2:41:00 RANCH RIDER, Stop date: 02/04/21 2:41:00 RANCH RIDER Ibuprofen 2020-03 No 600 mg, Memor ia 04-06 Route: PO, l 08:41: Drug form: Aditya 00 TAB, ONCE, Dosing Weight 48.636, kg, Priority: STAT, Start date: 02/04/21 2:41:00 RANCH RIDER, Stop date: 02/04/21 2:41:00 RANCH RIDER Ibuprofen 2020-03 No 600 mg, Memor ia 04-06 Route: PO, l 08:41: Drug form: Viola 00 TAB, ONCE, Dosing Weight 48.636, kg, Priority: STAT, Start date: 02/04/21 2:41:00 RANCH RIDER, Stop date: 02/04/21 2:41:00 RANCH RIDER Seroquel 2020-03 No 25 mg, Memoria 1-23 Route: PO, l 19:29: ONCE, Aditya Dosing Weight 48.636, kg, Start date: 02/03/21 13:29:00 RANCH RIDER, Stop date: 02/03/21 13:29:00 RANCH RIDER gabapentin 2020- No 300 mg, 1 Me moria 300 MG Oral 1-23 cap, l Capsule 19:29: Route: PO, Herm nimco 00 ONCE, Dosing Weight 48.636, kg, Start date: 02/03/21 13:29:00 RANCH RIDER, Stop date: 02/03/21 13:29:00 RANCH RIDER Seroquel 2020-1 No 25 mg, Memoria 1-23 Route: PO, l 19:29: ONCE, Viola Dosing Weight 48.636, kg, Start date: 02/03/21 13:29:00 RANCH RIDER, Stop date: 02/03/21 13:29:00 RANCH RIDER gabapentin 2020- No 300 mg, 1 Me moria 300 MG Oral 1-23 cap, l Capsule 19:29: Route: PO, Herm nimco 00 ONCE, Dosing Weight 48.636, kg, Start date: 02/03/21 13:29:00 RANCH RIDER, Stop date: 02/03/21 13:29:00 RANCH RIDER Seroquel 2020-1 No 25 mg, Memoria 1-23 Route: PO, l 19:29: ONCE, Viola Dosing Weight 48.636, kg, Start date: 02/03/21 13:29:00 RANCH RIDER, Stop date: 02/03/21 13:29:00 RANCH RIDER gabapentin 2020- No 300 mg, 1 Me moria 300 MG Oral 1-23 cap, l Capsule 19:29: Route: PO, Herm nimco 00 ONCE, Dosing Weight 48.636, kg, Start date: 02/03/21 13:29:00 RANCH RIDER, Stop date: 02/03/21 13:29:00 RANCH RIDER Seroquel 2020-1 No 25 mg, Memoria 1-23 Route: PO, l 19:29: ONCE, Aditya 00 Dosing Weight 48.636, kg, Start date: 02/03/21 13:29:00 RANCH RIDER, Stop date: 02/03/21 13:29:00 RANCH RIDER gabapentin 2020- No 300 mg, 1 Me moria 300 MG Oral 1-23 cap, l Capsule 19:29: Route: PO, Herm nimco 00 ONCE, Dosing Weight 48.636, kg, Start date: 02/03/21 13:29:00 RANCH RIDER, Stop date: 02/03/21 13:29:00 RANCH RIDER Seroquel 2020-03 No 25 mg, Memoria 04-05 Route: PO, l 19:29: ONCE, Aditya 00 Dosing Weight 48.636, kg, Start date: 02/03/21 13:29:00 RANCH RIDER, Stop date: 02/03/21 13:29:00 RANCH RIDER gabapentin 2020- No 300 mg, 1 Me moria 300 MG Oral 1-23 cap, l Capsule 19:29: Route: PO, Herm nimco 00 ONCE, Dosing Weight 48.636, kg, Start date: 02/03/21 13:29:00 RANCH RIDER, Stop date: 02/03/21 13:29:00 RANCH RIDER Seroquel 2020-03 No 25 mg, Memoria 04-05 Route: PO, l 19:29: ONCE, Aditya 00 Dosing Weight 48.636, kg, Start date: 02/03/21 13:29:00 RANCH RIDER, Stop date: 02/03/21 13:29:00 RANCH RIDER gabapentin 2020-03 No 300 mg, 1 Me moria 300 MG Oral -23 cap, l Capsule 19:29: Route: PO, Herm nimco 00 ONCE, Dosing Weight 48.636, kg, Start date: 02/03/21 13:29:00 RANCH RIDER, Stop date: 02/03/21 13:29:00 RANCH RIDER Acetaminoph 2020-03 No 650 mg, Mem oria en 04-05 Route: PO, l 19:28: Drug form: Aditya 00 TAB, ONCE, Dosing Weight 48.636, kg, Priority: STAT, Start date: 02/03/21 13:28:00 RANCH RIDER, Stop date: 02/03/21 13:28:00 RANCH RIDER Acetaminoph 2020-03 No 650 mg, Mem oria en 04-05 Route: PO, l 19:28: Drug form: Viola 00 TAB, ONCE, Dosing Weight 48.636, kg, Priority: STAT, Start date: 02/03/21 13:28:00 RANCH RIDER, Stop date: 02/03/21 13:28:00 RANCH RIDER Acetaminoph 2020-03 No 650 mg, Mem oria en 04-05 Route: PO, l 19:28: Drug form: Viola 00 TAB, ONCE, Dosing Weight 48.636, kg, Priority: STAT, Start date: 02/03/21 13:28:00 RANCH RIDER, Stop date: 02/03/21 13:28:00 RANCH RIDER Acetaminoph 2020-1 No 650 mg, Mem oria en 04-05 Route: PO, l 19:28: Drug form: Viola 00 TAB, ONCE, Dosing Weight 48.636, kg, Priority: STAT, Start date: 02/03/21 13:28:00 RANCH RIDER, Stop date: 02/03/21 13:28:00 RANCH RIDER Acetaminoph 2020- No 650 mg, Mem oria en 04-05 Route: PO, l 19:28: Drug form: Viola 00 TAB, ONCE, Dosing Weight 48.636, kg, Priority: STAT, Start date: 02/03/21 13:28:00 RANCH RIDER, Stop date: 02/03/21 13:28:00 RANCH RIDER Acetaminoph 2020-03 No 650 mg, Mem oria en 04-05 Route: PO, l 19:28: Drug form: Aditya 00 TAB, ONCE, Dosing Weight 48.636, kg, Priority: STAT, Start date: 02/03/21 13:28:00 RANCH RIDER, Stop date: 02/03/21 13:28:00 RANCH RIDER medroxyPROG 2019-03- No [id number] 150mg Univers ESTERone 1-11 10-13 ity of (DEPO-PROVE 06:00: 04:59 [place] RA) 00 :00 Medical injection Branch 150 mg medroxyPROG 2019-2020- No [id number] 150mg Univers ESTERone 1-11 10-13 ity of (DEPO-PROVE 06:00: 04:59 [place] [facility]) 00 :00 Medical injection Branch 150 mg medroxyPROG 2019-2020- No [id number] 150mg Univers ESTERone 1-11 10-13 ity of (DEPO-PROVE 06:00: 04:59 [place] [facility]) 00 :00 Medical injection Branch 150 mg medroxyPROG 2019-2020- No [id number] 150mg Univers ESTERone 1-11 10-13 ity of (DEPO-PROVE 06:00: 04:59 [place] [facility]) 00 :00 Medical injection Branch 150 mg medroxyPROG 2019-03- No [id number] 150mg 150 mg, Univers ESTERone - 10-13 Intramuscu ity of (DEPO-PROVE 06:00: 04:59 lar, [place] RA) 00 :00 [id number], Medical injection 4 doses, Branch 150 mg First dose on Tue01/23/20 at 0000, Last dose on Tue10/01/20 at 0000, Routine medroxyPROG 2019-03- No [id number] 150mg Univers ESTERone 1-11 10-13 ity of (DEPO-PROVE 06:00: 04:59 [place] [facility]) 00 :00 Medical injection Branch 150 mg medroxyPROG 2019-03- No [id number] 150mg Univers ESTERone - 10-13 ity of (DEPO-PROVE 06:00: 04:59 [place] RA) 00 :00 Medical injection Branch 150 mg medroxyPROG 2019-03- No [id number] 150mg Univers ESTERone - 10-13 ity of (DEPO-PROVE 06:00: 04:59 [place] [facility]) 00 :00 Medical injection Branch 150 mg medroxyPROG 2019-03- No [id number] 150mg 150 mg, Univers ESTERone - 10-13 Intramuscu ity of (DEPO-PROVE 06:00: 04:59 lar, [place] RA) 00 :00 [id number], Medical injection 4 doses, Branch 150 mg First dose on Tue01/23/20 at 0000, Last dose on Tue10/01/20 at 0000, Routine ONDANSETRON 2019-03 Yes Take by Uni vers HCL (ZOFRAN 1-10 mouth. ity of ORAL) 16:47: [address] ONDANSETRON 2019- Yes Take by Uni vers HCL (ZOFRAN 1-10 mouth. ity of ORAL) 16:47: [address] ONDANSETRON 2019- Yes Take by Uni vers HCL (ZOFRAN 1-10 mouth. ity of ORAL) 16:47: [address] ONDANSETRON 2019- Yes Take by Uni vers HCL (ZOFRAN 1-10 mouth. ity of ORAL) 16:47: [address] ONDANSETRON 2019-03 Yes Take by Uni vers HCL (ZOFRAN 1-10 mouth. ity of ORAL) 16:47: [address] ONDANSETRON 2019-03 Yes Take by Uni vers HCL (ZOFRAN 1-10 mouth. ity of ORAL) 16:47: [address] ONDANSETRON 2019-03 Yes Take by Uni vers HCL (ZOFRAN 1-10 mouth. ity of ORAL) 16:47: [address] ONDANSETRON 2019-03 Yes Take by Uni vers HCL (ZOFRAN 1-10 mouth. ity of ORAL) 10:47: [address] ONDANSETRON 2019-03 Yes Take by Uni vers HCL (ZOFRAN 1-10 mouth. ity of ORAL) 10:47: [address] ONDANSETRON 2019-03 Yes Take by Uni vers HCL (ZOFRAN 1-10 mouth. ity of ORAL) 10:47: [address] ONDANSETRON 2019-03 Yes Take by Uni vers HCL (ZOFRAN 1-10 mouth. ity of ORAL) 10:47: [address] ONDANSETRON 0 Yes Take by Uni vers HCL (ZOFRAN 7-12 mouth. ity of ORAL) 20:24: [address] Vital Signs Vital Name Observation Time Observation Value Comments Source Systolic blood 2022-04-22 21:11:00 102 mm[Hg] Univer sity [facility] Diastolic blood 2022-04-22 21:11:00 69 [facility]Hg] [facility] 2022-04-22 21:11:00 54.885 kg [facility] BMI 2022-04-22 21:11:00 21.43 kg/m2 [facility] Systolic blood 2022-04-15 21:29:00 103 mm[Hg] Univer sity [facility] Diastolic blood 2022-04-15 21:29:00 71 mm[Hg] [facility] Heart rate 2022-04-15 21:29:00 88 /min [facility] Body temperature 2022-04-15 21:29:00 35.44 Bernice [facility] [place] [facility] Respiratory rate 2022-04-15 21:29:00 18 /min [facility] Body height 2022-04-15 21:29:00 160 cm [facility] [place] [facility] Body weight 2022-04-15 21:29:00 56.518 kg [facility] [place] [facility] BMI 2022-04-15 21:29:00 22.07 kg/m2 [facility] [place] [facility] Systolic blood 2022-04-08 19:34:00 107 mm[Hg] Univer sity [facility] Diastolic blood 2022-04-08 19:34:00 70 mm[Hg] Unive rsity [facility] Heart rate 2022-04-08 19:34:00 89 /min [facility] [place] [facility] Body temperature 2022-04-08 19:34:00 36.56 Bernice [facility] [place] [facility] Respiratory rate 2022-04-08 19:34:00 18 /min [facility] Body height 2022-04-08 19:34:00 160 cm [facility] [place] [facility] Body weight 2022-04-08 19:34:00 56.926 kg [facility] [place] [facility] BMI 2022-04-08 19:34:00 22.23 kg/m2 [facility] [place] [facility] Systolic blood 2022-03-25 17:04:00 107 mm[Hg] Univer sity [facility] Diastolic blood 2022-03-25 17:04:00 69 mm[Hg] Unive rsity [facility] Heart rate 2022-03-25 17:04:00 87 /min [facility] [place] [facility] Body temperature 2022-03-25 17:04:00 36.33 Bernice [facility] [place] [facility] Respiratory rate 2022-03-25 17:04:00 18 /min [facility] [place] [facility] Body height 2022-03-25 17:04:00 160 cm [facility] [place] [facility] Body weight 2022-03-25 17:04:00 54.035 kg [facility] [place] [facility] BMI 2022-03-25 17:04:00 21.10 kg/m2 [facility] [place] [facility] Systolic blood 2022-03-10 22:02:00 120 mm[Hg] Univer sity [facility] [place] [facility] Diastolic blood 2022-03-10 22:02:00 81 mm[Hg] Unive rsity [facility] [place] [facility] Heart rate 2022-03-10 22:02:00 97 /min [facility] [place] [facility] Body temperature 2022-03-10 22:02:00 36.72 Bernice [facility] [place] [facility] Respiratory rate 2022-03-10 22:02:00 18 /min [facility] [place] [facility] Body height 2022-03-10 22:02:00 160 cm [facility] [place] [facility] Body weight 2022-03-10 22:02:00 53.553 kg [facility] [place] [facility] BMI 2022-03-10 22:02:00 20.91 kg/m2 [facility] [place] [facility] Systolic blood 2022-01-07 20:23:00 122 mm[Hg] Univer sity [facility] [place] [facility] Diastolic blood 2022-01-07 20:23:00 67 mm[Hg] Unive rsity [facility] [place] [facility] Heart rate 2022-01-07 20:23:00 88 /min [facility] [place] [facility] Body temperature 2022-01-07 20:23:00 37 Bernice [facility] [place] [facility] Respiratory rate 2022-01-07 20:23:00 16 /min [facility] [place] [facility] Body height 2022-01-07 20:23:00 160 cm [facility] [place] [facility] Body weight 2022-01-07 20:23:00 50.984 kg [facility] [place] [facility] BMI 2022-01-07 20:23:00 19.91 kg/m2 [facility] [place] [facility] Systolic blood 2021-10-13 19:50:00 105 mm[Hg] Univer [facility]ity [facility] [place] [facility] Diastolic blood 2021-10-13 19:50:00 71 mm[Hg] Unive rsity [facility] [place] [facility] Heart rate 2021-10-13 19:50:00 73 /min [facility] [place] [facility] Body temperature 2021-10-13 19:50:00 37.17 Bernice [facility] [place] [facility] Respiratory rate 2021-10-13 19:50:00 20 /min [facility] [place] [facility] Body height 2021-10-13 19:50:00 160 cm [facility] [place] [facility] Body weight 2021-10-13 19:50:00 50.621 kg [facility] [place] [facility] BMI 2021-10-13 19:50:00 19.77 kg/m2 [facility] [place] [facility] Body temperature 2020-05-08 20:34:00 36.56 Bernice [facility] [place] [facility] Respiratory rate 2020-05-08 20:34:00 16 /min [facility] [place] [facility] Body height 2020-05-08 20:34:00 160 cm [facility] [place] [facility] Body weight 2020-05-08 20:34:00 42.547 kg [facility] [place] [facility] BMI 2020-05-08 20:34:00 16.62 kg/m2 [facility] [place] [facility] Systolic blood 2020-05-08 20:34:00 117 mm[Hg] Univer [facility]ity [facility] [place] [facility] Diastolic blood 2020-05-08 20:34:00 79 mm[Hg] Unive rsity [facility] [place] [facility] Heart rate 2020-05-08 20:34:00 87 /min [facility] [place] [facility] Systolic blood 2020-02-05 21:08:00 101 mm[Hg] Univer sity [facility] [place] [facility] Diastolic blood 2020-02-05 21:08:00 84 mm[Hg] Unive rsity [facility] [place] [facility] Heart rate 2020-02-05 21:08:00 64 /min [facility] [place] [facility] Body temperature 2020-02-05 21:08:00 36.17 Bernice [facility] [place] [facility] Respiratory rate 2020-02-05 21:08:00 16 /min [facility] [place] [facility] Body height 2020-02-05 21:08:00 160 cm [facility] [place] [facility] Body weight 2020-02-05 21:08:00 48.223 kg [facility] [place] [facility] BMI 2020-02-05 21:08:00 18.83 kg/m2 [facility] [place] [facility] Systolic blood 2020-01-22 16:39:00 104 mm[Hg] Univer sity [facility] [place] [facility] Diastolic blood 2020-01-22 16:39:00 71 mm[Hg] Unive rsity of pressure [facility] Heart rate 2020-01-22 16:39:00 83 /min [facility] Body temperature 2020-01-22 16:39:00 36.56 Bernice [facility] 2020-01-22 16:39:00 16 /min [facility] Body height 2020-01-22 16:39:00 160 cm [facility] Body weight 2020-01-22 16:39:00 49.442 kg [facility] BMI 2020-01-22 16:39:00 19.31 kg/m2 [facility] Temperature Oral (F) 2021-02-05 08:59:00 97.9 F [facility] Heart Rate 2021-02-05 08:59:00 [facility] Respitory Rate 2021-02-05 08:59:00 [facility] Systolic (mm Hg) 2021-02-05 08:59:00 Fadi rial [facility] Diastolic (mm Hg) 2021-02-05 08:59:00 Mem o[facility] Temperature Oral (F) 2021-02-05 07:00:00 98.3 F [facility] Heart Rate 2021-02-05 07:00:00 [facility] Respitory Rate 2021-02-05 07:00:00 Memori al Aditya Systolic (mm Hg) 2021-02-05 07:00:00 Fadi rial [facility] Diastolic (mm Hg) 2021-02-05 07:00:00 Mem [facility] Temperature Oral (F) 2021-02-05 00:31:00 98.2 F [facility] Heart Rate 2021-02-05 00:31:00 [facility] Respitory Rate 2021-02-05 00:31:00 Memori al Aditya Systolic (mm Hg) 2021-02-05 00:31:00 Fadi rial [facility]a Diastolic (mm Hg) 2021-02-05 00:31:00 Mem orial [facility] Height 2021-02-03 19:00:00 160.02 cm [facility] BMI Calculated 2021-02-03 19:00:00 Memori al [facility] Weight 2021-02-03 19:00:00 [facility] Respitory Rate 2020-12-21 22:29:00 Memori al [facility]ola Temperature Oral (F) 2020-12-21 22:29:00 98.6 F [facility] Heart Rate 2020-12-21 22:29:00 [facility] Systolic (mm Hg) 2020-12-21 22:29:00 Fadi rial [facility] Diastolic (mm Hg) 2020-12-21 22:29:00 Mem orial [facility] Systolic (mm Hg) 2020-12-21 19:51:00 Fadi rial [facility] Diastolic (mm Hg) 2020-12-21 19:51:00 Mem orial [facility] Heart Rate 2020-12-21 19:51:00 [facility] Respitory Rate 2020-12-21 19:51:00 Memori al Aditya Temperature Oral (F) 2020-12-21 19:51:00 99.2 F [facility] Procedures Procedure Date / Time Performed Performing Clinician Sourc e POCT URINALYSIS 2022-04-22 20:36:00 Willow Yoder [facility] GLUCOSE 1 HOUR POST 2022-04-08 20:35:00 Willow Yoder [facility] CBC WITH DIFF 2022-04-08 20:35:00 Willow Yoder [facility] RUBELLA SCREEN IGG 2022-04-08 20:35:00 Willow Yoder [facility] VZV ANTIBODY SCREEN 2022-04-08 20:35:00 Willow Yoder [facility] HEPATITIS B SURFACE 2022-04-08 20:35:00 Wlilow Yoder [facility] HB ABO GROUPING 2022-04-08 20:35:00 Willow Yoder [facility] HIV 1/2 AG-AB WITH 2022-04-08 20:35:00 Willow Yoder [facility] SYPHILIS IGG/IGM 2022-04-08 20:35:00 Willow Yoder [facility] EXTERNAL PROVIDER 2022-04-08 06:01:00 Doctor Unassigned, No [facility] RECORDS [facility] POCT URINALYSIS 2022-03-25 17:05:00 Willow Yoder [facility] POCT URINALYSIS 2022-03-10 21:58:00 Willow Yoder [facility] URINE CULTURE 2022-01-07 21:39:00 Willow Yoder [facility] GC & CHLAMYDIA 2022-01-07 21:39:00 Willow Yoder [facility] AMPLIFIED ASSAY [facility] HB ABO GROUPING 2022-01-07 21:20:00 Willow Yoder [facility] POCT TEST 2022-01-07 00:00:00 Willow Yoder [facility] POCT URINALYSIS W/O 2022-01-07 00:00:00 Willow Yoder [facility] SPECIFIC GRAVITY [facility] ASSIGNMENT OF BENEFITS 2021-10-13 19:35:28 Doctor Unassigned, No [facility] EXTERNAL PROVIDER 2021-03-26 06:01:00 Doctor Unassigned, No [facility] POCT TEST 2020-02-05 21:11:00 Maxine Cadet [facility] ASSIGNMENT OF BENEFITS 2020-01-22 16:15:55 Doctor Unassigned, No [facility] Plan of Care Planned Activity Planned Date Details Comments Source Future Scheduled 2022-04-15 COVID-19 VACCINE (#1) [facility] Test 15:16:45 [code = COVID-19 VACCINE (#1)] Future Scheduled 2022-04-15 Pneumococcal Vaccine: [facility] Test 15:16:45 Pediatrics (0 to 5 Years) and At-Risk Patients (6 to 64 Years) (1 - PCV) [code = Pneumococcal Vaccine: Pediatrics (0 to 5 Years) and At-Risk Patients (6 to 64 Years) (1 - PCV)] Future Scheduled 2022-04-15 Hepatitis C screening [facility] Test 15:16:45 (procedure) [code = 256198932] Future Scheduled 2022-04-15 Screening for [facility] Test 15:16:45 malignant neoplasm of cervix (procedure) [code = 647908469] Future Scheduled 2022-04-15 [facility] Test 15:16:45 [code = INFLUENZA VACCINE] Encounters Start End Encounter Admission Attending Care Care Encounter Source Date/Time Date/Time Type Type Clinicians Facility Department ID 2022-04-30 2022-04-30 Outpatient R VELVET, [facility] [id number] Univers 16:00:00 16:00:00 KWAKU de jesus o [facility] 2022-04-22 2022-04-22 Outpatient R VELVET, [facility] [id number] Univers 14:00:00 14:47:41 KWAKU de jesus o [facility] 2022-04-22 2022-04-22 [facility] [id number] Univers 14:00:00 14:47:41 Kwaku Quiroz COMPUTING SERVICES DIRECTOR [id number] ity of Visit [facility] [id number] David as MATERNAL [id number] Med ical & CHILD [address] [place] [address] 2022-04-19 2022-04-19 Outpatient P [facility] [id number] Univers 09:15:00 09:15:00 ity of [facility] 2022-04-15 2022-04-15 [facility] [id number] Univers 15:30:00 15:45:00 Kwaku C COMPUTING SERVICES DIRECTOR [id number] ity of Visit [facility] [id number] David as MATERNAL [phone] [facility] & CHILD [address] [place] [address] 2022-04-15 2022-04-15 Outpatient R VELVET, [facility] [id number] Univers 15:30:00 15:30:00 KWAKU de jesus o [facility] 2022-04-09 2022-04-09 [facility] 1.2.840.114 [id number] Univers 00:00:00 00:00:00 Management Willow A COMPUTING SERVICES DIRECTOR [id number] ity of REGIONAL [id number] David as MATERNAL [id number] [facility] & CHILD [address] [place] [address] 2022-04-09 2022-04-09 Telephone Osvaldo [facility] 1.2.840.114 [id number] Univers 00:00:00 00:00:00 Willow Paz COMPUTING SERVICES DIRECTOR [id number] i ty of [facility] [id number] David as MATERNAL [id number] [facility] & CHILD [address] [place] [address] 2022-04-08 2022-04-08 Outpatient R OSVALDO [facility] [id number] Univers 13:00:00 13:54:39 WILLOW de jesus [facility] 2022-04-08 2022-04-08 Routine Provider, Rachelle [facility] 1 .2.840.114 [id number] Univers 13:00:00 13:54:39 Kwaku Sanches COMPUTING SERVICES DIRECTOR [id number] .10 ity of Visit Willow Yoder [facility] 4.2.7.2.686 [place] MATERNAL [id number] [facility] CHILD [address] [place] [address] 2022-04-08 2022-04-08 Orders Doctor EZIO 1.2.840.114 [id number] Univers 00:00:00 00:00:00 Only Unassigned, ITA [id number] ity of [place] [facility] 4.2.7.2.686 David as [phone] [facility] [address] 2022-04-02 2022-04-02 Telephone Syed [facility] [id number] Univers 00:00:00 00:00:00 Ashtyn SPECIALTY [id number] ity of [place]7.2.686 [place] [id number] [facility] [address] 2022-03-25 2022-03-25 Outpatient R VELVET [facility] [id number] Univers 11:00:00 11:43:52 KWAKU huertas [facility] 2022-03-25 2022-03-25 [facility] [id number] Univers 11:00:00 11:43:52 Kwaku C COMPUTING SERVICES DIRECTOR [id number] ity of Visit REGIONAL 4.2.7.2.686 David as MATERNAL [id number] [facility] & [address] 2022-03-19 2022-03-19 Outpatient R MATTHIASMASOOD [facility] [id number] Univers 10:30:00 10:30[facility] 2022-03-15 2022-03-15 Telephone [facility] 1.2.840.114 [id number] Univers 00:00:00 00:00:00 Kwaku C COMPUTING SERVICES DIRECTOR [id number] ity of REGIONAL 4.2.7.2.686 David as MATERNAL [id number] [address] 2022-03-12 2022-03-12 Outpatient R VELVET, [facility] [id number] Univers 08:30:00 08:30:00 KWAKU ity o f [facility] 2022-03-10 2022-03-10 Outpatient R AKINSIPE, [facility] [id number] Univers 16:00:00 16:37:48 KWAKU ity o f [facility] 2022-03-10 2022-03-10 [facility] [place] [id number] Univers 16:00:00 16:37:48 Kwaku C COMPUTING SERVICES DIRECTOR [id number] ity of Visit REGIONAL 4.2.7.2.686 David as MATERNAL [id number] [facility] & [address] 2022-02-15 2022-02-15 Outpatient P [facility] [id number] Univers 11:00:00 11:00:00 [facility] 2022-02-08 2022-02-08 Outpatient R AKINSIPE, [facility] [id number] Univers 16:00:00 16:00:00 KWAKU ity o f [facility] 2022-01-12 2022-01-12 Case [facility] 1.2.840.114 [id number] Univers 00:00:00 00:00:00 Management Willow Paz COMPUTING SERVICES DIRECTOR [id number] ity of [facility] 4.2.7.2.686 David as MATERNAL [id number] [facility] CHILD [address] [place] [address] 2022-01-07 2022-01-07 Outpatient R OSVALDO [facility] [id number] Univers 14:45:00 16:22:54 WILLOW ity of [facility] 2022-01-07 2022-01-07 Initial Provider, Rachelle Temp [facility] 1 .2.840.114 [id number] Univers 14:45:00 16:22:54 Aundrea Mcleod COMPUTING SERVICES DIRECTOR [id number] 0 ity of Visit Willow Yoder [facility] 4.2.7.2.686 [place] MATERNAL [id number] [facility] & CHILD [address] [place] [address] 2022-01-04 2022-01-04 Outpatient R EVELIO FATIMA [facility] [id number] Univers 14:30:00 14:30:00 ity of [facility] 2021-12-02 2021-12-02 Outpatient R EVELIO FATIMA [facility] [id number] Univers 14:00:00 14:00:00 ity of [facility] 2021-10-13 2021-10-13 Nurse Visit, Rachelle Nurse [facility] 1.2 .840.114 [id number] Univers 13:30:00 15:01:36 Visit Aundrea Mcleod COMPUTING SERVICES DIRECTOR [id number] ity of [facility] 4.2.7.2.686 David as MATERNAL [id number] [facility]ILD [address] [place] [address] 2021-10-13 2021-10-13 Outpatient R HARSHA [facility] [id number] Univers 13:30:00 13:30:00 AUNDREA crewsy o f [facility] 2021-10-13 2021-10-13 Orders Doctor HOLGUIN 1.2.840.114 [id number] Univers 00:00:00 00:00:00 Only Unassigned, ITA 350.1.13.10 ity of [place] [facility] 4.2.7.2.686 David as [phone] [facility] [address] 2021-03-26 2021-03-26 Orders Doctor EZIO 1.2.840.114 [id number] Univers 00:00:00 00:00:00 Only Unassigned, ITA 350.1.13.10 ity of [place] [facility] 4.2.7.2.686 David as [id number] [facility] [address] 2021-02-05 2021-02-[address] [facility] 1.2.840.114 [id number] Univers 09:45:00 23:59:00 Encounter Juan C CORREIA'S 350.1.13.10 ity of [place]7.2.[place] [facility] [id number] [place] [id number] [place] 2021-02-03 2021-02-05 Emergency nullFlavo [facility] [id number] Memoria 18:58:56 09:53:00 luiz Burgess 01 [facility] 2021-02-03 2021-02-05 Emergency [facility] [id number] Memoria 18:58:56 09:53:00 luiz Burgess [address] [place] [address] 2021-02-03 2021-02-05 Outpatient Langridge, [facility] [id number] 12:58:56 03:53:00 [facility] 2021-02-03 2021-02-05 Outpatient Leilani, [facility] [id number] 12:58:56 03:53:00 Ever R 2021-02-03 2021-02-05 Emergency E [place]IL[place], [place] 7501 [place] 12:58:00 03:53:00 [place] 2021-02-05 2021-02-05 [id number] 00:[facility]00 00:00:00 JUAN C de [facility] of [facility] 2021-02-03 2021-02-03 Emergency EM Taisha, HCAKW MOISES [id number] [facility] 00:21:00 09:51:00 Camron 44 [facility] 2020-12-21 2020-12-21 Emergency nullFlavo [facility] [id number] Memoria 19:37:21 22:30:00 r Aditya 00 l [facility] 2020-12-21 2020-12-21 Emergency nullFlavo [facility] [id number] Memoria 19:37:21 22:30:00 r [facility] [place] 2020-12-21 2020-12-21 Outpatient Itzel [facility] [id number] 14:37:21 17:30:00 Ebelechukwu 00 Agaegbu 2020-07-31 2020-07-31 Outpatient R [facility] [id number] Univers 10:30:00 10:[facility]-08 2020-05-08 [facility] 1.2 .[id number] Univers 14:23:44 14:44:19 Visit Aundrea Mcleod COMPUTING SERVICES DIRECTOR [id number] [place] [id number] David as MATERNAL [phone] Med ical & CHILD [address] [place] [address] 2020-05-08 2020-05-08 Outpatient R HARSHA [facility] [id number] Univers 14:30:00 14:30:00 AUNDREA de jesus o f [facility] 2020-05-06 2020-05-06 Outpatient R [facility] [id number] Univers 13:30:00 13:30:00 ity [facility] 2020-04-29 2020-04-29 Outpatient R [facility] [id number] Univers 13:00:00 13:00:00 ity [facility] 2020-04-19 2020-04-19 Outpatient R [facility] [id number] Univers 17:20:00 17:20:00 [facility] 2020-03-19 2020-03-19 Laboratory Lab, Adc Fam Pob I [facility] 1.2. [id number] [id number] Univers 09:20:08 09:40:08 Only Mira [facility] [id number] [place] [id number] Advid as Professio [phone] Ms [address] Office Building One 2020-03-19 2020-03-19 Outpatient R [facility] [id number] Univers 09:15:00 09:15:00 ity of [facility] 2020-03-19 2020-03-19 Outpatient R HARSHA [facility] [id number] Univers 08:30:00 08:30:00 AUNDREA de jesus o f [facility] 2020-03-19 2020-03-19 Letter Doctor EZIO [id number] Univers 00:00:00 00:00:00 (Out) Unassigned, ITA [id number] ity of [place] [facility] [id number] David as [phone] [address] 2020-02-05 2020-02-05 Nurse Visit, [facility] Nurse [facility] 1.2 .840.114 [id number] Univers 14:53:03 15:32:51 Visit Harsha Aundrea R COMPUTING SERVICES DIRECTOR [id number] David as MATERNAL [phone] Med ical & CHILD [address] [place] [address] 2020-02-05 2020-02-05 Outpatient R [facility] [id number] Univers 15:00:00 15:00:00 ity of [facility] 2020-01-22 2020-01-22 [facility] 1.2.840.114 [id number] Univers 10:21:10 11:37:03 Visit Kerriedmond Tariq COMPUTING SERVICES DIRECTOR [id number] David as MATERNAL [phone] [facility] ical & CHILD [address] [place] [address] 2020-01-22 2020-01-22 [facility] [id number] Univers 10:15:00 10:15:00 AUNDREA de jesus o f [facility] 2020-01-22 2020-01-22 Orders Doctor EZIO 1.2.840.114 [id number] Univers 00:00:00 00:00:00 Only Unassigned, ITA [id number] ity of [place] [facility] [id number] David as [phone] [facility] bharati [address] 2019-09-20 2019-09-24 Inpatient [facility] [id number] [place] 00:00:00 00:00:00 REGINE [address] 2019-09-19 2019-09-19 Outpatient [facility] [id number] [place] 00:00:00 00:00:[address] 2019-09-11 2019-09-15 Inpatient [facility] [id number] [place] 00:00:00 00:00:00 REGINE [address] Results Test Description Test Time Test Comments Results Result Comments Source POCT URINALYSIS W SPECIFIC GRAVITY 2022-04-22 20:36:00 Test Item Value Reference Range Interpretation Comme nts POCT U SP GRAV (test code = 3255) . 1.005-1.025 POCT PH U (test code = 3254) . 5-8 POCT U LEUK EST (test code = 3263) . Negative - Negative POCT U NIT (test code = 3262) . Negative - Negative POCT U PROT (test code = 3259) 1+ Negative - Negative POCT U GLU (test code = 3256) neg Negative - Negative POCT U KETONE (test code = 3258) . Negative - Negative POCT U UROBILI (test code = 3260) . 0.2-1 POCT U BILI (test code = 3261) . Negative - Negative POCT U BLD (test code = 3257) . Negative - Negative POCT U COLOR (test code = 3266) . POCT U APPEAR (test code = 3267) . [facility] [id number] 11:10:37 Test Item Value Reference Range Interpretation Comments ABO & RH (test code O POSITIVE Performe d at [place] = 20) Laboratory Serv [facility] Blood [facility]3 [facility] s [address]Rdil Free: [phone] A No. [id number] IAT (test code = Negative Performed a t [place] 1185) Laboratory Serv [facility] Blood [facility]3 [facility] s [address]Wocg Free: [phone] A No. [id number] [facility] URINALYSIS W SPECIFIC [id number] 17:05:00 Test Item Value Reference Range Interpretation Comments POCT U SP GRAV (test code = 3255) . 1.005-1.025 POCT PH U (test code = 3254) . 5-8 POCT U LEUK EST (test code = 3263) . Negative - Negative POCT U NIT (test code = 3262) . Negative - Negative POCT U PROT (test code = 3259) 1+ Negative - Negative POCT U GLU (test code = 3256) Neg Negative - Negative POCT U KETONE (test code = 3258) . Negative - Negative POCT U UROBILI (test code = 3260) . 0.2-1 POCT U BILI (test code = 3261) . Negative - Negative POCT U BLD (test code = 3257) . Negative - Negative POCT U COLOR (test code = 3266) . POCT U APPEAR (test code = 3267) [facility] URINALYSIS W SPECIFIC [id number] 17:05:00 Test Item Value Reference Range Interpretation Comments POCT U SP GRAV (test code = 3255) . 1.005-1.025 POCT PH U (test code = 3254) . 5-8 POCT U LEUK EST (test code = 3263) . Negative - Negative POCT U NIT (test code = 3262) . Negative - Negative POCT U PROT (test code = 3259) 1+ Negative - Negative POCT U GLU (test code = 3256) Neg Negative - Negative POCT U KETONE (test code = 3258) . Negative - Negative POCT U UROBILI (test code = 3260) . 0.2-1 POCT U BILI (test code = 3261) . Negative - Negative POCT U BLD (test code = 3257) . Negative - Negative POCT U COLOR (test code = 3266) . POCT U APPEAR (test code = 3267) [facility] URINALYSIS W SPECIFIC [id number] 17:05:00 Test Item Value Reference Range Interpretation Comments POCT U SP GRAV (test code = 3255) . 1.005-1.025 POCT PH U (test code = 3254) . 5-8 POCT U LEUK EST (test code = 3263) . Negative - Negative POCT U NIT (test code = 3262) . Negative - Negative POCT U PROT (test code = 3259) 1+ Negative - Negative POCT U GLU (test code = 3256) Neg Negative - Negative POCT U KETONE (test code = 3258) . Negative - Negative POCT U UROBILI (test code = 3260) . 0.2-1 POCT U BILI (test code = 3261) . Negative - Negative POCT U BLD (test code = 3257) . Negative - Negative POCT U COLOR (test code = 3266) . POCT U APPEAR (test code = 3267) [facility] URINALYSIS W SPECIFIC [id number] 21:58:00 Test Item Value Reference Range Interpretation Comments POCT U SP GRAV (test code = 3255) . 1.005-1.025 POCT PH U (test code = 3254) . 5-8 POCT U LEUK EST (test code = 3263) . Negative - Negative POCT U NIT (test code = 3262) . Negative - Negative POCT U PROT (test code = 3259) Trace Negative - Negative POCT U GLU (test code = 3256) Neg Negative - Negative POCT U KETONE (test code = 3258) . Negative - Negative POCT U UROBILI (test code = 3260) . 0.2-1 POCT U BILI (test code = 3261) . Negative - Negative POCT U BLD (test code = 3257) . Negative - Negative POCT U COLOR (test code = 3266) POCT U APPEAR (test code = 3267) [facility] URINALYSIS W SPECIFIC [id number] 21:58:00 Test Item Value Reference Range Interpretation Comments POCT U SP GRAV (test code = 3255) . 1.005-1.025 POCT PH U (test code = 3254) . 5-8 POCT U LEUK EST (test code = 3263) . Negative - Negative POCT U NIT (test code = 3262) . Negative - Negative POCT U PROT (test code = 3259) Trace Negative - Negative POCT U GLU (test code = 3256) Neg Negative - Negative POCT U KETONE (test code = 3258) . Negative - Negative POCT U UROBILI (test code = 3260) . 0.2-1 POCT U BILI (test code = 3261) . Negative - Negative POCT U BLD (test code = 3257) . Negative - Negative POCT U COLOR (test code = 3266) POCT U APPEAR (test code = 3267) [facility], BLOOD [id number] 09:36:54 Test Item Value Reference Range Interpretation Comments ABO & RH (test code O POSITIVE Performe d at [facility] = 20) Laboratory Serv [facility] Blood [facility]3 [facility] s [address]Zsri Free: [phone] A No. [id number] IAT (test code = Negative Performed a t [facility] 1185) Laboratory Serv [facility] Blood [facility]3 [facility] s [address]Azla Free: [phone] A No. [id number] [facility]viewPOKS [id number] 21:27:00 Test Item Value Reference Range Interpretation Comments POCT PREG (test code = 1605) Positive On board controls acceptable with C Yes Line (test code = 3574) POCT PREG LOT # (test code = 3575) POCT PREG TEST DATE (test code = 3576) [facility] URINALYSIS W/O SPECIFIC [id number] 21:25:00 Test Item Value Reference Range Interpretation Comments POCT PH U (test code = 3254) 6 mg/dl 5-8 POCT U LEUK EST (test code = trace Negative - Negative 3263) POCT U NIT (test code = 3262) negative Negative - Negative POCT U PROT (test code = 3259) trace Negative - Negative POCT U GLU (test code = 3256) negative Negative - Negative POCT U KETONE (test code = 3258) negative Negative - Negative POCT U BLD (test code = 3257) trace Negative - Negative [facility]viewIMMUNOLOGY2021-11-24 19:12:00 Test Item Value Reference Range Interpretation Comments Coronavirus (COVID-19) Not Detected CANDI (test code = (02/04/21 1:12 PM) Coronavirus (COVID-19) CANDI) [id number] 19:12:00 Test Item Value Reference Range Interpretation Comments Coronavirus (COVID-19) Not Detected CANDI (test code = (02/04/21 1:12 PM) Coronavirus (COVID-19) CANDI) [facility] [id number] 19:12:00 Test Item Value Reference Range Interpretation Comments Coronavirus (COVID-19) Not Detected CANDI (test code = (02/04/21 1:12 PM) Coronavirus (COVID-19) CANDI) [facility] [id number] 19:12:00 Test Item Value Reference Range Interpretation Comments Coronavirus (COVID-19) Not Detected CANDI (test code = (02/04/21 1:12 PM) Coronavirus (COVID-19) CANDI) [facility] [id number] 19:12:00 Test Item Value Reference Range Interpretation Comments Coronavirus (COVID-19) Not Detected CANDI (test code = (02/04/21 1:12 PM) Coronavirus (COVID-19) CANDI) [facility] [id number] 19:12:00 Test Item Value Reference Range Interpretation Comments Coronavirus (COVID-19) Not Detected CANDI (test code = (02/04/21 1:12 PM) Coronavirus (COVID-19) CANDI) [facility] [place] [id number] 20:03:00 Test Item Value Reference Range Interpretation Comments A/G Ratio (test code = A/G Ratio) 1.1 1 0.7-1.6 [facility] [place] [id number] 20:03:00 Test Item Value Reference Range Interpretation Comments eGFR (test code = eGFR) 98 [facility] [place] [id number] 20:03:00 Test Item Value Reference Range Interpretation Comments Lipase Lvl (test code = Lipase Lvl) 89 73-393 [facility] PROSimity [id number] 20:03:00 Test Item Value Reference Range Interpretation Comments U Amph Scr (test code Positive *ABN*(02/03/21 = U Amph Scr) 2:03 PM) [facility] HermannDRUG [id number] 20:03:00 Test Item Value Reference Range Interpretation Comments U Clair Scr (test code Negative *NA*(02/03/21 = U Clair Scr) 2:03 PM) [facility] [id number] 20:03:00 Test Item Value Reference Range Interpretation Comments U Benzodiaz Scr (test Negative *NA*(02/03/21 code = U Benzodiaz Scr) 2:03 PM) [facility]annDR[facility] [id number] 20:03:00 Test Item Value Reference Range Interpretation Comments U Cocaine Scr (test Negative *NA*(02/03/21 code = U Cocaine Scr) 2:03 PM) [facility] [id number] 20:03:00 Test Item Value Reference Range Interpretation Comments U Cannab Scr (test Positive *ABN*(02/03/21 code = U Cannab Scr) 2:03 PM) [facility] [id number] 20:03:00 Test Item Value Reference Range Interpretation Comments U Opiate Scr (test Negative *NA*(02/03/21 code = U Opiate Scr) 2:03 PM) [facility] [id number] 20:03:00 Test Item Value Reference Range Interpretation Comments U Phencyclidine Scr (test Negative code = U Phencyclidine *NA*(02/03/21 2:03 Scr) PM) [facility] [id number] 20:03:00 Test Item Value Reference Range Interpretation Comments UDS Note (test code = See Note (02/03/21 2:03 UDS Note) PM) [facility], [id number] 20:03:00 Test Item Value Reference Range Interpretation Comments S Preg (test code = S Negative *NA*(02/03/21 Preg) 2:03 PM) [facility] CenterScfqcnoUNWXRCUURV2382-18-03 20:03:00 Test Item Value Reference Range Interpretation Comments WBC (test code = WBC) 7.7 3.7-10.4 [facility] CenterLbktfzlZOQDWVZNXJ4564-41-73 20:03:00 Test Item Value Reference Range Interpretation Comments RBC (test code = RBC) 4.58 4.20-5.40 [facility] CenterNotbkyhZBUNSFMSVK9334-26-56 20:03:00 Test Item Value Reference Range Interpretation Comments Hgb (test code = Hgb) 12.4 12.0-16.0 [facility]RtbqvlbFUAFRNOXRZ6832-23-64 20:03:00 Test Item Value Reference Range Interpretation Comments Hct (test code = Hct) 38.3 36.0-48.0 [facility] TexasJxmouazBSQTZFXZCF8498-52-05 20:03:00 Test Item Value Reference Range Interpretation Comments MCV (test code = MCV) 83.6 80.0-98.0 [facility] TexasEzdbyusCDXZXBAPFV0174-64-15 20:03:00 Test Item Value Reference Range Interpretation Comments MCH (test code = MCH) 27.2 pg 27.0-31.0 [facility] TexasKtbbvgaKSCKDTPCCA9888-69-25 20:03:00 Test Item Value Reference Range Interpretation Comments MCHC (test code = MCHC) 32.5 32.0-36.0 [facility] TexasCemrowlWUMQLNHTVO8179-88-67 20:03:00 Test Item Value Reference Range Interpretation Comments RDW (test code = RDW) 15.3 11.5-14.5 [facility] TexasQpalcilBKOTVEXGDW8640-64-24 20:03:00 Test Item Value Reference Range Interpretation Comments Platelet (test code = Platelet) 438 133-450 [facility] TexasBzwjjqzQKSEYTCFVI6070-65-07 20:03:00 Test Item Value Reference Range Interpretation Comments MPV (test code = MPV) 7.2 7.4-10.4 [facility] TexasSbdmfjvAVJQCNOYCQ6244-61-37 20:03:00 Test Item Value Reference Range Interpretation Comments Segs (test code = Segs) 52.3 45.0-75.0 [facility] TexasBtdxebcZXMLGLFSVH0604-89-43 20:03:00 Test Item Value Reference Range Interpretation Comments Lymphocytes (test code = Lymphocytes) 35.4 20.0-40.0 [facility] TexasUnjizccKHIPIDWAJT6988-62-94 20:03:00 Test Item Value Reference Range Interpretation Comments Monocytes (test code = Monocytes) 9.3 2.0-12.0 [facility] TexasThgixknTHLZIFTSFJ2233-49-49 20:03:00 Test Item Value Reference Range Interpretation Comments Eosinophils (test code = 2.1 See_Comment [A utomated message] The Eosinophils) system which ge nerated this result tra nsmitted reference range : <=4.0. The reference r zully was not used to int erpret this result as normal/abnormal . [facility] TexasQawmwflVOMPVMAVUM7484-94-03 20:03:00 Test Item Value Reference Range Interpretation Comments Basophils (test code = 0.9 See_Comment [Aut omated message] The Basophils) system which ge nerated this result tra nsmitted reference range : <=1.0. The reference r zully was not used to int erpret this result as normal/abnormal . [facility] TexasCgtofonJUMDCIOPDU2714-27-78 20:03:00 Test Item Value Reference Range Interpretation Comments Neutrophils # (test code = Neutrophils 4.0 1.5-8.1 #) [facility] TexasJyziibpUPIBXPPVYL8918-29-88 20:03:00 Test Item Value Reference Range Interpretation Comments Lymphocytes # (test code = Lymphocytes 2.7 1.0-5.5 #) [facility] TexasCbasmusHIGIFXUNAA6656-33-25 20:03:00 Test Item Value Reference Range Interpretation Comments Monocytes # (test code 0.7 See_Comment [Aut omated message] The = Monocytes #) system which generated this result tra nsmitted reference range : <=0.8. The reference r zully was not used to int erpret this result as normal/abnormal . [facility] TexasBhmmzdmYEBZMZWESC7315-28-46 20:03:00 Test Item Value Reference Range Interpretation Comments Eosinophils # (test code 0.2 See_Comment [A utomated message] The = Eosinophils #) system whic h generated this result tra nsmitted reference range : <=0.5. The reference r zully was not used to int erpret this result as normal/abnormal . [facility] TexasDjivdhjAXIHVJRTGG5952-39-14 20:03:00 Test Item Value Reference Range Interpretation Comments Basophils # (test code 0.1 See_Comment [Aut omated message] The = Basophils #) system which generated this result tra nsmitted reference range : <=0.2. The reference r zully was not used to int erpret this result as normal/abnormal . [place] [id number] 20:03:00 Test Item Value Reference Range Interpretation Comments Acetaminoph Lvl (test code = 32 10-20 Acetaminoph Lvl) [place] [id number] 20:03:00 Test Item Value Reference Range Interpretation Comments Ethanol Lvl (test code = Ethanol Lvl) 7 [place] [id number] 20:03:00 Test Item Value Reference Range Interpretation Comments Etoh (%) (test code = Etoh (%)) 0.007 [place] [id number] 20:03:00 Test Item Value Reference Range Interpretation Comments Salicylate Lvl (test no gt See_Comment [Autom ated message] The code = Salicylate Lvl) syste m which generated this result tra nsmitted reference range : <=30.0. The reference r zully was not used to int erpret this result as normal/abnormal . [facility]Open[facility] [id number] 20:03:00 Test Item Value Reference Range Interpretation Comments Glucose Lvl (test code = Glucose Lvl) 90 70-99 [facility] [id number] 20:03:00 Test Item Value Reference Range Interpretation Comments Glucose Lvl (test code = Glucose Lvl) 90 70-99 [facility] [id number] 20:03:00 Test Item Value Reference Range Interpretation Comments BUN (test code = BUN) 6 7-22 [facility] [id number] 20:03:00 Test Item Value Reference Range Interpretation Comments Creatinine Lvl (test code = Creatinine 0.83 0.50-1.40 Lvl) [facility] [id number] 20:03:00 Test Item Value Reference Range Interpretation Comments Sodium Lvl (test code = Sodium Lvl) 141 135-145 [facility] [id number] 20:03:00 Test Item Value Reference Range Interpretation Comments Potassium Lvl (test code = Potassium 3.9 3.5-5.1 Lvl) [facility] [id number] 20:03:00 Test Item Value Reference Range Interpretation Comments Chloride Lvl (test code = Chloride Lvl) 110 95-109 [facility] [id number] 20:03:00 Test Item Value Reference Range Interpretation Comments CO2 (test code = CO2) 28 24-32 [facility] [id number] 20:03:00 Test Item Value Reference Range Interpretation Comments Calcium Lvl (test code = Calcium Lvl) 9.0 8.5-10.5 [facility] [id number] 20:03:00 Test Item Value Reference Range Interpretation Comments Total Protein (test code = Total 6.9 6.4-8.4 Protein) [facility] [id number] 20:03:00 Test Item Value Reference Range Interpretation Comments BUN (test code = BUN) 6 7-22 [facility] [id number] 20:03:00 Test Item Value Reference Range Interpretation Comments Albumin Lvl (test code = Albumin Lvl) 3.6 3.5-5.0 [facility] [id number] 20:03:00 Test Item Value Reference Range Interpretation Comments ALT (test code = ALT) 17 See_Comment [Auto mated message] The system which ge nerated this result transmit rocky reference range : <=65. The reference range was not used to interpr et this result as jesenia l/abnormal. [facility] [place] [id number] 20:03:00 Test Item Value Reference Range Interpretation Comments AST (test code = AST) 17 See_Comment [Auto mated message] The system which ge nerated this result transmit rocky reference range : <=37. The reference range was not used to interpr et this result as jesenia l/abnormal. [facility] [place] [id number] 20:03:00 Test Item Value Reference Range Interpretation Comments Alk Phos (test code = Alk Phos) 69 39-136 [facility] [place] [id number] 20:03:00 Test Item Value Reference Range Interpretation Comments Bili Total (test code = Bili Total) 0.2 0.2-1.3 [facility] [place] [id number] 20:03:00 Test Item Value Reference Range Interpretation Comments AGAP (test code = AGAP) 6.9 10.0-20.0 [facility] [place] [id number] 20:03:00 Test Item Value Reference Range Interpretation Comments B/C Ratio (test code = B/C Ratio) 7 1 6-25 [facility] [place] [id number] 20:03:00 Test Item Value Reference Range Interpretation Comments Globulin (test code = Globulin) 3.3 2.7-4.2 [facility] [place] [id number] 20:03:00 Test Item Value Reference Range Interpretation Comments A/G Ratio (test code = A/G Ratio) 1.1 1 0.7-1.6 [facility] [id number] 20:03:00 Test Item Value Reference Range Interpretation Comments eGFR (test code = eGFR) 98 [facility] [id number] 20:03:00 Test Item Value Reference Range Interpretation Comments Creatinine Lvl (test code = Creatinine 0.83 0.50-1.40 Lvl) [facility] [id number] 20:03:00 Test Item Value Reference Range Interpretation Comments Lipase Lvl (test code = Lipase Lvl) 89 73-393 [facility]DR[facility] [id number] 20:03:00 Test Item Value Reference Range Interpretation Comments U Amph Scr (test code Positive *ABN*(02/03/21 = U Amph Scr) 2:03 PM) [facility] [id number] 20:03:00 Test Item Value Reference Range Interpretation Comments U Clair Scr (test code Negative *NA*(02/03/21 = U Clair Scr) 2:03 PM) [facility]Rev[facility] [id number] 20:03:00 Test Item Value Reference Range Interpretation Comments U Benzodiaz Scr (test Negative *NA*(02/03/21 code = U Benzodiaz Scr) 2:03 PM) [facility] [id number] 20:03:00 Test Item Value Reference Range Interpretation Comments U Cocaine Scr (test Negative *NA*(02/03/21 code = U Cocaine Scr) 2:03 PM) [facility] [id number] 20:03:00 Test Item Value Reference Range Interpretation Comments U Cannab Scr (test Positive *ABN*(02/03/21 code = U Cannab Scr) 2:03 PM) [facility] [id number] 20:03:00 Test Item Value Reference Range Interpretation Comments U Opiate Scr (test Negative *NA*(02/03/21 code = U Opiate Scr) 2:03 PM) [facility] [id number] 20:03:00 Test Item Value Reference Range Interpretation Comments U Phencyclidine Scr (test Negative code = U Phencyclidine *NA*(02/03/21 2:03 Scr) PM) [facility]2021-11-23 20:03:00 Test Item Value Reference Range Interpretation Comments UDS Note (test code = See Note (02/03/21 2:03 UDS Note) PM) [facility]DMSE9642[facility] 20:03:00 Test Item Value Reference Range Interpretation Comments S Preg (test code = S Negative *NA*(02/03/21 Preg) 2:03 PM) [facility]2021-11-23 20:03:00 Test Item Value Reference Range Interpretation Comments Sodium Lvl (test code = Sodium Lvl) 141 135-145 [facility]ihpsbvLUMZAJKZPJ3484-28-73 20:03:00 Test Item Value Reference Range Interpretation Comments WBC (test code = WBC) 7.7 3.7-10.4 [facility]CcurbqsEIONGUNHXG4081-73-49 20:03:00 Test Item Value Reference Range Interpretation Comments RBC (test code = RBC) 4.58 4.20-5.40 [facility] TexasTyvokmeCAQMWKGPGK4902-98-24 20:03:00 Test Item Value Reference Range Interpretation Comments Hgb (test code = Hgb) 12.4 12.0-16.0 [facility] TexasWmwwpajPOMOFVVRTU8008-09-16 20:03:00 Test Item Value Reference Range Interpretation Comments Hct (test code = Hct) 38.3 36.0-48.0 [facility] TexasOozqmtvNWMFYQWROL2764-84-61 20:03:00 Test Item Value Reference Range Interpretation Comments MCV (test code = MCV) 83.6 80.0-98.0 [facility] TexasWlgfnahTLEYRSIKTQ2698-83-29 20:03:00 Test Item Value Reference Range Interpretation Comments MCH (test code = MCH) 27.2 pg 27.0-31.0 [facility] TexasYjmegodFWNATXULPO9017-89-86 20:03:00 Test Item Value Reference Range Interpretation Comments MCHC (test code = MCHC) 32.5 32.0-36.0 [facility] TexasUlhxiauUWSIEYSZSR5573-38-05 20:03:00 Test Item Value Reference Range Interpretation Comments RDW (test code = RDW) 15.3 11.5-14.5 [facility] TexasXkmebxtGGXBCYPYIJ1632-78-61 20:03:00 Test Item Value Reference Range Interpretation Comments Platelet (test code = Platelet) 438 133-450 [facility] TexasHwvnfhuIXZZUBQMIN9311-38-96 20:03:00 Test Item Value Reference Range Interpretation Comments MPV (test code = MPV) 7.2 7.4-10.4 [facility]2021-11-23 20:03:00 Test Item Value Reference Range Interpretation Comments Potassium Lvl (test code = Potassium 3.9 3.5-5.1 Lvl) [place] 998951-11-23 20:03:00 Test Item Value Reference Range Interpretation Comments Segs (test code = Segs) 52.3 45.0-75.0 [place] 998951-11-23 20:03:00 Test Item Value Reference Range Interpretation Comments Lymphocytes (test code = Lymphocytes) 35.4 20.0-40.0 [place] 998951-11-23 20:03:00 Test Item Value Reference Range Interpretation Comments Monocytes (test code = Monocytes) 9.3 2.0-12.0 [place] 998951-11-23 20:03:00 Test Item Value Reference Range Interpretation Comments Eosinophils (test code = 2.1 See_Comment [A utomated message] The Eosinophils) system which ge nerated this result tra nsmitted reference range : <=4.0. The reference r zully was not used to int erpret this result as normal/abnormal . [place] 998951-11-23 20:03:00 Test Item Value Reference Range Interpretation Comments Basophils (test code = 0.9 See_Comment [Aut omated message] The Basophils) system which ge nerated this result tra nsmitted reference range : <=1.0. The reference r zully was not used to int erpret this result as normal/abnormal . [place] 998951-11-23 20:03:00 Test Item Value Reference Range Interpretation Comments Neutrophils # (test code = Neutrophils 4.0 1.5-8.1 #) [place] [address]-11-23 20:03:00 Test Item Value Reference Range Interpretation Comments Lymphocytes # (test code = Lymphocytes 2.7 1.0-5.5 #) [place] [address]-11-23 20:03:00 Test Item Value Reference Range Interpretation Comments Monocytes # (test code 0.7 See_Comment [Aut omated message] The = Monocytes #) system which generated this result tra nsmitted reference range : <=0.8. The reference r zully was not used to int erpret this result as normal/abnormal . [address]11-23 20:03:00 Test Item Value Reference Range Interpretation Comments Eosinophils # (test code 0.2 See_Comment [A utomated message] The = Eosinophils #) system whic h generated this result tra nsmitted reference range : <=0.5. The reference r zully was not used to int erpret this result as normal/abnormal . [facility]ncGRTMAEYEKK3155-43-68 20:03:00 Test Item Value Reference Range Interpretation Comments Basophils # (test code 0.1 See_Comment [Aut omated message] The = Basophils #) system which generated this result tra nsmitted reference range : <=0.2. The reference r zully was not used to int erpret this result as normal/abnormal . [facility] [place] [id number] 20:03:00 Test Item Value Reference Range Interpretation Comments Chloride Lvl (test code = Chloride Lvl) 110 95-109 [facility] CenterHolaqiqGFJIPADDDL1902-83-49 20:03:00 Test Item Value Reference Range Interpretation Comments Acetaminoph Lvl (test code = 32 10-20 Acetaminoph Lvl) [facility] CenterXyltayzHYQMEKDQWN8756-37-94 20:03:00 Test Item Value Reference Range Interpretation Comments Ethanol Lvl (test code = Ethanol Lvl) 7 [facility] CenterKlkpnyzVUOHZIXXCO7106-25-39 20:03:00 Test Item Value Reference Range Interpretation Comments Etoh (%) (test code = Etoh (%)) 0.007 [facility] CenterJympebyBOKSIOOSSP4577-62-37 20:03:00 Test Item Value Reference Range Interpretation Comments Salicylate Lvl (test no gt See_Comment [Autom ated message] The code = Salicylate Lvl) syste m which generated this result tra nsmitted reference range : <=30.0. The reference r zully was not used to int erpret this result as normal/abnormal . [facility] [place] [id number] 20:03:00 Test Item Value Reference Range Interpretation Comments CO2 (test code = CO2) 28 24-32 [facility] [place] [id number] 20:03:00 Test Item Value Reference Range Interpretation Comments Calcium Lvl (test code = Calcium Lvl) 9.0 8.5-10.5 [facility] [place] [id number] 20:03:00 Test Item Value Reference Range Interpretation Comments Glucose Lvl (test code = Glucose Lvl) 90 70-99 [place] 342271-11-23 20:03:00 Test Item Value Reference Range Interpretation Comments BUN (test code = BUN) 6 7-22 [place] 342271-11-23 20:03:00 Test Item Value Reference Range Interpretation Comments Creatinine Lvl (test code = Creatinine 0.83 0.50-1.40 Lvl) [place] 342271-11-23 20:03:00 Test Item Value Reference Range Interpretation Comments Sodium Lvl (test code = Sodium Lvl) 141 135-145 [place] 342271-11-23 20:03:00 Test Item Value Reference Range Interpretation Comments Potassium Lvl (test code = Potassium 3.9 3.5-5.1 Lvl) [place] 342271-11-23 20:03:00 Test Item Value Reference Range Interpretation Comments Chloride Lvl (test code = Chloride Lvl) 110 95-109 [place] 342271-11-23 20:03:00 Test Item Value Reference Range Interpretation Comments CO2 (test code = CO2) 28 24-32 [place] 342271-11-23 20:03:00 Test Item Value Reference Range Interpretation Comments Calcium Lvl (test code = Calcium Lvl) 9.0 8.5-10.5 [place] 342271-11-23 20:03:00 Test Item Value Reference Range Interpretation Comments Total Protein (test code = Total 6.9 6.4-8.4 Protein) [place] 342271-11-23 20:03:00 Test Item Value Reference Range Interpretation Comments Albumin Lvl (test code = Albumin Lvl) 3.6 3.5-5.0 [place] 342271-11-23 20:03:00 Test Item Value Reference Range Interpretation Comments Total Protein (test code = Total 6.9 6.4-8.4 Protein) [place] 342271-11-23 20:03:00 Test Item Value Reference Range Interpretation Comments ALT (test code = ALT) 17 See_Comment [Auto mated message] The system which ge nerated this result transmit rocky reference range : <=65. The reference range was not used to interpr et this result as jesenia l/abnormal. [facility] [place] [id number] 20:03:00 Test Item Value Reference Range Interpretation Comments AST (test code = AST) 17 See_Comment [Auto mated message] The system which ge nerated this result transmit rocky reference range : <=37. The reference range was not used to interpr et this result as jesenia l/abnormal. [facility] [employer]2021-11-23 20:03:00 Test Item Value Reference Range Interpretation Comments Alk Phos (test code = Alk Phos) 69 39-136 [facility] [place] [id number] 20:03:00 Test Item Value Reference Range Interpretation Comments Bili Total (test code = Bili Total) 0.2 0.2-1.3 [facility] [employer]2021-11-23 20:03:00 Test Item Value Reference Range Interpretation Comments AGAP (test code = AGAP) 6.9 10.0-20.0 [facility] [place] [id number] 20:03:00 Test Item Value Reference Range Interpretation Comments B/C Ratio (test code = B/C Ratio) 7 1 6-25 [facility] [employer]2021-11-23 20:03:00 Test Item Value Reference Range Interpretation Comments Globulin (test code = Globulin) 3.3 2.7-4.2 [facility] [employer]2021-11-23 20:03:00 Test Item Value Reference Range Interpretation Comments A/G Ratio (test code = A/G Ratio) 1.1 1 0.7-1.6 [facility] [employer]2021-11-23 20:03:00 Test Item Value Reference Range Interpretation Comments eGFR (test code = eGFR) 98 [facility] [employer]2021-11-23 20:03:00 Test Item Value Reference Range Interpretation Comments Lipase Lvl (test code = Lipase Lvl) 89 73-393 [facility] [employer]2021-11-23 20:03:00 Test Item Value Reference Range Interpretation Comments Albumin Lvl (test code = Albumin Lvl) 3.6 3.5-5.0 [facility] [employer]2021-11-23 20:03:00 Test Item Value Reference Range Interpretation Comments U Amph Scr (test code Positive *ABN*(02/03/21 = U Amph Scr) 2:03 PM) [facility] [id number]:03:[facility] Test Item Value Reference Range Interpretation Comments U Clair Scr (test code Negative *NA*(02/03/21 = U Clair Scr) 2:03 PM) [facility] [id number] 20:03:00 Test Item Value Reference Range Interpretation Comments U Benzodiaz Scr (test Negative *NA*(02/03/21 code = U Benzodiaz Scr) 2:03 PM) [facility] [id number] 20:03:00 Test Item Value Reference Range Interpretation Comments U Cocaine Scr (test Negative *NA*(02/03/21 code = U Cocaine Scr) 2:03 PM) [facility] [id number] 20:03:00 Test Item Value Reference Range Interpretation Comments U Cannab Scr (test Positive *ABN*(02/03/21 code = U Cannab Scr) 2:03 PM) [facility] [id number] 20:03:00 Test Item Value Reference Range Interpretation Comments U Opiate Scr (test Negative *NA*(02/03/21 code = U Opiate Scr) 2:03 PM) [facility] [id number] 20:03:00 Test Item Value Reference Range Interpretation Comments U Phencyclidine Scr (test Negative code = U Phencyclidine *NA*(02/03/21 2:03 Scr) PM) [facility] [id number] 20:03:00 Test Item Value Reference Range Interpretation Comments UDS Note (test code = See Note (02/03/21 2:03 UDS Note) PM) [facility] DevajpuUUXJWXYLYXYFX6627-91-05 20:03:00 Test Item Value Reference Range Interpretation Comments S Preg (test code = S Negative *NA*(02/03/21 Preg) 2:03 PM) [facility]lkqakoMEVVXNQZVM1963-04-58 20:03:00 Test Item Value Reference Range Interpretation Comments WBC (test code = WBC) 7.7 3.7-10.4 [facility] [id number] 20:03:00 Test Item Value Reference Range Interpretation Comments ALT (test code = ALT) 17 See_Comment [Auto mated message] The system which ge nerated this result transmit rocky reference range : <=65. The reference range was not used to interpr et this result as jesenia l/abnormal. [facility]vhesfdRQDSSOWOEE8295-80-14 20:03:00 Test Item Value Reference Range Interpretation Comments RBC (test code = RBC) 4.58 4.20-5.40 [facility] HospitalDlgfbifLDAWKNXEWJ3028-57-34 20:03:00 Test Item Value Reference Range Interpretation Comments Hgb (test code = Hgb) 12.4 12.0-16.0 [facility] HospitalYmtfbdwRMYIQBNMET1083-77-37 20:03:00 Test Item Value Reference Range Interpretation Comments Hct (test code = Hct) 38.3 36.0-48.0 [facility] HospitalYmeklwaWKEUFHUTIV3186-40-42 20:03:00 Test Item Value Reference Range Interpretation Comments MCV (test code = MCV) 83.6 80.0-98.0 [facility] HospitalEwaagakXGPHINEVMO9208-44-52 20:03:00 Test Item Value Reference Range Interpretation Comments MCH (test code = MCH) 27.2 pg 27.0-31.0 [facility] HospitalAvhbumlVQUHXMJQNO8572-60-65 20:03:00 Test Item Value Reference Range Interpretation Comments MCHC (test code = MCHC) 32.5 32.0-36.0 [facility] HospitalCibgmpmDNHGXNVLAR0701-31-42 20:03:00 Test Item Value Reference Range Interpretation Comments RDW (test code = RDW) 15.3 11.5-14.5 [facility] HospitalVsnjegyDCWRQXVSIJ0136-84-02 20:03:00 Test Item Value Reference Range Interpretation Comments Platelet (test code = Platelet) 438 133-450 [facility]WdmlknpOGIHYQPOQD4467-78-55 20:03:00 Test Item Value Reference Range Interpretation Comments MPV (test code = MPV) 7.2 7.4-10.4 [facility]WkpvtqlPDLKJCWKQC8688-85-38 20:03:00 Test Item Value Reference Range Interpretation Comments Segs (test code = Segs) 52.3 45.0-75.0 [facility]2021-11-23 20:03:00 Test Item Value Reference Range Interpretation Comments AST (test code = AST) 17 See_Comment [Auto mated message] The system which ge nerated this result transmit rocky reference range : <=37. The reference range was not used to interpr et this result as jesenia l/abnormal. [facility] TexasHawpllwWGLWLTZZRP4906-26-44 20:03:00 Test Item Value Reference Range Interpretation Comments Lymphocytes (test code = Lymphocytes) 35.4 20.0-40.0 [place] 998951-11-23 20:03:00 Test Item Value Reference Range Interpretation Comments Monocytes (test code = Monocytes) 9.3 2.0-12.0 [place] 998951-11-23 20:03:00 Test Item Value Reference Range Interpretation Comments Eosinophils (test code = 2.1 See_Comment [A utomated message] The Eosinophils) system which ge nerated this result tra nsmitted reference range : <=4.0. The reference r zully was not used to int erpret this result as normal/abnormal . [facility] TexasFlwdadjJAVRMAZXIX1112-51-63 20:03:00 Test Item Value Reference Range Interpretation Comments Basophils (test code = 0.9 See_Comment [Aut omated message] The Basophils) system which ge nerated this result tra nsmitted reference range : <=1.0. The reference r zully was not used to int erpret this result as normal/abnormal . [facility] TexasQqhwxcaPQNBVZGBSH9094-66-69 20:03:00 Test Item Value Reference Range Interpretation Comments Neutrophils # (test code = Neutrophils 4.0 1.5-8.1 #) [facility] TexasIalyeutQEQEXBLDHZ4831-25-38 20:03:00 Test Item Value Reference Range Interpretation Comments Lymphocytes # (test code = Lymphocytes 2.7 1.0-5.5 #) [facility] TexasFyekqqcCEDSZIHKTE7969-48-14 20:03:00 Test Item Value Reference Range Interpretation Comments Monocytes # (test code 0.7 See_Comment [Aut omated message] The = Monocytes #) system which generated this result tra nsmitted reference range : <=0.8. The reference r zully was not used to int erpret this result as normal/abnormal . [facility] TexasVewiwqpSSJPDZPSOJ8109-96-76 20:03:00 Test Item Value Reference Range Interpretation Comments Eosinophils # (test code 0.2 See_Comment [A utomated message] The = Eosinophils #) system ic h generated this result tra nsmitted reference range : <=0.5. The reference r zully was not used to int erpret this result as normal/abnormal . [facility] TexasTwivugoLKMEQNOPSA2963-55-28 20:03:00 Test Item Value Reference Range Interpretation Comments Basophils # (test code 0.1 See_Comment [Aut omated message] The = Basophils #) system which generated this result tra nsmitted reference range : <=0.2. The reference r zully was not used to int erpret this result as normal/abnormal . [facility] CenterUpvpfoyPQYPPYPELU4859-95-16 20:03:00 Test Item Value Reference Range Interpretation Comments Acetaminoph Lvl (test code = 32 10-20 Acetaminoph Lvl) [facility] [place] [id number] 20:03:00 Test Item Value Reference Range Interpretation Comments Alk Phos (test code = Alk Phos) 69 39-136 [facility] CenterWwwlsduIAVNYSCDYF2373-04-26 20:03:00 Test Item Value Reference Range Interpretation Comments Ethanol Lvl (test code = Ethanol Lvl) 7 [facility] CenterYvrounhOGNQUTRZRO8517-83-96 20:03:00 Test Item Value Reference Range Interpretation Comments Etoh (%) (test code = Etoh (%)) 0.007 [facility] CenterGfjtqjaMLLWDKAYSG9063-47-09 20:03:00 Test Item Value Reference Range Interpretation Comments Salicylate Lvl (test no gt See_Comment [Autom ated message] The code = Salicylate Lvl) syste m which generated this result tra nsmitted reference range : <=30.0. The reference r zully was not used to int erpret this result as normal/abnormal . [facility] [place] [id number] 20:03:00 Test Item Value Reference Range Interpretation Comments Bili Total (test code = Bili Total) 0.2 0.2-1.3 [facility] [place] [id number] 20:03:00 Test Item Value Reference Range Interpretation Comments AGAP (test code = AGAP) 6.9 10.0-20.0 [facility] [place] [id number] 20:03:00 Test Item Value Reference Range Interpretation Comments B/C Ratio (test code = B/C Ratio) 7 1 6-25 [facility] CenterOpenPlacement [id number] 20:03:00 Test Item Value Reference Range Interpretation Comments Globulin (test code = Globulin) 3.3 2.7-4.2 [facility] [place] [id number] 20:03:00 Test Item Value Reference Range Interpretation Comments A/G Ratio (test code = A/G Ratio) 1.1 1 0.7-1.6 [facility] JooceannTruzip [id number] 20:03:00 Test Item Value Reference Range Interpretation Comments eGFR (test code = eGFR) 98 [facility] CenterannCHEM [id number] 20:03:00 Test Item Value Reference Range Interpretation Comments Lipase Lvl (test code = Lipase Lvl) 89 73-393 [facility] CenterannDRUG GUWJME6744-04-78 20:03:00 Test Item Value Reference Range Interpretation Comments U Amph Scr (test code Positive *ABN*(02/03/21 = U Amph Scr) 2:03 PM) [facility] CenterannDR[facility] JZNKSV8969-61-40 20:03:00 Test Item Value Reference Range Interpretation Comments U Clair Scr (test code Negative *NA*(02/03/21 = U Clair Scr) 2:03 PM) [facility] CenterannDR[facility] EVDKAH4571-32-32 20:03:00 Test Item Value Reference Range Interpretation Comments U Benzodiaz Scr (test Negative *NA*(02/03/21 code = U Benzodiaz Scr) 2:03 PM) [facility] CenterannDR[facility] [id number] 20:03:00 Test Item Value Reference Range Interpretation Comments U Cocaine Scr (test Negative *NA*(02/03/21 code = U Cocaine Scr) 2:03 PM) [facility] CenterannDR[facility] [id number] 20:03:00 Test Item Value Reference Range Interpretation Comments U Cannab Scr (test Positive *ABN*(02/03/21 code = U Cannab Scr) 2:03 PM) [facility] Centerann[facility] [id number] 20:03:00 Test Item Value Reference Range Interpretation Comments U Opiate Scr (test Negative *NA*(02/03/21 code = U Opiate Scr) 2:03 PM) [facility] [id number] 20:03:00 Test Item Value Reference Range Interpretation Comments U Phencyclidine Scr (test Negative code = U Phencyclidine *NA*(02/03/21 2:03 Scr) PM) [facility] CenterannDR[facility] [id number] 20:03:00 Test Item Value Reference Range Interpretation Comments UDS Note (test code = See Note (02/03/21 2:03 UDS Note) PM) [place] [id number] 20:03:00 Test Item Value Reference Range Interpretation Comments S Preg (test code = S Negative *NA*(02/03/21 Preg) 2:03 PM) [facility]IxwrzocEGZTEHLFKZ3287-87-03 20:03:00 Test Item Value Reference Range Interpretation Comments WBC (test code = WBC) 7.7 3.7-10.4 [facility] TexasSpjsaydTWYRUEJWON1893-10-25 20:03:00 Test Item Value Reference Range Interpretation Comments RBC (test code = RBC) 4.58 4.20-5.40 [facility] TexasZqfqasyJZYMCDIGKY0421-18-15 20:03:00 Test Item Value Reference Range Interpretation Comments Hgb (test code = Hgb) 12.4 12.0-16.0 [facility] TexasAvugmpnIWRHFGITNS4874-42-78 20:03:00 Test Item Value Reference Range Interpretation Comments Hct (test code = Hct) 38.3 36.0-48.0 [facility] TexasLxkeusvVZXYYPTBLB5667-24-69 20:03:00 Test Item Value Reference Range Interpretation Comments MCV (test code = MCV) 83.6 80.0-98.0 [facility] TexasMaguatvTPFYRHGNEH6435-74-96 20:03:00 Test Item Value Reference Range Interpretation Comments MCH (test code = MCH) 27.2 pg 27.0-31.0 [facility] TexasSozefvuIRPUIYYFQJ3906-57-86 20:03:00 Test Item Value Reference Range Interpretation Comments MCHC (test code = MCHC) 32.5 32.0-36.0 [facility] TexasQgfzungXQXCNJNHTH5163-21-67 20:03:00 Test Item Value Reference Range Interpretation Comments RDW (test code = RDW) 15.3 11.5-14.5 [facility] TexasWienjhxMSRGYKSLEU0031-76-81 20:03:00 Test Item Value Reference Range Interpretation Comments Platelet (test code = Platelet) 438 133-450 [facility] TexasOgkokprVYVJIEVMOG1607-62-09 20:03:00 Test Item Value Reference Range Interpretation Comments MPV (test code = MPV) 7.2 7.4-10.4 [facility] TexasZqnbhwzBPHBXURNCZ7307-77-00 20:03:00 Test Item Value Reference Range Interpretation Comments Segs (test code = Segs) 52.3 45.0-75.0 [facility] TexasTjytopoRNOMUFEOZJ6312-00-73 20:03:00 Test Item Value Reference Range Interpretation Comments Lymphocytes (test code = Lymphocytes) 35.4 20.0-40.0 [place] 998951-11-23 20:03:00 Test Item Value Reference Range Interpretation Comments Monocytes (test code = Monocytes) 9.3 2.0-12.0 [place] 998951-11-23 20:03:00 Test Item Value Reference Range Interpretation Comments Eosinophils (test code = 2.1 See_Comment [A utomated message] The Eosinophils) system which ge nerated this result tra nsmitted reference range : <=4.0. The reference r zully was not used to int erpret this result as normal/abnormal . [place] 998951-11-23 20:03:00 Test Item Value Reference Range Interpretation Comments Basophils (test code = 0.9 See_Comment [Aut omated message] The Basophils) system which ge nerated this result tra nsmitted reference range : <=1.0. The reference r zully was not used to int erpret this result as normal/abnormal . [facility] TexasOtrenanWJJYOVRFMF3098-25-59 20:03:00 Test Item Value Reference Range Interpretation Comments Neutrophils # (test code = Neutrophils 4.0 1.5-8.1 #) [place] 998951-11-23 20:03:00 Test Item Value Reference Range Interpretation Comments Lymphocytes # (test code = Lymphocytes 2.7 1.0-5.5 #) [place] 998951-11-23 20:03:00 Test Item Value Reference Range Interpretation Comments Monocytes # (test code 0.7 See_Comment [Aut omated message] The = Monocytes #) system which generated this result tra nsmitted reference range : <=0.8. The reference r zluly was not used to int erpret this result as normal/abnormal . [place] 998951-11-23 20:03:00 Test Item Value Reference Range Interpretation Comments Eosinophils # (test code 0.2 See_Comment [A utomated message] The = Eosinophils #) system whic h generated this result tra nsmitted reference range : <=0.5. The reference r zully was not used to int erpret this result as normal/abnormal . [place] 998951-11-23 20:03:00 Test Item Value Reference Range Interpretation Comments Basophils # (test code 0.1 See_Comment [Aut omated message] The = Basophils #) system which generated this result tra nsmitted reference range : <=0.2. The reference r zully was not used to int erpret this result as normal/abnormal . [id number] 20:03:00 Test Item Value Reference Range Interpretation Comments Acetaminoph Lvl (test code = 32 10-20 Acetaminoph Lvl) [place] [id number] 20:03:00 Test Item Value Reference Range Interpretation Comments Ethanol Lvl (test code = Ethanol Lvl) 7 [place] [id number] 20:03:00 Test Item Value Reference Range Interpretation Comments Etoh (%) (test code = Etoh (%)) 0.007 [place] [id number] 20:03:00 Test Item Value Reference Range Interpretation Comments Salicylate Lvl (test no gt See_Comment [Autom ated message] The code = Salicylate Lvl) syste m which generated this result tra nsmitted reference range : <=30.0. The reference r zully was not used to int erpret this result as normal/abnormal . [facility] [place] [id number] 20:03:00 Test Item Value Reference Range Interpretation Comments Glucose Lvl (test code = Glucose Lvl) 90 70-99 [facility] [id number] 20:03:00 Test Item Value Reference Range Interpretation Comments BUN (test code = BUN) 6 7-22 [facility] [place] [id number] 20:03:00 Test Item Value Reference Range Interpretation Comments Creatinine Lvl (test code = Creatinine 0.83 0.50-1.40 Lvl) [facility] [place] [id number] 20:03:00 Test Item Value Reference Range Interpretation Comments Sodium Lvl (test code = Sodium Lvl) 141 135-145 [facility] [id number] 20:03:00 Test Item Value Reference Range Interpretation Comments Potassium Lvl (test code = Potassium 3.9 3.5-5.1 Lvl) [facility] [place] [id number] 20:03:00 Test Item Value Reference Range Interpretation Comments Chloride Lvl (test code = Chloride Lvl) 110 95-109 [facility] [id number] 20:03:00 Test Item Value Reference Range Interpretation Comments CO2 (test code = CO2) 28 24-32 [facility] [id number] 20:03:00 Test Item Value Reference Range Interpretation Comments Calcium Lvl (test code = Calcium Lvl) 9.0 8.5-10.5 [facility] [id number] 20:03:00 Test Item Value Reference Range Interpretation Comments Total Protein (test code = Total 6.9 6.4-8.4 Protein) [facility] [id number] 20:03:00 Test Item Value Reference Range Interpretation Comments Albumin Lvl (test code = Albumin Lvl) 3.6 3.5-5.0 [facility] [id number] 20:03:00 Test Item Value Reference Range Interpretation Comments ALT (test code = ALT) 17 See_Comment [Auto mated message] The system which ge nerated this result transmit rocky reference range : <=65. The reference range was not used to interpr et this result as jesenia l/abnormal. [facility] [place] [id number] 20:03:00 Test Item Value Reference Range Interpretation Comments AST (test code = AST) 17 See_Comment [Auto mated message] The system which ge nerated this result transmit rocky reference range : <=37. The reference range was not used to interpr et this result as jesenia l/abnormal. [facility] [place] [id number] 20:03:00 Test Item Value Reference Range Interpretation Comments Alk Phos (test code = Alk Phos) 69 39-136 [facility] [id number] 20:03:00 Test Item Value Reference Range Interpretation Comments Bili Total (test code = Bili Total) 0.2 0.2-1.3 [facility] [id number] 20:03:00 Test Item Value Reference Range Interpretation Comments AGAP (test code = AGAP) 6.9 10.0-20.0 [facility] [place] [id number] 20:03:00 Test Item Value Reference Range Interpretation Comments B/C Ratio (test code = B/C Ratio) 7 1 6-25 [facility] HermannCHEM [id number] 20:03:00 Test Item Value Reference Range Interpretation Comments Globulin (test code = Globulin) 3.3 2.7-4.2 [facility] JooceannTruzip [id number] 20:03:00 Test Item Value Reference Range Interpretation Comments A/G Ratio (test code = A/G Ratio) 1.1 1 0.7-1.6 [facility] [place] [id number] 20:03:00 Test Item Value Reference Range Interpretation Comments eGFR (test code = eGFR) 98 [facility] [place] [id number] 20:03:00 Test Item Value Reference Range Interpretation Comments Lipase Lvl (test code = Lipase Lvl) 89 73-393 [facility] PROSimity [id number] 20:03:00 Test Item Value Reference Range Interpretation Comments U Amph Scr (test code Positive *ABN*(02/03/21 = U Amph Scr) 2:03 PM) [facility] quietrevolutionDRUG [id number] 20:03:00 Test Item Value Reference Range Interpretation Comments U Clair Scr (test code Negative *NA*(02/03/21 = U Clair Scr) 2:03 PM) [facility] JooceannDRUG [id number] 20:03:00 Test Item Value Reference Range Interpretation Comments U Benzodiaz Scr (test Negative *NA*(02/03/21 code = U Benzodiaz Scr) 2:03 PM) [facility] quietrevolutionDRUG [id number] 20:03:00 Test Item Value Reference Range Interpretation Comments U Cocaine Scr (test Negative *NA*(02/03/21 code = U Cocaine Scr) 2:03 PM) [facility] [id number] 20:03:00 Test Item Value Reference Range Interpretation Comments U Cannab Scr (test Positive *ABN*(02/03/21 code = U Cannab Scr) 2:03 PM) [facility]DR[facility] [id number] 20:03:00 Test Item Value Reference Range Interpretation Comments U Opiate Scr (test Negative *NA*(02/03/21 code = U Opiate Scr) 2:03 PM) [facility]DR[facility] [id number] 20:03:00 Test Item Value Reference Range Interpretation Comments U Phencyclidine Scr (test Negative code = U Phencyclidine *NA*(02/03/21 2:03 Scr) PM) [facility] [id number] 20:03:00 Test Item Value Reference Range Interpretation Comments UDS Note (test code = See Note (02/03/21 2:03 UDS Note) PM) [facility] Cen[id number] 20:03:00 Test Item Value Reference Range Interpretation Comments S Preg (test code = S Negative *NA*(02/03/21 Preg) 2:03 PM) [facility] CenterObgthsbBTTQBKFKAT2419-91-98 20:03:00 Test Item Value Reference Range Interpretation Comments WBC (test code = WBC) 7.7 3.7-10.4 [facility] [id number] 20:03:00 Test Item Value Reference Range Interpretation Comments RBC (test code = RBC) 4.58 4.20-5.40 [facility] CenterFifhgltRDAFQXJIZA6075-15-29 20:03:00 Test Item Value Reference Range Interpretation Comments Hgb (test code = Hgb) 12.4 12.0-16.0 [facility] CenterYcfdzbjUWQTMLCYCP2315-78-38 20:03:00 Test Item Value Reference Range Interpretation Comments Hct (test code = Hct) 38.3 36.0-48.0 [facility] CenterGxolwepDPPGULQRMA0444-03-84 20:03:00 Test Item Value Reference Range Interpretation Comments MCV (test code = MCV) 83.6 80.0-98.0 [facility] CenterRomzwlkQOSXUKEJAP2461-46-17 20:03:00 Test Item Value Reference Range Interpretation Comments MCH (test code = MCH) 27.2 pg 27.0-31.0 [facility] [id number] 20:03:00 Test Item Value Reference Range Interpretation Comments MCHC (test code = MCHC) 32.5 32.0-36.0 [facility] CenterWpeodlkLZSXKMMSWS1697-99-08 20:03:00 Test Item Value Reference Range Interpretation Comments RDW (test code = RDW) 15.3 11.5-14.5 [facility] CenterKsijmcdVOMALRFQHM3754-04-14 20:03:00 Test Item Value Reference Range Interpretation Comments Platelet (test code = Platelet) 438 133-450 [facility] Cent[id number] 20:03:00 Test Item Value Reference Range Interpretation Comments MPV (test code = MPV) 7.2 7.4-10.4 [place] [id number] 20:03:00 Test Item Value Reference Range Interpretation Comments Segs (test code = Segs) 52.3 45.0-75.0 [place] [address]-11-23 20:03:00 Test Item Value Reference Range Interpretation Comments Lymphocytes (test code = Lymphocytes) 35.4 20.0-40.0 [place] [address]-11-23 20:03:00 Test Item Value Reference Range Interpretation Comments Monocytes (test code = Monocytes) 9.3 2.0-12.0 [place] [address]-11-23 20:03:00 Test Item Value Reference Range Interpretation Comments Eosinophils (test code = 2.1 See_Comment [A utomated message] The Eosinophils) system which ge nerated this result tra nsmitted reference range : <=4.0. The reference r zully was not used to int erpret this result as normal/abnormal . [place] [address]-11-23 20:03:00 Test Item Value Reference Range Interpretation Comments Basophils (test code = 0.9 See_Comment [Aut omated message] The Basophils) system which ge nerated this result tra nsmitted reference range : <=1.0. The reference r zully was not used to int erpret this result as normal/abnormal . [place] [id number] 20:03:00 Test Item Value Reference Range Interpretation Comments Neutrophils # (test code = Neutrophils 4.0 1.5-8.1 #) [place] [id number] 20:03:00 Test Item Value Reference Range Interpretation Comments Lymphocytes # (test code = Lymphocytes 2.7 1.0-5.5 #) [place] [address]-11-23 20:03:00 Test Item Value Reference Range Interpretation Comments Monocytes # (test code 0.7 See_Comment [Aut omated message] The = Monocytes #) system which generated this result tra nsmitted reference range : <=0.8. The reference r zully was not used to int erpret this result as normal/abnormal . [place] [address]-11-23 20:03:00 Test Item Value Reference Range Interpretation Comments Eosinophils # (test code 0.2 See_Comment [A utomated message] The = Eosinophils #) system whic h generated this result tra nsmitted reference range : <=0.5. The reference r zully was not used to int erpret this result as normal/abnormal . [id number] 20:03:00 Test Item Value Reference Range Interpretation Comments Basophils # (test code 0.1 See_Comment [Aut omated message] The = Basophils #) system which generated this result tra nsmitted reference range : <=0.2. The reference r zully was not used to int erpret this result as normal/abnormal . [facility]FOF[facility]NPJRUL7926[facility] 20:03:00 Test Item Value Reference Range Interpretation Comments Acetaminoph Lvl (test code = 32 10-20 Acetaminoph Lvl) [place] [id number] 20:03:00 Test Item Value Reference Range Interpretation Comments Ethanol Lvl (test code = Ethanol Lvl) 7 [place] [id number] 20:03:00 Test Item Value Reference Range Interpretation Comments Etoh (%) (test code = Etoh (%)) 0.007 [place] [id number] 20:03:00 Test Item Value Reference Range Interpretation Comments Salicylate Lvl (test no gt See_Comment [Autom ated message] The code = Salicylate Lvl) syste m which generated this result tra nsmitted reference range : <=30.0. The reference r zully was not used to int erpret this result as normal/abnormal . [facility] [id number] 20:03:00 Test Item Value Reference Range Interpretation Comments Glucose Lvl (test code = Glucose Lvl) 90 70- [facility] [id number] 20:03:00 Test Item Value Reference Range Interpretation Comments BUN (test code = BUN) 6 7- [facility] [id number] 20:03:00 Test Item Value Reference Range Interpretation Comments Creatinine Lvl (test code = Creatinine 0.83 0.50-1.40 Lvl) [facility] [id number] 20:03:00 Test Item Value Reference Range Interpretation Comments Glucose Lvl (test code = Glucose Lvl) 90 70-99 [facility] [id number] 20:03:00 Test Item Value Reference Range Interpretation Comments BUN (test code = BUN) 6 7-22 [place] 342271-11-23 20:03:00 Test Item Value Reference Range Interpretation Comments Creatinine Lvl (test code = Creatinine 0.83 0.50-1.40 Lvl) [place] 342271-11-23 20:03:00 Test Item Value Reference Range Interpretation Comments Sodium Lvl (test code = Sodium Lvl) 141 135-145 [place] 342271-11-23 20:03:00 Test Item Value Reference Range Interpretation Comments Potassium Lvl (test code = Potassium 3.9 3.5-5.1 Lvl) [place] 342271-11-23 20:03:00 Test Item Value Reference Range Interpretation Comments Sodium Lvl (test code = Sodium Lvl) 141 135-145 [place] 342271-11-23 20:03:00 Test Item Value Reference Range Interpretation Comments Chloride Lvl (test code = Chloride Lvl) 110 95-109 [place] 342271-11-23 20:03:00 Test Item Value Reference Range Interpretation Comments CO2 (test code = CO2) 28 24-32 [place] 342271-11-23 20:03:00 Test Item Value Reference Range Interpretation Comments Calcium Lvl (test code = Calcium Lvl) 9.0 8.5-10.5 [place] 342271-11-23 20:03:00 Test Item Value Reference Range Interpretation Comments Total Protein (test code = Total 6.9 6.4-8.4 Protein) [place] 342271-11-23 20:03:00 Test Item Value Reference Range Interpretation Comments Albumin Lvl (test code = Albumin Lvl) 3.6 3.5-5.0 [place] 342271-11-23 20:03:00 Test Item Value Reference Range Interpretation Comments ALT (test code = ALT) 17 See_Comment [Auto mated message] The system which ge nerated this result transmit rocky reference range : <=65. The reference range was not used to interpr et this result as jesenia l/abnormal. [place] 342271-11-23 20:03:00 Test Item Value Reference Range Interpretation Comments AST (test code = AST) 17 See_Comment [Auto mated message] The system which ge nerated this result transmit rocky reference range : <=37. The reference range was not used to interpr et this result as jesenia l/abnormal. [facility] [place] [id number] 20:03:00 Test Item Value Reference Range Interpretation Comments Alk Phos (test code = Alk Phos) 69 39-136 [facility] [place] [id number] 20:03:00 Test Item Value Reference Range Interpretation Comments Bili Total (test code = Bili Total) 0.2 0.2-1.3 [facility] [place] [id number] 20:03:00 Test Item Value Reference Range Interpretation Comments AGAP (test code = AGAP) 6.9 10.0-20.0 [facility] [place] [id number] 20:03:00 Test Item Value Reference Range Interpretation Comments Potassium Lvl (test code = Potassium 3.9 3.5-5.1 Lvl) [facility] [place] [id number] 20:03:00 Test Item Value Reference Range Interpretation Comments B/C Ratio (test code = B/C Ratio) 7 1 6-25 [facility] [place] [id number] 20:03:00 Test Item Value Reference Range Interpretation Comments Globulin (test code = Globulin) 3.3 2.7-4.2 [facility] [place] [id number] 20:03:00 Test Item Value Reference Range Interpretation Comments A/G Ratio (test code = A/G Ratio) 1.1 1 0.7-1.6 [facility] [place] [id number] 20:03:00 Test Item Value Reference Range Interpretation Comments eGFR (test code = eGFR) 98 [facility] [place] [id number] 20:03:00 Test Item Value Reference Range Interpretation Comments Lipase Lvl (test code = Lipase Lvl) 89 73-393 [facility] [id number] 20:03:00 Test Item Value Reference Range Interpretation Comments U Amph Scr (test code Positive *ABN*(02/03/21 = U Amph Scr) 2:03 PM) [facility] PR[facility] [id number] 20:03:00 Test Item Value Reference Range Interpretation Comments U Clair Scr (test code Negative *NA*(02/03/21 = U Clair Scr) 2:03 PM) [facility] [id number] 20:03:00 Test Item Value Reference Range Interpretation Comments U Benzodiaz Scr (test Negative *NA*(02/03/21 code = U Benzodiaz Scr) 2:03 PM) [facility] [id number] 20:03:00 Test Item Value Reference Range Interpretation Comments U Cocaine Scr (test Negative *NA*(02/03/21 code = U Cocaine Scr) 2:03 PM) [facility]bourannDR[facility] [id number] 20:03:00 Test Item Value Reference Range Interpretation Comments U Cannab Scr (test Positive *ABN*(02/03/21 code = U Cannab Scr) 2:03 PM) [facility] CenterannCHEM [id number] 20:03:00 Test Item Value Reference Range Interpretation Comments Chloride Lvl (test code = Chloride Lvl) 110 95-109 [facility] CenterannDRUG [id number] 20:03:00 Test Item Value Reference Range Interpretation Comments U Opiate Scr (test Negative *NA*(02/03/21 code = U Opiate Scr) 2:03 PM) [facility] CenterannDR[facility] [id number] 20:03:00 Test Item Value Reference Range Interpretation Comments U Phencyclidine Scr (test Negative code = U Phencyclidine *NA*(02/03/21 2:03 Scr) PM) [facility] CenterannDR[facility] [id number] 20:03:00 Test Item Value Reference Range Interpretation Comments UDS Note (test code = See Note (02/03/21 2:03 UDS Note) PM) [facility]KfkkgvnJZOXXDBUJTMQM1279-82-67 20:03:00 Test Item Value Reference Range Interpretation Comments S Preg (test code = S Negative *NA*(02/03/21 Preg) 2:03 PM) [facility] CenterIwjbzdwTWGMHFHASJ2769-86-68 20:03:00 Test Item Value Reference Range Interpretation Comments WBC (test code = WBC) 7.7 3.7-10.4 [facility] CenterVyzrnpxVZBZXBBSLY5533-57-75 20:03:00 Test Item Value Reference Range Interpretation Comments RBC (test code = RBC) 4.58 4.20-5.40 [facility] CenterVlacitpSLRDDTSSUO2010-45-93 20:03:00 Test Item Value Reference Range Interpretation Comments Hgb (test code = Hgb) 12.4 12.0-16.0 [facility] CenterUaohvucQDUYAXCSHC9823-71-40 20:03:00 Test Item Value Reference Range Interpretation Comments Hct (test code = Hct) 38.3 36.0-48.0 [facility] CenterTvuikkrTODSNBSDMR7660-78-29 20:03:00 Test Item Value Reference Range Interpretation Comments MCV (test code = MCV) 83.6 80.0-98.0 [facility]BgncbpyKPNUOLWHNJ3210-63-28 20:03:00 Test Item Value Reference Range Interpretation Comments MCH (test code = MCH) 27.2 pg 27.0-31.0 [facility]2021-11-23 20:03:00 Test Item Value Reference Range Interpretation Comments CO2 (test code = CO2) 28 24-32 [facility] CenterNrtlemxGOWZBGAAMU2734-85-48 20:03:00 Test Item Value Reference Range Interpretation Comments MCHC (test code = MCHC) 32.5 32.0-36.0 [facility]RrmfvdrVFRZKRHEKO5852-04-24 20:03:00 Test Item Value Reference Range Interpretation Comments RDW (test code = RDW) 15.3 11.5-14.5 [facility] TexasXwhuslrFCJGWQQZPU5857-49-69 20:03:00 Test Item Value Reference Range Interpretation Comments Platelet (test code = Platelet) 438 133-450 [facility] TexasFopbcnmHFKAWRJZBM0698-62-45 20:03:00 Test Item Value Reference Range Interpretation Comments MPV (test code = MPV) 7.2 7.4-10.4 [facility] TexasYmqxcxeBNWJXODLLD7284-96-54 20:03:00 Test Item Value Reference Range Interpretation Comments Segs (test code = Segs) 52.3 45.0-75.0 [facility] TexasOxusyajHDLGZDSRUV2847-59-99 20:03:00 Test Item Value Reference Range Interpretation Comments Lymphocytes (test code = Lymphocytes) 35.4 20.0-40.0 [facility] HospitalKzkasidCSOWXDDUEA0183-81-55 20:03:00 Test Item Value Reference Range Interpretation Comments Monocytes (test code = Monocytes) 9.3 2.0-12.0 [facility] HospitalTnbqdotNVGEUGKSCB3594-31-19 20:03:00 Test Item Value Reference Range Interpretation Comments Eosinophils (test code = 2.1 See_Comment [A utomated message] The Eosinophils) system which ge nerated this result tra nsmitted reference range : <=4.0. The reference r zully was not used to int erpret this result as normal/abnormal . [facility] TexasKwueyrsEXBRFBUTWX7150-58-57 20:03:00 Test Item Value Reference Range Interpretation Comments Basophils (test code = 0.9 See_Comment [Aut omated message] The Basophils) system which ge nerated this result tra nsmitted reference range : <=1.0. The reference r zully was not used to int erpret this result as normal/abnormal . [place] [id number] 20:03:00 Test Item Value Reference Range Interpretation Comments Neutrophils # (test code = Neutrophils 4.0 1.5-8.1 #) [facility]2021-11-23 20:03:00 Test Item Value Reference Range Interpretation Comments Calcium Lvl (test code = Calcium Lvl) 9.0 8.5-10.5 [facility] TexasNdenquwRWXLPOQGMF6986-46-60 20:03:00 Test Item Value Reference Range Interpretation Comments Lymphocytes # (test code = Lymphocytes 2.7 1.0-5.5 #) [facility] TexasPiruibnENKTUEWAKV5264-87-70 20:03:00 Test Item Value Reference Range Interpretation Comments Monocytes # (test code 0.7 See_Comment [Aut omated message] The = Monocytes #) system which generated this result tra nsmitted reference range : <=0.8. The reference r zully was not used to int erpret this result as normal/abnormal . [facility] TexasMnbrdpaVXCQRXUCVD9997-24-54 20:03:00 Test Item Value Reference Range Interpretation Comments Eosinophils # (test code 0.2 See_Comment [A utomated message] The = Eosinophils #) system whic h generated this result tra nsmitted reference range : <=0.5. The reference r zully was not used to int erpret this result as normal/abnormal . [place] [id number] 20:03:00 Test Item Value Reference Range Interpretation Comments Basophils # (test code 0.1 See_Comment [Aut omated message] The = Basophils #) system which generated this result tra nsmitted reference range : <=0.2. The reference r zully was not used to int erpret this result as normal/abnormal . [facility]UqbaqmfMFTEDQLJKZ7395-57-57 20:03:00 Test Item Value Reference Range Interpretation Comments Acetaminoph Lvl (test code = 32 10-20 Acetaminoph Lvl) [place] 215241-11-23 20:03:00 Test Item Value Reference Range Interpretation Comments Ethanol Lvl (test code = Ethanol Lvl) 7 [place] 215241-11-23 20:03:00 Test Item Value Reference Range Interpretation Comments Etoh (%) (test code = Etoh (%)) 0.007 [place] [address]-11-23 20:03:00 Test Item Value Reference Range Interpretation Comments Salicylate Lvl (test no gt See_Comment [Autom ated message] The code = Salicylate Lvl) syste m which generated this result tra nsmitted reference range : <=30.0. The reference r zully was not used to int erpret this result as normal/abnormal . [facility] [place] [id number] 20:03:00 Test Item Value Reference Range Interpretation Comments Total Protein (test code = Total 6.9 6.4-8.4 Protein) [facility] [place] [id number] 20:03:00 Test Item Value Reference Range Interpretation Comments Albumin Lvl (test code = Albumin Lvl) 3.6 3.5-5.0 [facility] [place] [id number] 20:03:00 Test Item Value Reference Range Interpretation Comments ALT (test code = ALT) 17 See_Comment [Auto mated message] The system which ge nerated this result transmit rocky reference range : <=65. The reference range was not used to interpr et this result as jesenia l/abnormal. [facility] [place] [id number] 20:03:00 Test Item Value Reference Range Interpretation Comments AST (test code = AST) 17 See_Comment [Auto mated message] The system which ge nerated this result transmit rocky reference range : <=37. The reference range was not used to interpr et this result as jesenia l/abnormal. [facility] [id number] 20:03:00 Test Item Value Reference Range Interpretation Comments Alk Phos (test code = Alk Phos) 69 39-136 [facility] [id number] 20:03:00 Test Item Value Reference Range Interpretation Comments Bili Total (test code = Bili Total) 0.2 0.2-1.3 [facility] [id number] 20:03:00 Test Item Value Reference Range Interpretation Comments AGAP (test code = AGAP) 6.9 10.0-20.0 [facility] [id number] 20:03:00 Test Item Value Reference Range Interpretation Comments B/C Ratio (test code = B/C Ratio) 7 1 6-25 [facility] [id number] 20:03:00 Test Item Value Reference Range Interpretation Comments Globulin (test code = Globulin) 3.3 2.7-4.2 [facility].ruDRUGS OF ABUSE [id number] 01:37:00 Test Item Value Reference Range Interpretation Comments UR COCAINE (test code = NEGATIVE NEGATIVE CUTO FF >/= 300 NG/ML COCAU) UR THC CANABINOIDS QL POSITIVE NEGATIVE A CUTOFF >/= 20 NG/ML SQN (test code = CANU) UR AMPHETAMINE QL SQN POSITIVE NEGATIVE A CUTOFF >/= 500 NG/ML (test code = AMPHU) UR BARBITURATE QUAL NEGATIVE NEGATIVE CUTOFF > /= 200 NG/ML (test code = BARBQLU) UR BENZODIAZEPINE (test NEGATIVE NEGATIVE CUTO FF >/= 200 NG/ML code = BENZU) UR OPIATES QUAL (test NEGATIVE NEGATIVE CUTOFF >/= 300 NG/ML code = OPIAQLU) UR PHENCYCLIDINE (PCP) NEGATIVE NEGATIVE CUTOF F >/= 25 NG/ML A (test code = PHENCU) Positiv e drug screen result provides only a "PreliminaryPos itive" test result.If a confirmation of positive result is necessary, a morespecific confirmatory te st must be ordered by the physician. Drug screens are per formed for medical (i. e. treatment)purpo ses only. Unconfirm ed screening resul ts must not beused for non-medical pur poses (e.g employment testing). URINALYSIS [id number] 01:22:00 Test Item Value Reference Range Interpretation [...] this result as normal/abnormal . UR HCG [id number] 01:22:00 Test Item Value Reference Range Interpretation Comments UR HCG QUAL (test code = HCGQLU) NEGATIVE NEGATIVE [id number] 01:21:00 Test Item Value Reference Range Interpretation Comments ALCOHOL (test code = 76 mg/dL <10 H ~~~~~~ ~~~~~~~~~~~~~~~~ ALC) ~~~~~~~~~~~~~~~ ~~~~~~~~ ~~~~~ RESULTS A RE TO BE USED FOR MEDICA L PURPOSES ONLY.F OR LEGAL PURPOSES THE SP ECIMEN MUST BE COLLECT ED BY A CHAINOF CUSTODY . LEGAL TESTING IS NOT PERFORMED BY [facility]. ~~~~~~~~~~~~~~~ ~~~~~~~~ ~~~~~~~~~~~~~~~ ~~~~~~~~ ~~~~ BASIC METABOLIC [id number] 01:21:00 Test Item Value Reference Range Interpretation [...] 9.7 mg/dL 8.4-10.2 N CA) LIVER FUNCTION [id number] 01:21:00 Test Item Value Reference Range Interpretation [...] N (test code = ALKP) CBC W/AUTO [id number] 01:08:00 Test Item Value Reference Range Interpretation [...] BA#) 0.05 x10 3/uL 0.0-0.1 N POCT [id number] 21:11:00 Test Item Value Reference Range Interpretation Comments POCT PREG (test code = 1605) Negative On board controls acceptable with C Yes Line (test code = 3574) POCT PREG LOT # (test code = 3575) POCT PREG TEST DATE (test code = 3576) [facility] [Presence] in Respiratory specimen by CANDI with probe [id number] 02:01:53 Test Item Value Reference Range Interpretation Comments SARS-CoV-2 (COVID-19) RNA Not detected Not-Detected [Presence] in Respiratory specimen by CANDI with probe detection (test code = 03565-7) DEACON NEWSOME
[2022-04-29 03:13] LABS: Absolute Lymphocytes (CBC) 2.4 K/uL (0.7-4.9); Lymphocytes % 22.4 % (15.3-44.8); MCV 70.7 fL (80-100); MPV 7.1 fL (7.6-11.3); RBC Red Blood Cell Count 3.53 M/uL (3.86-4.86)
[2022-04-29 03:24] LABS: Potassium 3.5 mmol/L (3.5-5.1)
[2022-04-29] MEDS ORDERED: NA CHLORIDE 0.9% 500 ML ONE (03:29)
--- NOTE | 2022-04-29 04:23 | EDPHYS ---
Physician Documentation [facility] Name: Orin Jackman Age: 26 yrs Sex: Female : 1995 Arrival Date: 04/29/2022 Time: 02:08 Bed 8 Private MD: ED Physician Lawrence Cannon HPI: 04/29 04:22 This 26 yrs old Female presents to ER via Wheelchair with complaints of Abdominal pain kdr and weakness. 04:23 The patient drove herself to the ED this morning with concern for generalized and kdr worsening weakness, possible need for transfusion (she has been anemic during this ) and abdominal cramping and pain. Patient is G4, P2 with 1 AB. Patient denies any fluid discharge or vaginal bleeding. She is otherwise stable and nonacute appearing in the ED and not requiring any immediate intervention. Onset: The symptoms/episode began/occurred gradually, at an unknown time. Severity of symptoms: At their worst the symptoms were moderate in the emergency department the symptoms are unchanged. The patient has experienced similar episodes in the past, chronically. The patient has been recently seen by a physician: Patient is cared for in the [facility] system. 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 - Social history:: Smoking status: Reported history of juuling and/or vaping. ROS: 04:23 Constitutional: Negative for fever, chills, and weight loss, she has been generally kdr weak and was concerned that she was nearly too weak to drive herself to the ED today Eyes: Negative for injury, pain, redness, and discharge, ENT: Negative for injury, pain, and discharge, Neck: Negative for injury, pain, and swelling, Cardiovascular: Negative for chest pain, palpitations, and edema, Respiratory: Negative for shortness of breath, cough, wheezing, and pleuritic chest pain, Back: Negative for injury and pain, : Negative for injury, bleeding, discharge, and swelling, MS/Extremity: Negative for injury and deformity, Skin: Negative for injury, rash, and discoloration, Neuro: Negative for headache, weakness, numbness, tingling, and seizure activity. Psych: Negative for depression, anxiety, suicide ideation, homicidal ideation, and hallucinations, Allergy/Immunology: Negative for hives, rash, and allergies, Endocrine: Negative for neck swelling, polydipsia, polyuria, polyphagia, and marked weight changes, Hematologic/Lymphatic: Negative for swollen nodes, abnormal bleeding, and unusual bruising. 04:23 Abdomen/GI: Positive for abdominal pain, nausea, abdominal cramps, Negative for abdominal distension, anorexia, dysphagia, hematemesis, black/tarry stool, rectal pain, rectal bleeding, bowel incontinence. Exam: 04:23 Constitutional: This is a well developed, well nourished patient who is awake, alert, kdr and in no acute distress. Head/Face: Normocephalic, atraumatic. Eyes: Pupils equal round and reactive to light, extra-ocular motions intact. Lids and lashes normal. Conjunctiva and sclera are non-icteric and not injected. Cornea within normal limits. Periorbital areas with no swelling, redness, or edema. Neck: Trachea midline, no thyromegaly or masses palpated, and no cervical lymphadenopathy. Supple, full range of motion without nuchal rigidity, or vertebral point tenderness. No Meningismus. Chest/axilla: Normal chest wall appearance and motion. Nontender with no deformity. No lesions are appreciated. Cardiovascular: Regular rate and rhythm with a normal S1 and S2. No gallops, murmurs, or rubs. Normal PMI, no JVD. No pulse deficits. Respiratory: Lungs have equal breath sounds bilaterally, clear to auscultation and percussion. No rales, rhonchi or wheezes noted. No increased work of breathing, no retractions or nasal flaring. Back: No spinal tenderness. No costovertebral tenderness. Full range of motion. Skin: Warm, dry with normal turgor. Normal color with no rashes, no lesions, and no evidence of cellulitis. MS/ Extremity: Pulses equal, no cyanosis. Neurovascular intact. Full, normal range of motion. Neuro: Awake and alert, GCS 15, oriented to person, place, time, and situation. Cranial nerves II-XII grossly intact. Motor strength 5/5 in all extremities. Sensory grossly intact. Cerebellar exam normal. Normal gait. Psych: Awake, alert, with orientation to person, place and time. Behavior, mood, and affect are within normal limits. 04:23 Abdomen/GI: Inspection: gravid appearance, Bowel sounds: active, Palpation: soft, mild abdominal tenderness, in the right upper quadrant and left upper quadrant, mass, is not appreciated, rebound tenderness, is not appreciated, voluntary guarding, is not appreciated. Vital Signs: 02:28 BP 104 / 66; Pulse 102; Resp 19; Temp 98.2(O); Pulse Ox 98% on R/A; Weight 56.25 kg; kd3 Height 5 ft. 3 in. (160.02 cm); Pain 4/10; 04:23 BP 104 / 70; Pulse 92; Resp 18; Pulse Ox 100% on R/A; kl 02:28 Body Mass Index 21.97 (56.25 kg, 160.02 cm) kd3 MDM: 04:22 Patient medically screened. kdr 04:23 Data reviewed: vital signs, nurses notes, lab test result(s). kdr 04/29 02:47 Order name: CBC with Diff; Complete Time: 03:20 kdr 04/29 02:47 Order name: Chem 7; Complete Time: 04:20 kdr Administered Medications: 03:46 Drug: NS 0.9% 500 ml Route: IV; Rate: bolus; Site: right antecubital; kl 04:35 Follow up: IV Status: Completed infusion; IV Intake: 500ml Disposition Summary: 04/29/22 04:22 Transfer Ordered Transfer Location: [facility] kdr Reason: Higher level of care kdr Condition: Fair kdr Problem: an ongoing problem kdr Symptoms: are unchanged kdr Accepting Physician: Dr. Oakley(04/29/22 05:47) yolette Diagnosis - Abdominal pain, Generalized kdr - Anemia, unspecified kdr - Weakness kdr Forms: - Medication Reconciliation Form kdr - SBAR form kdr Signatures: Dispatcher [employer] EDMS Hollie Thomas RN RN kl Rittger, Kevin, MD MD kdr Doucette, Kyli, RN RN kd3 Corrections: (The following items were deleted from the chart) 05:46 04:22 Dr. Oakley kdr kl 05:47 05:46 Dr. Cele de la vega
--- NOTE | 2022-04-29 04:23 | ER ---
Nurse's Notes [facility] Name: Orin Jackman Age: 26 yrs Sex: Female : 1995 Arrival Date: 04/29/2022 Time: 02:08 Bed 8 Private MD: Diagnosis: Abdominal pain, Generalized;Anemia, unspecified;Weakness Presentation: 04/29 02:29 Chief complaint: Patient states: I get my care at the [facility] clinic in [place]. I have kd3 chronic anemia and Crohns and I cannot tell if my abdominal pain is from my Crohns or from my hernia or from contractions. The pain does come and gone. I am also worried about my weakness and i think my anemia is being an issue for me. Coronavirus screen: Vaccine status: Patient reports being unvaccinated. Ebola Screen: No symptoms or risks identified at this time. Initial Sepsis Screen: Does the patient meet any 2 criteria? No. Patient's initial sepsis screen is negative. Does the patient have a suspected source of infection? No. Patient's initial sepsis screen is negative. Risk Assessment: Do you want to hurt yourself or someone else? Patient reports no desire to harm self or others. Onset of symptoms was April 29, 2022. 02:29 Method Of Arrival: Wheelchair kd3 02:29 Acuity: ROB 2 kb3 Triage Assessment: 02:33 General: Appears in no apparent distress. Behavior is calm, cooperative. Pain: kd3 Complains of pain in right upper quadrant and left upper quadrant. Neuro: Level of Consciousness is awake, alert, obeys commands, Oriented to person, place, time, situation. 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 - Social history:: Smoking status: Reported history of juuling and/or vaping. Screenin:52 [facility] ED Fall Risk Assessment (Adult) History of falling in the last 3 months, kl including since admission No falls in past 3 months (0 pts) Confusion or Disorientation No (0 pts) Intoxicated or Sedated No (0 pts) Impaired Gait No (0 pts) Mobility Assist Device Used No (0 pt) Altered Elimination No (0 pt) Score/Fall Risk Level 0 - 2 = Low Risk Oriented to surroundings, Maintained a safe environment. Abuse screen: Denies threats or abuse. Nutritional screening: No deficits noted. Tuberculosis screening: No symptoms or risk factors identified. Assessment: 02:50 General: Appears uncomfortable, Behavior is calm, cooperative. Pain: Complains of pain kl in right femoral area and left femoral area and abdomen and left upper quadrant and right upper quadrant Pain currently is 8 out of 10 on a pain scale. Quality of pain is described as crampy, Alleviated by rest. Neuro: No deficits noted. Cardiovascular: No deficits noted. Respiratory: No deficits noted. GI: Bowel sounds present X 4 quads. : No deficits noted. No signs and/or symptoms were reported regarding the genitourinary system. 04:34 GI: Abdomen is tender to palpation. Vital Signs: 02:28 BP 104 / 66; Pulse 102; Resp 19; Temp 98.2(O); Pulse Ox 98% on R/A; Weight 56.25 kg; kd3 Height 5 ft. 3 in. (160.02 cm); Pain 4/10; 04:23 BP 104 / 70; Pulse 92; Resp 18; Pulse Ox 100% on R/A; kl 02:28 Body Mass Index 21.97 (56.25 kg, 160.02 cm) kd3 Vitals: 02:50 Heart Tones 140. ED Course: 02:08 Patient arrived in ED. ja2 02:13 Lawrence Cannon MD is Attending Physician. kdr 02:33 Triage completed. kd3 02:33 Arm band placed on right wrist. kd3 03:05 Chem 7 Sent. kl 03:05 CBC with Diff Sent. kl 04:34 No provider procedures requiring assistance completed. Patient transferred, IV remains kl in place. 04:35 Patient has correct armband on for positive identification. Administered Medications: 03:46 Drug: NS 0.9% 500 ml Route: IV; Rate: bolus; Site: right antecubital; kl 04:35 Follow up: IV Status: Completed infusion; IV Intake: 500ml Medication: 02:52 VIS not applicable for this client. kl Intake: 04:35 IV: 500ml; Total: 500ml. kl Outcome: 04:22 ER care complete, transfer ordered by . kdr 04:34 Transferred by ground EMS to [facility]. kl 04:34 Condition: stable 04:34 Discharge instructions given to patient, Instructed on the need for transfer, Demonstrated understanding of instructions. 05:47 Patient left the ED. kl Signatures: Hollie Thomas RN RN Lawrence Foss MD MD kdr Alexander, Jessica ja2 Doucette, Kyli RN RN kd3 Bailey Johnson RN RN kb3 Corrections: (The following items were deleted from the chart) 03:31 03:31 NS 0.9% 500 ml IV at bolus in left antecubital kl kl 14:18 02:29 Acuity: ROB 3 kd3 kb3
[2022-04-29 05:56] VITALS: TEMP 98.2
[2022-04-29 05:57] VITALS: BP 104/70; O2SAT 100
== END 2022-04-29 05:47 | disposition short-term general hospital (02) ==
LOC: ER 02:03
DX: O99.019 Anemia complicating pregnancy, unspecified trimester (principal); O26.899 Other specified pregnancy related conditions, unspecified trimester; O99.619 Diseases of the digestive system complicating pregnancy, unspecified trimester; Z3A.00 Weeks of gestation of pregnancy not specified
CPT/HCPCS: 85025; 80048; 36415; 96360; 99285; J7040

== ENCOUNTER → 2023-04-05 | Emergency (ER) | payer OTHER ==
[2023-04-05 12:59] LABS: SARS-CoV-2 Antigen Rapid Res Negative (Negative)
--- NOTE | 2023-04-05 13:02 | ER ---
[facility] Name: Orin Jackman Age: 27 yrs Sex: Female : 1995 Arrival Date: 04/05/2023 Time: 12:16 Bed IW2 Private MD: Diagnosis: Streptococcal pharyngitis Presentation: 04/05 12:33 Chief complaint: Patient states: Sore throat, cough, body aches started today. ll1 Coronavirus screen: Client denies travel out of the [place] in the last 14 days. congestion, cough unrelated to allergies, fatigue, sore throat, Client presents with at least one sign or symptom that may indicate coronavirus-19. Standard/surgical mask placed on the client. Ebola Screen: Patient denies travel to an Ebola-affected area in the 21 days before illness onset. Initial Sepsis Screen: Does the patient meet any 2 criteria? No. Patient's initial sepsis screen is negative. Does the patient have a suspected source of infection? Yes: Other: throat. Risk Assessment: Do you want to hurt yourself or someone else? Patient reports no desire to harm self or others. Onset of symptoms was April 05, 2023. 12:33 Method Of Arrival: Ambulatory ll1 12:33 Acuity: ROB 4 ll1 Triage Assessment: 12:33 General: Appears uncomfortable, Behavior is calm, cooperative, appropriate for age. ll1 Pain: Complains of pain in throat Pain currently is 6 out of 10 on a pain scale. Quality of pain is described as aching. EENT: Reports nasal congestion pain when swallowing. Respiratory: Reports cough that is. 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 - Social history:: Smoking status: Reported history of juuling and/or vaping. Screenin:11 [facility] ED Fall Risk Assessment (Adult) Score/Fall Risk Level 0 - 2 = Low Risk ll1 Oriented to surroundings, Maintained a safe environment, Educated pt \T\ family on fall prevention, incl call for assistance when getting out of bed, Hourly rounding (assess needs \T\ fall precautionary measures) done. Abuse screen: Denies threats or abuse. Nutritional screening: No deficits noted. Tuberculosis screening: No symptoms or risk factors identified. Assessment: 13:12 Reassessment: No changes from previously documented assessment. Patient and/or family ll1 updated on plan of care and expected duration. Pain level reassessed. Patient is alert, oriented x 3, equal unlabored respirations, skin warm/dry/pink. Vital Signs: 12:33 BP 111 / 71; Pulse 75; Resp 17; Temp 98.4; Pulse Ox 100% ; Pain 5/10; ll1 12:33 Pain Scale: Adult ll1 ED Course: 12:19 Patient arrived in ED. ts1 12:[address] MD is Attending Physician. ec2 12:34 Triage completed. ll1 12:35 Arm band placed on. ll1 12:38 SARS RAPID Sent. ll1 12:38 Strep Sent. ll1 13:11 No provider procedures requiring assistance completed. Patient did not have IV access ll1 during this emergency room visit. 13:12 Patient has correct armband on for positive identification. Bed in low position. ll1 Provided Education on: n/a. Administered Medications: No medications were administered Medication: 13:12 VIS not applicable for this client. ll1 Outcome: 13:02 Discharge ordered by . ec2 13:11 Discharged to home ambulatory, ll1 13:11 Condition: stable 13:11 Discharge instructions given to patient, family, Instructed on discharge instructions, follow up and referral plans. medication usage, Demonstrated understanding of instructions, follow-up care, medications, Prescriptions given X 1, 13:12 Patient left the ED. ll1 Signatures: Baljinder Thomas, RN RN ll1 Jenelle Mcclure PAS PAS ts1 Romeo [address] MD MD ec2
--- NOTE | 2023-04-05 13:02 | EDPHYS ---
Physician Documentation [facility] Name: Orin Jackman Age: 27 yrs Sex: Female : 1995 Arrival Date: 04/05/2023 Time: 12:16 Bed IW2 Private MD: ED Physician Romeo Lane HPI: 04/05 12:35 This 27 yrs old Female presents to ER via Ambulatory with complaints of Strep/Exposure ec2 to civd. 12:35 Patient arrives today for cough and cold symptoms. Has been having several days of ec2 symptoms. Patient reports no fevers or chills, no nausea or vomiting, no issues with p.o. intake. Patient reports that she has a sore throat and is concerned for strep throat. Also exposed to someone with COVID.. 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 - Social history:: Smoking status: Reported history of juuling and/or vaping. ROS: 12:35 Constitutional: as per hpi ec2 Exam: 12:35 Constitutional: GEN: NAD Head: atraumatic Eyes: EOMI Ears: External ears are normal. ec2 Mouth: Posterior pharyngeal erythema without exudates. CV: regular rate LUNGS: no respiratory distress ABD: non-distended SKIN: no evidence of rashes MSK: no evidence of trauma NEURO: moves all extremities equally Vital Signs: 12:33 BP 111 / 71; Pulse 75; Resp 17; Temp 98.4; Pulse Ox 100% ; Pain 5/10; ll1 12:33 Pain Scale: Adult ll1 MDM: 12:27 Patient medically screened. ec2 12:35 Data reviewed: vital signs. ED course: Patient arrives today for URI symptoms. ec2 Examination remarkable for well-appearing nontoxic dividual is otherwise in no acute distress. Will obtain strep and COVID swab and reassess the patient. Suspect a viral infection vs strep causing her symptoms.. 13:01 ED course: Patient is strep positive. Will start on antibiotics. Return precautions ec2 given.. 04/05 12:27 Order name: SARS RAPID; Complete Time: 13:01 ec2 04/05 12:27 Order name: Strep; Complete Time: 13:01 ec2 Administered Medications: No medications were administered Disposition Summary: 04/05/23 13:02 Discharge Ordered Notes: Location: Home ec2 Condition: Stable ec2 Diagnosis - Streptococcal pharyngitis ec2 Followup: ec2 - With: Private Physician - When: - Reason: Recheck today's complaints Discharge Instructions: - Discharge Summary Sheet ec2 - Strep Throat, Adult, [id number] ec2 Forms: - Work release form ll1 - Medication Reconciliation Form ec2 - Thank You Letter ec2 - Antibiotic Education ec2 - Prescription Opioid Use ec2 - Patient Portal Instructions ec2 - Leadership Thank You Letter ec2 Prescriptions: - Augmentin 875-125 mg Oral tablet - take 1 tablet ORAL route every 12 hours for 7 days; 14 tablet; Refills: 0, ec2 Product Selection Permitted Signatures: Dispatcher [employer] Baljinder Ritter RN RN [address] MD MD ec2 Corrections: (The following items were deleted from the chart) 13:03 12:35 ED course: Patient arrives today for URI symptoms. Examination remarkable for ec2 well-appearing nontoxic dividual is otherwise in no acute distress. Will obtain strep and COVID swab and reassess the patient. Suspect a viral infection causing her symptoms.. ec2
[2023-04-05 14:56] VITALS: BP 111/71; TEMP 98.4; O2SAT 100
== END ==
LOC: ER 12:16
DX: J02.0 Streptococcal pharyngitis (principal); Z11.52 Encounter for screening for COVID-19
CPT/HCPCS: 36415; 87081; 87811; 99283

== ENCOUNTER 2024-10-31 18:03 | Emergency (ER) | payer OTHER ==
[2024-10-31 19:00] LABS: Influenza A Ag Negative; Influenza B Ag Negative
[2024-10-31 19:01] LABS: SARS-CoV-2 Antigen Rapid Res Positive (Negative)
--- NOTE | 2024-10-31 19:02 | ER ---
Nurse's Notes [facility] Name: Orin Jackman Age: 28 yrs Sex: Female : 1995 Arrival Date: 10/31/2024 Time: 18:03 Bed IW3 Private MD: Diagnosis: SARS-associated coronavirus as the cause of diseases classified elsewhere Presentation: 10/31 18:26 Chief complaint: Patient states: body aches, headache chills, itchy throat and sinus cm10 drainage onset this morning. Coronavirus screen: Client denies travel out of the [place] in the last 14 days. Ebola Screen: Patient denies travel to an Ebola-affected area in the 21 days before illness onset. Initial Sepsis Screen: Does the patient meet any 2 criteria? No. Patient's initial sepsis screen is negative. Does the patient have a suspected source of infection? No. Patient's initial sepsis screen is negative. Risk Assessment: Do you want to hurt yourself or someone else? Patient reports no desire to harm self or others. Onset of symptoms was October 31, 2024. 18:26 Method Of Arrival: Ambulatory cm10 18:26 Acuity: ROB 4 cm10 Triage Assessment: 18:28 General: Appears in no apparent distress. comfortable, Behavior is calm, cooperative. cm10 Neuro: No deficits noted. Level of Consciousness is awake, alert, obeys commands, Oriented to person, place, time, situation, Appropriate for age. Respiratory: No deficits noted. Airway is patent Respiratory effort is even, unlabored, Respiratory pattern is regular, symmetrical. Historical: - Allergies: 18:29 No Known Allergies; cm10 - PMHx: 18:29 Anemia; Anxiety; broken coccyx; Crohn's Disease; Depression; cm10 - PSHx: 18:29 Appendectomy; ovarian cystectomy; cm10 - Immunization history:: Adult Immunizations up to date. - Infectious Disease History:: Denies. - Social history:: Smoking status: Patient denies any tobacco usage or history of. Screenin:21 [facility] ED Fall Risk Assessment (Adult) History of falling in the last 3 months, ha1 including since admission No falls in past 3 months (0 pts) Confusion or Disorientation No (0 pts) Intoxicated or Sedated No (0 pts) Impaired Gait No (0 pts) Mobility Assist Device Used No (0 pt) Altered Elimination No (0 pt) Score/Fall Risk Level 0 - 2 = Low Risk Oriented to surroundings. Abuse screen: Denies threats or abuse. Denies injuries from another. Nutritional screening: No deficits noted. Tuberculosis screening: No symptoms or risk factors identified. Assessment: 19:21 Reassessment: Patient and/or family updated on plan of care and expected duration. Pain ha1 level reassessed. Patient is alert, oriented x 3, equal unlabored respirations, skin warm/dry/pink. Vital Signs: 18:26 BP 107 / 81; Pulse 105; Resp 18; Temp 98.3(O); Pulse Ox 97% on R/A; Weight 50.8 kg; cm10 Height 5 ft. 3 in. ; Pain 6/10; 18:26 Body Mass Index 19.84 (50.80 kg, 160.02 cm) cm10 18:26 Pain Scale: Adult cm10 ED Course: 18:06 Patient arrived in ED. im 18:07 Trang Field FNP-C [facility]. kb 18:07 Norbert Cobb MD is Attending Physician. kb 18:28 Triage completed. cm10 18:29 Arm band placed on right wrist. Patient placed in waiting room. cm10 18:29 Group A Streptococcus Rapid Sent. cm10 18:29 COVID-19 Ag + Flu A+B Ag Sent. cm10 18:29 COVID swab sent to lab. Strep swab sent to lab. cm10 19:00 Patient has correct armband on for positive identification. ha1 19:01 Notified Nurse Practitioner and/or Physician Manager Assurance of a critical lab result(s), ll1 covid +. 19:22 Provided Education on: plan of care . ha1 19:22 No provider procedures requiring assistance completed. Patient did not have IV access ha1 during this emergency room visit. Administered Medications: No medications were administered Medication: 19:22 VIS not applicable for this client. ha1 Outcome: 19:02 Discharge ordered by . kb 19:21 Discharged to home ambulatory, with family, ha1 19:21 Condition: stable 19:21 Discharge instructions given to patient, Instructed on discharge instructions, follow up and referral plans. Demonstrated understanding of instructions, follow-up care, 19:22 Patient left the ED. ha1 Signatures: Trang Field FNP-C FNP-Baljinder Ram, RN RN ll1 Praveena Taylor, RN RN ha1 Caitlyn Pacheco Clarissa, RN RN cm10
--- NOTE | 2024-10-31 19:02 | EDPHYS ---
Physician Documentation [facility] Name: Orin Jackman Age: 28 yrs Sex: Female : 1995 Arrival Date: 10/31/2024 Time: 18:03 Bed IW3 Private MD: ED Physician Norbert Cobb HPI: 10/31 18:50 This 28 yrs old Female presents to ER via Ambulatory with complaints of Flu Symptoms. kb 18:50 Pt is a 28 year old female who presents for cough, chills, drainage, bodyaches that kb started this morning. States she was recently exposed to covid and flu. . Historical: - Allergies: 18:29 No Known Allergies; cm10 - PMHx: 18:29 Anemia; Anxiety; broken coccyx; Crohn's Disease; Depression; cm10 - PSHx: 18:29 Appendectomy; ovarian cystectomy; cm10 - Immunization history:: Adult Immunizations up to date. - Infectious Disease History:: Denies. - Social history:: Smoking status: Patient denies any tobacco usage or history of. ROS: 18:48 Constitutional: As per HPI kb Exam: 18:48 Constitutional: This is a well developed, well nourished patient who is awake, alert, kb and in no acute distress. Head/Face: Normocephalic, atraumatic. ENT: Moist Mucous membranes Cardiovascular: Regular rate Respiratory: Respirations even and unlabored. No increased work of breathing. Talking in full sentences Skin: Warm, dry with normal turgor. Normal color. MS/ Extremity: Pulses equal, no cyanosis. Neurovascular intact. Full, normal range of motion. Neuro: Awake and alert, GCS 15, oriented to person, place, time, and situation. Vital Signs: 18:26 BP 107 / 81; Pulse 105; Resp 18; Temp 98.3(O); Pulse Ox 97% on R/A; Weight 50.8 kg; cm10 Height 5 ft. 3 in. ; Pain 6/10; 18:26 Body Mass Index 19.84 (50.80 kg, 160.02 cm) cm10 18:26 Pain Scale: Adult cm10 MDM: 18:10 Medical Screening Exam initiated kb 19:01 Differential diagnosis: covid, strep, flu, uri. Data reviewed: vital signs, nurses kb notes. Counseling: I had a detailed discussion with the patient and/or guardian regarding the historical points, exam findings, and any diagnostic results supporting the discharge/admit diagnosis, lab results, the need for outpatient follow up, a family practitioner, to return to the emergency department if symptoms worsen or persist or if there are any questions or concerns that arise at home. 10/31 18:14 Order name: COVID-19 Ag + Flu A+B Ag; Complete Time: 19:01 kb 10/31 18:14 Order name: Group A Streptococcus Rapid; Complete Time: 18:51 kb 10/31 18:51 Order name: Throat Culture EDMS Administered Medications: No medications were administered Disposition: 11/01 13:53 Co-signature as Attending Physician, Norbert Cobb MD I agree with the assessment and gavino plan of care. Disposition Summary: 10/31/24 19:02 Discharge Ordered Notes: Location: Home kb Condition: Stable kb Diagnosis - SARS-associated coronavirus as the cause of diseases classified elsewhere kb Followup: kb - With: Emergency Department - When: As needed - Reason: Worsening of condition Followup: kb - With: Private Physician - When: 2 - 3 days - Reason: Recheck today's complaints, Continuance of care, Re-evaluation by your physician Discharge Instructions: - Discharge Summary Sheet kb - COVID-19 kb - Viral Illness, Adult kb Forms: - Medication Reconciliation Form kb - Antibiotic Education kb - Prescription Opioid Use kb - Patient Portal Instructions kb - Leadership Thank You Letter kb Signatures: Dispatcher [employer] EDTrang Delgado, GREASE MACHINE WORKER-C GREASE MACHINE WORKER-Norbert Taylor MD MD cha Martinez, Clarissa, RN RN cm10 Corrections: (The following items were deleted from the chart) 10/31 18: 18:14 COVID-19 Ag + Flu A+B Ag+[id number].LAB.BRZ ordered. EDMS EDMS 18:14 18:14 Group A Streptococcus Rapid Sc+I.LAB.BRZ ordered. EDMS EDMS
[2024-11-01 02:06] VITALS: BP 107/81; TEMP 98.3; O2SAT 97
== END 2024-10-31 19:22 | disposition home or self-care (01) ==
LOC: ER 18:03
DX: U07.1 COVID-19 (principal)
CPT/HCPCS: 36415; 87070; 87428